=== PATIENT | male | born 1955 | race Caucasian/White ===

== ENCOUNTER 2016-12-13 18:30 | Inpatient (IN) | payer OTHER ==
[~2016-12-13] VITALS: Ht 177.8 cm; Wt 117.3 kg
--- NOTE | ~2016-12-13 | PROC NOTE ---
[place], [place] PROCEDURE NOTE NAME: HIMA PARNELL UNIT #: [id number] ROOM: [place] [address] DOCTOR: LINDSEY AGARWAL DO BIRTHDATE: [birth year] DOS: 12/14/2016 PROCEDURE: Central venous catheter placement. TIME: 1800 hours. INDICATIONS: Hemodynamic monitoring, intravenous access. RESIDENT: Dr. Rex Siddiqi. ATTENDING: Lindsey Agarwal DO PROCEDURE IN DETAIL: Timeout was completed, verifying correct patient, procedure, site, and positioning. The patient was placed in dependent position appropriate for central line placement, based on initially it was the left femoral vein, the left groin was prepped and draped in a sterile fashion. 1% lidocaine was used to anesthetize the skin. This attempt was unsuccessful and so the sterile scrub was broken and bleeding was controlled. The patient was reprepped and draped in a sterile fashion of the left neck. 1% lidocaine was used to anesthetize the surrounding skin. Triple-lumen catheter was introduced into the left internal jugular vein using Seldinger technique under ultrasound guidance, the catheter was threaded smoothly over the guidewire and appropriate blood return was obtained. Each lumen of the catheter was evacuated of air and flushed with sterile saline. Catheter was then sutured in place to the skin and a sterile dressing was applied. The patient tolerated the procedure well. I performed the procedure. Estimated blood loss was minimal. There were no complications. Chest x-ray is pending. LINDSEY AGARWAL DO CM:PROCNOTE:PROCEDURE NOTE 13 [id number] LINDSEY AGARWAL DO
[~2016-12-13 18:30] MED LIST: ACCUPRIL5 M1 PO; AMITRIPTYLINE H10 M1 PO; AMITRIPTYLINE10 MG PO; ATIVAN1 MG PO; ATORVASTATIN CA40 M1 PO; AUGMENTIN 875875 MG PO; BACTRIM DS 8001 TA1 PO; BUTORPHANOL10 MG/M1 NAS; CEFTRIAXONE1 GM IJ; CELEXA40 MG PO; CEPHALEXIN500 M1 PO; CLOPIDOGREL75 MG PO; Clopidogrel75 MG PO; DILTIAZEM 24HR120 MG PO; FIORICET 325 MG1 TAB PO; FLEXERIL10 MG PO; FLONASE ALLERG9.9 ML NS; FLUTICASON0.05 MG/AC NAS; HYDROCODONE BIT1 T11 PO; IMDUR60 MG PO; KEPPRA1000 MG PO; LEVOTHYROXIN0.075 MG PO; Lopressor25 MG PO; METOPROLOL50 MG PO; MIRTAZAPINE15 M2 PO; MOTRIN800 MG PO; NEURONTIN400 MG PO; NITROSTAT0.4 MG SL; OXCARBAZEPINE300 M1 PO; PLAVIX75 MG PO; PREDNICOT20 MG PO; PREDNISONE20 M1 PO; PRILOSEC20 MG PO; QUINAPRIL HYDRO1 TA3 PO; Quinapril HCl10 MG PO; ROBAXIN500 M1 PO; SIMVASTATIN20 MG PO; STADOL NS10 MG/ML NAS; SYNTHROID0.05 MG PO; TESSALON PERLE200 MG PO; TOPAMAX200 MG PO; TRAZODONE150 MG PO; VALIUM5 MG PO; ZITHROMAX Z PA250 MG PO; ZITHROMAX500 MG PO; Zofran4 MG PO
[2016-12-13 19:00] LABS: BASO # 0.1 10*3/uL (0.0-0.1); BASO % 0.7 % (0.0-1.0); EOS # 0.2 10*3/uL (0.0-0.4); EOS % 2.1 % (1.0-4.0); HEMATOCRIT 47.4 % (42.0-52.0); HEMOGLOBIN 15.9 g/dl (14.0-18.0); LYMPH % 36.3 % (27.0-41.0); MEAN CELL VOLUME 94.4 fl (80.0-94.0); MEAN CORPUSCULAR HGB 31.7 pg (27.0-31.0); MEAN CORPUSCULAR HGB CONC 33.5 g/dl (33.0-37.0); MEAN PLATELET VOLUME 10.2 fl (9.6-12.3); MONO # 0.5 10*3/uL (0.1-1.0); MONO % 4.4 % (3.0-9.0); NEUT # 6.2 10*3/uL (2.3-7.9); NEUT % 56.2 % (47.0-73.0); PLATELET COUNT AUTOMATED 238 10*3/uL (130-400); RED BLOOD COUNT 5.02 10*6/uL (4.50-5.90); RED CELL DISTRI WIDTH 14.2 % (0-14.5)
[2016-12-13 19:17] LABS: ALBUMIN 3.6 gm/dl (3.1-4.5); ALKALINE PHOSPHATASE 74 U/L (45-117); BILIRUBIN, TOTAL 0.5 mg/dl (0.2-1.0); BUN 12 mg/dl (7-24); CARBON DIOXIDE 26 mmol/L (21-32); CHLORIDE 101 mmol/L (98-107); EST GLOM FILT AFRICAN AMERICAN > 60 ml/min; GLUCOSE 170 mg/dL (65-99); MAGNESIUM 2.2 mg/dL (1.5-2.1); SGOT/AST 27 IU/L (3-35); SGPT/ALT 18 U/L (12-78); SODIUM 136 mmol/L (136-145); TOTAL PROTEIN 8.1 gm/dL (6.4-8.2)
[2016-12-13 19:18] LABS: TROPONIN I < 0.015 ng/ml (<0.045)
[2016-12-13 19:25] LABS: PROTHROMBIN TIME 10.8 SECONDS (9.0-12.4)
[2016-12-13 20:00] VITALS: BP 161/105
[2016-12-13 21:05] VITALS: BP 141/97
[2016-12-13 21:45] VITALS: BP 138/95
[2016-12-13 22:00] VITALS: BP 138/95
[2016-12-13] MEDS ORDERED: LEVEMIR10 ML SC (22:02)
[2016-12-14] VITALS: BP 124/76
[2016-12-14 07:02] LABS: BASO % 0.3 % (0.0-1.0); EOS % 0.1 % (1.0-4.0); HEMOGLOBIN 15.1 g/dl (14.0-18.0); LYMPH # 1.4 10*3/uL (1.3-4.4); MEAN CELL VOLUME 95.9 fl (80.0-94.0); MEAN CORPUSCULAR HGB 32.2 pg (27.0-31.0); MEAN CORPUSCULAR HGB CONC 33.6 g/dl (33.0-37.0); MONO # 0.1 10*3/uL (0.1-1.0); MONO % 1.1 % (3.0-9.0); PLATELET COUNT AUTOMATED 210 10*3/uL (130-400); RED BLOOD COUNT 4.69 10*6/uL (4.50-5.90); RED CELL DISTRI WIDTH 14.4 % (0-14.5); WHITE BLOOD COUNT 7.6 10*3/uL (4.8-10.8)
[2016-12-14 07:18] LABS: BUN 16 mg/dl (7-24); CARBON DIOXIDE 24 mmol/L (21-32); CHLORIDE 104 mmol/L (98-107); CHOLESTEROL 122 mg/dL (<200); EST GLOM FILT AFRICAN AMERICAN > 60 ml/min; GLUCOSE 147 mg/dL (65-99); HDL CHOLESTEROL 37 mg/dl (40-60); LDL CHOLESTEROL 67 mg/dL (9-159); MAGNESIUM 2.4 mg/dL (1.5-2.1); PHOSPHOROUS 2.7 mg/dL (2.5-4.9); POTASSIUM 4.7 mmol/L (3.5-5.1); SODIUM 136 mmol/L (136-145); TRIGLYCERIDES 90 mg/dl (<150); VLDL CHOLESTEROL 18 mg/dL (6-40)
[2016-12-14 07:24] LABS: THYROID STIM HORMONE (HS) 0.303 uIU/ml (0.358-4.75)
[2016-12-14 08:00] VITALS: BP 140/110
[2016-12-14 12:00] VITALS: BP 132/70
[2016-12-14 19:00] VITALS: BP 148/82
[2016-12-14 19:15] LABS: CKMB 1.3 ng/ml (0.5-3.6); CPK 106 U/L (39-308)
[2016-12-14 19:16] LABS: TROPONIN I < 0.015 ng/ml (<0.045)
[2016-12-14 19:22] VITALS: BP 157/73
[2016-12-14] MEDS ORDERED: ATORVASTATIN CA40 M1 PO (20:05)
[2016-12-14] MEDS ORDERED: CLOPIDOGREL75 MG PO (20:05)
[2016-12-14] MEDS ORDERED: TOPROL XL50 M1 PO (20:05)
[2016-12-14 20:33] VITALS: BP 167/77
[2016-12-14 20:48] LABS: PROTHROMBIN TIME 10.8 SECONDS (9.0-12.4)
[2016-12-16 11:37] LABS: VITAMIN D, 25-HYDROXY 30.9 ng/mL (30-100)
[2016-12-16 11:38] LABS: FOLIC ACID 3.65 ng/mL (>5.38)
== END 2016-12-14 21:45 | disposition short-term general hospital (02) | DRG 291 ==
LOC: ED 18:30 → 4E 20:06 → ICCU 20:06 → EDHOLD 20:06 → 4E 20:20 → ICCU 12-14 18:36
PROVIDERS: Internal Medicine; Internal Medicine Hospice and Palliative Medicine
PROC: 02HV33Z Insertion of Infusion Device into Superior Vena Cava, Percutaneous Approach (ICD-10-PCS; principal; 2016-12-14)
DX: I11.0 Hypertensive heart disease with heart failure (principal); I63.9 Cerebral infarction, unspecified; E11.65 Type 2 diabetes mellitus with hyperglycemia; R07.89 Other chest pain; I25.2 Old myocardial infarction; I50.31 Acute diastolic (congestive) heart failure; E83.41 Hypermagnesemia; I25.10 Atherosclerotic heart disease of native coronary artery without angina pectoris; E78.5 Hyperlipidemia, unspecified; E03.9 Hypothyroidism, unspecified; G40.909 Epilepsy, unspecified, not intractable, without status epilepticus; D75.89 Other specified diseases of blood and blood-forming organs; E66.9 Obesity, unspecified; Z91.013 Allergy to seafood; Z86.73 Personal history of transient ischemic attack (TIA), and cerebral infarction without residual deficits; Z86.718 Personal history of other venous thrombosis and embolism; Z86.711 Personal history of pulmonary embolism; Z87.01 Personal history of pneumonia (recurrent); Z68.37 Body mass index [BMI] 37.0-37.9, adult; Z90.49 Acquired absence of other specified parts of digestive tract; Z80.9 Family history of malignant neoplasm, unspecified; Z87.81 Personal history of (healed) traumatic fracture; Z88.6 Allergy status to analgesic agent; Z79.4 Long term (current) use of insulin; Z79.899 Other long term (current) drug therapy; Z72.0 Tobacco use

== ENCOUNTER 2017-02-04 10:23 | Emergency (ER) | payer OTHER ==
[~2017-02-04] VITALS: Ht 177.8 cm; Wt 104.3 kg
[~2017-02-04 10:23] MED LIST changes: +LEVEMIR10 ML SC; +TOPROL XL50 M1 PO
[2017-02-04 11:14] LABS: BASO # 0.1 10*3/uL (0.0-0.1); BASO % 0.7 % (0.0-1.0); EOS # 0.3 10*3/uL (0.0-0.4); HEMATOCRIT 45.5 % (42.0-52.0); HEMOGLOBIN 14.8 g/dl (14.0-18.0); IG # 0.1 10*3/uL (0.0-0.1); LYMPH # 3.4 10*3/uL (1.3-4.4); LYMPH % 32.5 % (27.0-41.0); MEAN CELL VOLUME 96.4 fl (80.0-94.0); MEAN CORPUSCULAR HGB 31.4 pg (27.0-31.0); MEAN CORPUSCULAR HGB CONC 32.5 g/dl (33.0-37.0); MEAN PLATELET VOLUME 10.3 fl (9.6-12.3); MONO # 0.8 10*3/uL (0.1-1.0); MONO % 7.4 % (3.0-9.0); NEUT # 5.9 10*3/uL (2.3-7.9); NEUT % 55.9 % (47.0-73.0); PLATELET COUNT AUTOMATED 219 10*3/uL (130-400); RED BLOOD COUNT 4.72 10*6/uL (4.50-5.90); RED CELL DISTRI WIDTH 14.1 % (0-14.5); WHITE BLOOD COUNT 10.6 10*3/uL (4.8-10.8)
[2017-02-04 11:22] LABS: PROTHROMBIN TIME 10.7 SECONDS (9.0-12.4)
[2017-02-04 11:32] LABS: ALBUMIN 3.3 gm/dl (3.1-4.5); BUN 12 mg/dl (7-24); CARBON DIOXIDE 26 mmol/L (21-32); CHLORIDE 103 mmol/L (98-107); EST GLOM FILT AFRICAN AMERICAN > 60 ml/min; GLUCOSE 110 mg/dL (65-99); SGOT/AST 16 IU/L (3-35); SGPT/ALT 17 U/L (12-78); SODIUM 139 mmol/L (136-145)
[2017-02-04 11:34] LABS: ALKALINE PHOSPHATASE 76 U/L (45-117); BILIRUBIN, TOTAL 0.4 mg/dl (0.2-1.0); TOTAL PROTEIN 7.6 gm/dL (6.4-8.2)
== END 2017-02-04 12:34 | disposition home or self-care (01) ==
LOC: ED 10:23
PROVIDERS: Nurse Practitioner Family
DX: M79.671 Pain in right foot (principal); E11.9 Type 2 diabetes mellitus without complications; I25.10 Atherosclerotic heart disease of native coronary artery without angina pectoris; Z86.718 Personal history of other venous thrombosis and embolism; Z87.891 Personal history of nicotine dependence; Z88.0 Allergy status to penicillin; Z91.013 Allergy to seafood; Z79.4 Long term (current) use of insulin

== ENCOUNTER 2017-02-17 11:52 | Inpatient (IN) | payer OTHER ==
[~2017-02-17] VITALS: Ht 177.8 cm; Wt 120.3 kg
[2017-02-17 11:52] VITALS: BP 138/83
[2017-02-17 12:24] LABS: BASO # 0.1 10*3/uL (0.0-0.1); BASO % 0.5 % (0.0-1.0); EOS # 0.3 10*3/uL (0.0-0.4); EOS % 1.6 % (1.0-4.0); HEMATOCRIT 43.1 % (42.0-52.0); HEMOGLOBIN 14.5 g/dl (14.0-18.0); IG # 0.1 10*3/uL (0.0-0.1); LYMPH # 3.1 10*3/uL (1.3-4.4); LYMPH % 20.2 % (27.0-41.0); MEAN CELL VOLUME 95.8 fl (80.0-94.0); MEAN CORPUSCULAR HGB 32.2 pg (27.0-31.0); MEAN CORPUSCULAR HGB CONC 33.6 g/dl (33.0-37.0); MEAN PLATELET VOLUME 10.6 fl (9.6-12.3); MONO % 6.4 % (3.0-9.0); NEUT # 10.9 10*3/uL (2.3-7.9); NEUT % 70.7 % (47.0-73.0); PLATELET COUNT AUTOMATED 230 10*3/uL (130-400); RED CELL DISTRI WIDTH 13.9 % (0-14.5); WHITE BLOOD COUNT 15.4 10*3/uL (4.8-10.8)
[2017-02-17 12:29] LABS: PROTHROMBIN TIME 10.3 SECONDS (9.0-12.4)
[2017-02-17 12:38] LABS: ALKALINE PHOSPHATASE 79 U/L (45-117); BILIRUBIN, TOTAL 0.4 mg/dl (0.2-1.0); BUN 15 mg/dl (7-24); CARBON DIOXIDE 24 mmol/L (21-32); CHLORIDE 102 mmol/L (98-107); EST GLOM FILT AFRICAN AMERICAN > 60 ml/min; GLUCOSE 172 mg/dL (65-99); SGOT/AST 19 IU/L (3-35); SGPT/ALT 14 U/L (12-78); SODIUM 135 mmol/L (136-145); TOTAL PROTEIN 7.6 gm/dL (6.4-8.2)
[2017-02-17 12:39] LABS: TROPONIN I < 0.015 ng/ml (<0.045)
[2017-02-17 12:42] VITALS: BP 108/66
[2017-02-17 13:02] VITALS: BP 100/72
[2017-02-17] MEDS ORDERED: ANTIBIOTIC (13:48)
[2017-02-17] MEDS ORDERED: LOPRESSOR50 M1 PO (15:43)
[2017-02-17] MEDS ORDERED: VENTOLIN H0.09 MG/AC INH (15:44)
[2017-02-17] MEDS ORDERED: LISINOPRIL-HYDR1 TA1 PO (15:45)
[2017-02-17] MEDS ORDERED: PROZAC40 M1 PO (15:46)
[2017-02-17] MEDS ORDERED: DOXYCYCLINE100 MG PO (15:48)
[2017-02-17] MEDS ORDERED: BUTORPHANOL10 MG/M1 NAS (15:48)
[2017-02-17] MEDS ORDERED: CYCLOBENZAPRINE10 MG PO (15:51)
[2017-02-17] MEDS ORDERED: LASIX40 MG PO (15:51)
[2017-02-17] MEDS ORDERED: NEURONTIN300 MG PO (15:52)
[2017-02-17] MEDS ORDERED: METFORMIN1000 MG PO (15:53)
[2017-02-17] MEDS ORDERED: FLONASE ALLERG9.9 ML NAS (15:53)
[2017-02-17 16:00] VITALS: BP 115/40
[2017-02-17 20:00] VITALS: BP 146/66
[2017-02-18] VITALS: BP 114/61
[2017-02-18 06:10] LABS: BASO % 0.2 % (0.0-1.0); HEMATOCRIT 40.3 % (42.0-52.0); HEMOGLOBIN 13.2 g/dl (14.0-18.0); IG # 0.2 10*3/uL (0.0-0.1); LYMPH % 11.5 % (27.0-41.0); MEAN CELL VOLUME 96.2 fl (80.0-94.0); MEAN CORPUSCULAR HGB 31.5 pg (27.0-31.0); MEAN CORPUSCULAR HGB CONC 32.8 g/dl (33.0-37.0); MEAN PLATELET VOLUME 10.7 fl (9.6-12.3); MONO # 0.5 10*3/uL (0.1-1.0); NEUT # 14.3 10*3/uL (2.3-7.9); NEUT % 84.1 % (47.0-73.0); PLATELET COUNT AUTOMATED 206 10*3/uL (130-400); RED BLOOD COUNT 4.19 10*6/uL (4.50-5.90); RED CELL DISTRI WIDTH 13.9 % (0-14.5)
[2017-02-18 06:45] LABS: ALBUMIN 2.7 gm/dl (3.1-4.5); ALKALINE PHOSPHATASE 73 U/L (45-117); BILIRUBIN, TOTAL 0.3 mg/dl (0.2-1.0); BUN 17 mg/dl (7-24); CARBON DIOXIDE 20 mmol/L (21-32); CHLORIDE 103 mmol/L (98-107); CHOLESTEROL 114 mg/dL (<200); EST GLOM FILT AFRICAN AMERICAN > 60 ml/min; GLUCOSE 200 mg/dL (65-99); HDL CHOLESTEROL 35 mg/dl (40-60); LDL CHOLESTEROL 62 mg/dL (9-159); MAGNESIUM 1.9 mg/dL (1.5-2.1); PHOSPHOROUS 2.1 mg/dL (2.5-4.9); POTASSIUM 4.5 mmol/L (3.5-5.1); PROTHROMBIN TIME 10.6 SECONDS (9.0-12.4); SGOT/AST 16 IU/L (3-35); SGPT/ALT 15 U/L (12-78); SODIUM 133 mmol/L (136-145); TOTAL PROTEIN 7.4 gm/dL (6.4-8.2); TRIGLYCERIDES 83 mg/dl (<150); VLDL CHOLESTEROL 17 mg/dL (6-40)
[2017-02-18 06:51] LABS: THYROID STIM HORMONE (HS) 0.232 uIU/ml (0.358-4.75)
[2017-02-18 06:53] LABS: HEMOGLOBIN A1c 6.3 % (4.8-5.6)
[2017-02-18 07:22] LABS: VITAMIN D, 25-HYDROXY 32.1 ng/mL (30-100)
[2017-02-18 07:23] LABS: FOLIC ACID 3.08 ng/mL (>5.38)
[2017-02-18 08:00] VITALS: BP 118/43
[2017-02-18 12:00] VITALS: BP 106/68
[2017-02-18 16:00] VITALS: BP 111/74
[2017-02-18 20:00] VITALS: BP 117/86
[2017-02-19] VITALS: BP 98/84
[2017-02-19 08:00] VITALS: BP 134/88
[2017-02-19 12:00] VITALS: BP 134/88
[2017-02-19] MEDS ORDERED: NATURE'S BLEND F1 MG PO (15:57)
[2017-02-19] MEDS ORDERED: IMDUR SA60 M1 PO (15:57)
[2017-02-19] MEDS ORDERED: PANTOPRAZOLE SO40 MG PO (15:57)
[2017-02-19] MEDS ORDERED: PREDNISONE10 MG PO (15:57)
[2017-02-19] MEDS ORDERED: K-PHOS500 MG PO (15:57)
[2017-02-19] MEDS ORDERED: RANEXA500 M1 PO (15:57)
[2017-02-19] MEDS ORDERED: CLOPIDOGREL75 MG PO (15:57)
[2017-02-19] MEDS ORDERED: ATORVASTATIN CA20 M1 PO (15:57)
[2017-02-19] MEDS ORDERED: TOPROL XL50 M1 PO (15:57)
[2017-02-19 16:00] VITALS: BP 145/83
[2017-02-19] MEDS ORDERED: DOXYCYCLINE100 MG PO (16:26)
== END 2017-02-19 16:59 | disposition home or self-care (01) | DRG 871 ==
LOC: ED 11:52 → 5E 14:20 → EDHOLD 14:20 → 5E 14:25
PROVIDERS: Emergency Medicine; Internal Medicine
DX: A41.9 Sepsis, unspecified organism (principal); J18.9 Pneumonia, unspecified organism; E43 Unspecified severe protein-calorie malnutrition; J44.1 Chronic obstructive pulmonary disease with (acute) exacerbation; J44.0 Chronic obstructive pulmonary disease with (acute) lower respiratory infection; G00-G99 Diseases of the nervous system; E87.1 Hypo-osmolality and hyponatremia; E03.9 Hypothyroidism, unspecified; I25.10 Atherosclerotic heart disease of native coronary artery without angina pectoris; G40.909 Epilepsy, unspecified, not intractable, without status epilepticus; E78.5 Hyperlipidemia, unspecified; I10 Essential (primary) hypertension; E66.9 Obesity, unspecified; F44.4 Conversion disorder with motor symptom or deficit; F17.200 Nicotine dependence, unspecified, uncomplicated; E53.8 Deficiency of other specified B group vitamins; E83.39 Other disorders of phosphorus metabolism; E11.9 Type 2 diabetes mellitus without complications; Z79.4 Long term (current) use of insulin; Q85.00 Neurofibromatosis, unspecified; Z79.899 Other long term (current) drug therapy; Z79.84 Long term (current) use of oral hypoglycemic drugs; Z86.711 Personal history of pulmonary embolism; Z79.01 Long term (current) use of anticoagulants; Z88.6 Allergy status to analgesic agent; Z91.013 Allergy to seafood; Z90.49 Acquired absence of other specified parts of digestive tract; Z80.1 Family history of malignant neoplasm of trachea, bronchus and lung; Z80.3 Family history of malignant neoplasm of breast; I25.2 Old myocardial infarction; Z68.38 Body mass index [BMI] 38.0-38.9, adult

== ENCOUNTER 2017-03-04 15:39 | Inpatient (IN) | payer OTHER ==
[~2017-03-04] VITALS: Ht 177.8 cm; Wt 119.9 kg
[~2017-03-04 15:39] MED LIST changes: +ANTIBIOTIC; +ATORVASTATIN CA20 M1 PO; +CYCLOBENZAPRINE10 MG PO; +DOXYCYCLINE100 MG PO; +FLONASE ALLERG9.9 ML NAS; +IMDUR SA60 M1 PO; +K-PHOS500 MG PO; +LASIX40 MG PO; +LISINOPRIL-HYDR1 TA1 PO; +LOPRESSOR50 M1 PO; +METFORMIN1000 MG PO; +NATURE'S BLEND F1 MG PO; +NEURONTIN300 MG PO; +PANTOPRAZOLE SO40 MG PO; +PREDNISONE10 MG PO; +PROZAC40 M1 PO; +RANEXA500 M1 PO; +VENTOLIN H0.09 MG/AC INH
[2017-03-04 15:41] VITALS: BP 134/98
[2017-03-04] MEDS ORDERED: Flovent 220 M220 MCG INH (15:46)
[2017-03-04] MEDS ORDERED: NEURONTIN100 MG PO (15:48)
[2017-03-04] MEDS ORDERED: NEURONTIN300 MG PO (15:48)
[2017-03-04] MEDS ORDERED: LANTUS100 U/ML SC (15:49)
[2017-03-04] MEDS ORDERED: NITROGLYCERIN0.4 MG PO (15:50)
[2017-03-04 15:56] LABS: BASO # 0.1 10*3/uL (0.0-0.1); BASO % 0.5 % (0.0-1.0); EOS # 0.3 10*3/uL (0.0-0.4); EOS % 1.7 % (1.0-4.0); HEMATOCRIT 49.7 % (42.0-52.0); HEMOGLOBIN 16.6 g/dl (14.0-18.0); IG # 0.2 10*3/uL (0.0-0.1); LYMPH # 4.2 10*3/uL (1.3-4.4); LYMPH % 22.3 % (27.0-41.0); MEAN CELL VOLUME 95.4 fl (80.0-94.0); MEAN CORPUSCULAR HGB 31.9 pg (27.0-31.0); MEAN CORPUSCULAR HGB CONC 33.4 g/dl (33.0-37.0); MEAN PLATELET VOLUME 10.1 fl (9.6-12.3); MONO % 5.1 % (3.0-9.0); NEUT # 13.1 10*3/uL (2.3-7.9); NEUT % 69.3 % (47.0-73.0); PLATELET COUNT AUTOMATED 279 10*3/uL (130-400); RED BLOOD COUNT 5.21 10*6/uL (4.50-5.90); RED CELL DISTRI WIDTH 14.1 % (0-14.5); WHITE BLOOD COUNT 18.9 10*3/uL (4.8-10.8)
[2017-03-04 16:17] LABS: BUN 13 mg/dl (7-24); CARBON DIOXIDE 22 mmol/L (21-32); CHLORIDE 103 mmol/L (98-107); EST GLOM FILT AFRICAN AMERICAN 59 ml/min; GLUCOSE 139 mg/dL (65-99); POTASSIUM 3.9 mmol/L (3.5-5.1); SODIUM 136 mmol/L (136-145); TROPONIN I < 0.015 ng/ml (<0.045)
[2017-03-04 17:53] VITALS: BP 136/94
[2017-03-04 18:00] VITALS: BP 130/72
[2017-03-04 18:20] VITALS: BP 130/72
[2017-03-04 20:21] LABS: LA>2 REFLEX 2 HR DRAW NOW
[2017-03-04 21:15] LABS: BILIRUBIN NEGATIVE (NEGATIVE); BLOOD 2+ (NEGATIVE); CLARITY CLEAR (CLEAR); COLOR YELLOW (YELLOW); GLUCOSE NEGATIVE (NEGATIVE); KETONE NEGATIVE (NEGATIVE); LEUKO ESTERASE NEGATIVE (NEGATIVE); NITRITE NEGATIVE (NEGATIVE); PROTEIN 1+ (NEGATIVE); SPECIFIC GRAVITY <= 1.005 (1.005-1.030); UROBILINOGEN 0.2 E.U./dl (0.2-1.0)
[2017-03-04 21:20] LABS: BACTERIA 4+; URINE REFLEX COMMENT YES (NO); WBC 21-30 wbc/hpf (0-5)
[2017-03-05 04:16] LABS: BASO # 0.1 10*3/uL (0.0-0.1); BASO % 0.5 % (0.0-1.0); EOS # 0.3 10*3/uL (0.0-0.4); EOS % 2.6 % (1.0-4.0); IG # 0.1 10*3/uL (0.0-0.1); LYMPH % 30.8 % (27.0-41.0); MEAN CELL VOLUME 95.5 fl (80.0-94.0); MEAN CORPUSCULAR HGB 31.1 pg (27.0-31.0); MEAN CORPUSCULAR HGB CONC 32.6 g/dl (33.0-37.0); MEAN PLATELET VOLUME 10.2 fl (9.6-12.3); MONO # 0.9 10*3/uL (0.1-1.0); MONO % 6.6 % (3.0-9.0); NEUT # 7.7 10*3/uL (2.3-7.9); NEUT % 58.6 % (47.0-73.0); PLATELET COUNT AUTOMATED 216 10*3/uL (130-400); RED BLOOD COUNT 4.47 10*6/uL (4.50-5.90); RED CELL DISTRI WIDTH 14.5 % (0-14.5); WHITE BLOOD COUNT 13.1 10*3/uL (4.8-10.8)
[2017-03-05 04:20] LABS: HEMATOCRIT 42.7 % (42.0-52.0); HEMOGLOBIN 13.9 g/dl (14.0-18.0)
[2017-03-05 04:25] LABS: PROTHROMBIN TIME 10.4 SECONDS (9.0-12.4)
[2017-03-05 04:35] LABS: HEMOGLOBIN A1c 6.7 % (4.8-5.6)
[2017-03-05 04:36] LABS: ALBUMIN 2.8 gm/dl (3.1-4.5); BUN 15 mg/dl (7-24); CARBON DIOXIDE 28 mmol/L (21-32); CHLORIDE 103 mmol/L (98-107); CHOLESTEROL 136 mg/dL (<200); EST GLOM FILT AFRICAN AMERICAN > 60 ml/min; GLUCOSE 102 mg/dL (65-99); MAGNESIUM 2.1 mg/dL (1.5-2.1); PHOSPHOROUS 3.8 mg/dL (2.5-4.9); POTASSIUM 3.9 mmol/L (3.5-5.1); SGOT/AST 14 IU/L (3-35); SGPT/ALT 20 U/L (12-78); SODIUM 140 mmol/L (136-145); TRIGLYCERIDES 176 mg/dl (<150); VLDL CHOLESTEROL 35 mg/dL (6-40)
[2017-03-05 04:38] LABS: ALKALINE PHOSPHATASE 68 U/L (45-117); BILIRUBIN, TOTAL 0.4 mg/dl (0.2-1.0); HDL CHOLESTEROL 33 mg/dl (40-60); LDL CHOLESTEROL 68 mg/dL (9-159); TOTAL PROTEIN 6.6 gm/dL (6.4-8.2)
[2017-03-05 06:34] LABS: FOLIC ACID 3.96 ng/mL (>5.38); VITAMIN D, 25-HYDROXY 31.3 ng/mL (30-100)
[2017-03-05 08:00] VITALS: BP 128/50
[2017-03-05 12:00] VITALS: BP 157/59
[2017-03-05 16:00] VITALS: BP 160/42
[2017-03-05 20:00] VITALS: BP 134/98
[2017-03-05 23:46] VITALS: BP 130/80
[2017-03-06] MEDS ORDERED: PANTOPRAZOLE SO40 MG PO (00:29)
[2017-03-06] MEDS ORDERED: NATURE'S BLEND F1 MG PO (00:29)
== END 2017-03-06 01:00 | disposition short-term general hospital (02) | DRG 871 ==
LOC: ED 15:39 → 5E 17:27 → EDHOLD 17:27 → 5E 17:32
PROVIDERS: Emergency Medicine; Internal Medicine
DX: A41.9 Sepsis, unspecified organism (principal); N17.0 Acute kidney failure with tubular necrosis; J18.9 Pneumonia, unspecified organism; J44.1 Chronic obstructive pulmonary disease with (acute) exacerbation; G40.909 Epilepsy, unspecified, not intractable, without status epilepticus; I25.10 Atherosclerotic heart disease of native coronary artery without angina pectoris; I10 Essential (primary) hypertension; E03.9 Hypothyroidism, unspecified; R65.20 Severe sepsis without septic shock; Z79.4 Long term (current) use of insulin; Z86.73 Personal history of transient ischemic attack (TIA), and cerebral infarction without residual deficits; Z86.718 Personal history of other venous thrombosis and embolism; Z79.01 Long term (current) use of anticoagulants; I25.2 Old myocardial infarction; Z86.711 Personal history of pulmonary embolism; Q85.00 Neurofibromatosis, unspecified; Z90.49 Acquired absence of other specified parts of digestive tract; Z90.3 Acquired absence of stomach [part of]; Z95.5 Presence of coronary angioplasty implant and graft; Z80.3 Family history of malignant neoplasm of breast; Z80.1 Family history of malignant neoplasm of trachea, bronchus and lung; Z87.891 Personal history of nicotine dependence; Z88.6 Allergy status to analgesic agent; Z91.013 Allergy to seafood; Z98.1 Arthrodesis status; R07.9 Chest pain, unspecified; E78.2 Mixed hyperlipidemia; E11.65 Type 2 diabetes mellitus with hyperglycemia; G47.33 Obstructive sleep apnea (adult) (pediatric); E66.01 Morbid (severe) obesity due to excess calories; E53.8 Deficiency of other specified B group vitamins; Z68.37 Body mass index [BMI] 37.0-37.9, adult

== ENCOUNTER 2017-03-11 16:59 | Inpatient (IN) | payer OTHER ==
[~2017-03-11] VITALS: Ht 180.3 cm; Wt 120.9 kg
[~2017-03-11 16:59] MED LIST changes: +Flovent 220 M220 MCG INH; +LANTUS100 U/ML SC; +NEURONTIN100 MG PO; +NITROGLYCERIN0.4 MG PO
[2017-03-11 17:05] VITALS: BP 151/66
[2017-03-11 17:15] VITALS: BP 158/106
[2017-03-11 17:51] LABS: BASO # 0.1 10*3/uL (0.0-0.1); BASO % 0.5 % (0.0-1.0); EOS # 0.4 10*3/uL (0.0-0.4); HEMATOCRIT 47.1 % (42.0-52.0); HEMOGLOBIN 15.3 g/dl (14.0-18.0); IG # 0.1 10*3/uL (0.0-0.1); LYMPH # 4.4 10*3/uL (1.3-4.4); LYMPH % 31.2 % (27.0-41.0); MEAN CELL VOLUME 95.7 fl (80.0-94.0); MEAN CORPUSCULAR HGB 31.1 pg (27.0-31.0); MEAN CORPUSCULAR HGB CONC 32.5 g/dl (33.0-37.0); MONO # 0.9 10*3/uL (0.1-1.0); MONO % 6.1 % (3.0-9.0); NEUT # 8.3 10*3/uL (2.3-7.9); NEUT % 58.5 % (47.0-73.0); PLATELET COUNT AUTOMATED 194 10*3/uL (130-400); RED BLOOD COUNT 4.92 10*6/uL (4.50-5.90); WHITE BLOOD COUNT 14.2 10*3/uL (4.8-10.8)
[2017-03-11 17:55] LABS: PROTHROMBIN TIME 10.1 SECONDS (9.0-12.4)
[2017-03-11 18:04] LABS: ALBUMIN 3.1 gm/dl (3.1-4.5); ALKALINE PHOSPHATASE 73 U/L (45-117); BILIRUBIN, TOTAL 0.3 mg/dl (0.2-1.0); BUN 8 mg/dl (7-24); CARBON DIOXIDE 25 mmol/L (21-32); CHLORIDE 103 mmol/L (98-107); EST GLOM FILT AFRICAN AMERICAN > 60 ml/min; GLUCOSE 130 mg/dL (65-99); POTASSIUM 4.1 mmol/L (3.5-5.1); SGOT/AST 19 IU/L (3-35); SGPT/ALT 21 U/L (12-78); SODIUM 136 mmol/L (136-145); TOTAL PROTEIN 7.4 gm/dL (6.4-8.2)
[2017-03-11 18:05] LABS: TROPONIN I 0.015 ng/ml (<0.045)
[2017-03-11 18:35] VITALS: BP 152/103
[2017-03-11 20:00] VITALS: BP 132/106
[2017-03-11 21:23] VITALS: BP 134/69
[2017-03-12] VITALS: BP 147/104
[2017-03-12 04:00] VITALS: BP 140/82
[2017-03-12 06:42] LABS: BASO % 0.5 % (0.0-1.0); EOS # 0.4 10*3/uL (0.0-0.4); EOS % 5.1 % (1.0-4.0); HEMOGLOBIN 13.4 g/dl (14.0-18.0); IG # 0.1 10*3/uL (0.0-0.1); LYMPH # 3.6 10*3/uL (1.3-4.4); LYMPH % 40.9 % (27.0-41.0); MEAN CELL VOLUME 96.4 fl (80.0-94.0); MEAN CORPUSCULAR HGB 31.8 pg (27.0-31.0); MEAN PLATELET VOLUME 10.9 fl (9.6-12.3); MONO # 0.7 10*3/uL (0.1-1.0); MONO % 7.8 % (3.0-9.0); NEUT # 3.9 10*3/uL (2.3-7.9); NEUT % 45.1 % (47.0-73.0); PLATELET COUNT AUTOMATED 170 10*3/uL (130-400); RED BLOOD COUNT 4.21 10*6/uL (4.50-5.90); RED CELL DISTRI WIDTH 14.3 % (0-14.5); WHITE BLOOD COUNT 8.7 10*3/uL (4.8-10.8)
[2017-03-12 06:44] LABS: HEMATOCRIT 40.6 % (42.0-52.0)
[2017-03-12 07:15] LABS: BUN 7 mg/dl (7-24); CARBON DIOXIDE 25 mmol/L (21-32); CHLORIDE 105 mmol/L (98-107); GLUCOSE 98 mg/dL (65-99); POTASSIUM 3.7 mmol/L (3.5-5.1); SODIUM 138 mmol/L (136-145)
[2017-03-12 07:26] LABS: EST GLOM FILT AFRICAN AMERICAN > 60 ml/min; PHOSPHOROUS 3.1 mg/dL (2.5-4.9)
[2017-03-12 08:00] VITALS: BP 120/90
[2017-03-12 11:40] VITALS: BP 130/72
[2017-03-12 16:00] VITALS: BP 140/90
[2017-03-12 20:00] VITALS: BP 121/78
[2017-03-13] VITALS: BP 126/82
[2017-03-13 07:13] LABS: BASO % 0.5 % (0.0-1.0); EOS # 0.4 10*3/uL (0.0-0.4); EOS % 4.7 % (1.0-4.0); HEMATOCRIT 40.4 % (42.0-52.0); HEMOGLOBIN 13.6 g/dl (14.0-18.0); IG # 0.1 10*3/uL (0.0-0.1); LYMPH # 3.6 10*3/uL (1.3-4.4); LYMPH % 41.8 % (27.0-41.0); MEAN CELL VOLUME 94.6 fl (80.0-94.0); MEAN CORPUSCULAR HGB 31.9 pg (27.0-31.0); MEAN CORPUSCULAR HGB CONC 33.7 g/dl (33.0-37.0); MEAN PLATELET VOLUME 11.6 fl (9.6-12.3); MONO # 0.7 10*3/uL (0.1-1.0); NEUT # 3.8 10*3/uL (2.3-7.9); NEUT % 43.7 % (47.0-73.0); NUCLEATED RED BLOOD CELL 0.2 % (0.0-0.0); PLATELET COUNT AUTOMATED 171 10*3/uL (130-400); RED BLOOD COUNT 4.27 10*6/uL (4.50-5.90); RED CELL DISTRI WIDTH 14.1 % (0-14.5); WHITE BLOOD COUNT 8.6 10*3/uL (4.8-10.8)
[2017-03-13 12:00] VITALS: BP 127/89
[2017-03-13 16:00] VITALS: BP 120/74
[2017-03-13 18:15] VITALS: BP 140/80
[2017-03-14] VITALS: BP 148/92
[2017-03-14 04:00] VITALS: BP 138/84
[2017-03-14 06:23] LABS: BASO # 0.1 10*3/uL (0.0-0.1); BASO % 0.7 % (0.0-1.0); EOS # 0.4 10*3/uL (0.0-0.4); EOS % 5.3 % (1.0-4.0); HEMATOCRIT 41.2 % (42.0-52.0); HEMOGLOBIN 13.1 g/dl (14.0-18.0); IG # 0.1 10*3/uL (0.0-0.1); LYMPH # 2.8 10*3/uL (1.3-4.4); LYMPH % 40.1 % (27.0-41.0); MEAN CORPUSCULAR HGB 31.1 pg (27.0-31.0); MEAN CORPUSCULAR HGB CONC 31.8 g/dl (33.0-37.0); MEAN PLATELET VOLUME 11.2 fl (9.6-12.3); MONO # 0.7 10*3/uL (0.1-1.0); MONO % 9.7 % (3.0-9.0); NEUT % 43.5 % (47.0-73.0); PLATELET COUNT AUTOMATED 156 10*3/uL (130-400); RED BLOOD COUNT 4.21 10*6/uL (4.50-5.90); RED CELL DISTRI WIDTH 14.1 % (0-14.5)
[2017-03-14 06:27] LABS: MEAN CELL VOLUME 97.9 fl (80.0-94.0)
[2017-03-14 06:50] LABS: BUN 11 mg/dl (7-24); CARBON DIOXIDE 29 mmol/L (21-32); CHLORIDE 103 mmol/L (98-107); EST GLOM FILT AFRICAN AMERICAN > 60 ml/min; GLUCOSE 110 mg/dL (65-99); SODIUM 139 mmol/L (136-145)
[2017-03-14 08:00] VITALS: BP 141/102
[2017-03-14] MEDS ORDERED: DOXYCYCLINE100 M3 PO (11:01)
[2017-03-14] MEDS ORDERED: TOPROL XL50 M1 PO (11:01)
[2017-03-14] MEDS ORDERED: ATORVASTATIN CA20 M1 PO (11:01)
[2017-03-14] MEDS ORDERED: IMDUR SA30 MG PO (11:01)
[2017-03-14 11:09] VITALS: BP 142/96
[2017-03-14 12:07] LABS: ORGANISM ID Not indicated. (.); SPECIMEN SOURCE Urine (.); STREPTOCOCCUS PNEUMONIAE AG Negative (Negative)
[2017-03-14 15:07] LABS: LEGIONELLA URINARY ANTIGEN Negative (Negative)
== END 2017-03-14 12:19 | disposition home health service (06) | DRG 871 ==
LOC: ED 16:59 → EDHOLD 18:44 → 5E 18:44
PROVIDERS: Family Medicine; Hospitalist; Internal Medicine; Internal Medicine Hospice and Palliative Medicine; Student in an Organized Health Care Education/Training Program
PROC: 02HV33Z Insertion of Infusion Device into Superior Vena Cava, Percutaneous Approach (ICD-10-PCS; principal; 2017-03-13)
DX: A41.9 Sepsis, unspecified organism (principal); J15.6 Pneumonia due to other Gram-negative bacteria; I11.0 Hypertensive heart disease with heart failure; E44.0 Moderate protein-calorie malnutrition; I50.32 Chronic diastolic (congestive) heart failure; T38.0X5A Adverse effect of glucocorticoids and synthetic analogues, initial encounter; J44.9 Chronic obstructive pulmonary disease, unspecified; G40.909 Epilepsy, unspecified, not intractable, without status epilepticus; G43.909 Migraine, unspecified, not intractable, without status migrainosus; I25.10 Atherosclerotic heart disease of native coronary artery without angina pectoris; E03.9 Hypothyroidism, unspecified; E78.5 Hyperlipidemia, unspecified; G47.33 Obstructive sleep apnea (adult) (pediatric); F17.210 Nicotine dependence, cigarettes, uncomplicated; E11.65 Type 2 diabetes mellitus with hyperglycemia; E66.01 Morbid (severe) obesity due to excess calories; E53.8 Deficiency of other specified B group vitamins; Y92.89 Other specified places as the place of occurrence of the external cause; Z86.73 Personal history of transient ischemic attack (TIA), and cerebral infarction without residual deficits; Z86.718 Personal history of other venous thrombosis and embolism; I25.2 Old myocardial infarction; Z90.49 Acquired absence of other specified parts of digestive tract; Z90.3 Acquired absence of stomach [part of]; Z80.3 Family history of malignant neoplasm of breast; Z80.1 Family history of malignant neoplasm of trachea, bronchus and lung; Z88.6 Allergy status to analgesic agent; Z91.013 Allergy to seafood; Z79.899 Other long term (current) drug therapy; Z79.84 Long term (current) use of oral hypoglycemic drugs; Z79.4 Long term (current) use of insulin; Z68.36 Body mass index [BMI] 36.0-36.9, adult

== ENCOUNTER 2017-03-21 10:20 | Inpatient (IN) | payer OTHER ==
[~2017-03-21] VITALS: Ht 177.8 cm; Wt 119.3 kg
--- NOTE | ~2017-03-21 | EKG ---
[place], [place] ELECTROCARDIOGRAM REPORT NAME: HIMA PARNELL UNIT #: [id number] ROOM: 412 DOCTOR: LISA VICTOR MD BIRTHDATE: [birth year] DOS: 03/21/2017 TIME: 1027 hours. Normal sinus rhythm at 77 beats per minute. The tracing is normal. No previous tracing is available for comparison. LISA VICTOR MD CM:EKGRPT:ELECTROCARDIOGRAM REPORT 1731 LISA VICTOR MD
[~2017-03-21 10:20] MED LIST changes: +DOXYCYCLINE100 M3 PO; +IMDUR SA30 MG PO
[2017-03-21 10:26] VITALS: BP 140/94
[2017-03-21 10:39] LABS: BASO # 0.1 10*3/uL (0.0-0.1); BASO % 1.2 % (0.0-1.0); EOS # 0.3 10*3/uL (0.0-0.4); EOS % 3.7 % (1.0-4.0); HEMATOCRIT 42.6 % (42.0-52.0); HEMOGLOBIN 14.2 g/dl (14.0-18.0); LYMPH # 2.5 10*3/uL (1.3-4.4); LYMPH % 29.3 % (27.0-41.0); MEAN CELL VOLUME 96.6 fl (80.0-94.0); MEAN CORPUSCULAR HGB 32.2 pg (27.0-31.0); MEAN CORPUSCULAR HGB CONC 33.3 g/dl (33.0-37.0); MEAN PLATELET VOLUME 10.8 fl (9.6-12.3); MONO # 0.6 10*3/uL (0.1-1.0); MONO % 7.4 % (3.0-9.0); NEUT % 57.9 % (47.0-73.0); PLATELET COUNT AUTOMATED 167 10*3/uL (130-400); RED BLOOD COUNT 4.41 10*6/uL (4.50-5.90); RED CELL DISTRI WIDTH 13.9 % (0-14.5); WHITE BLOOD COUNT 8.6 10*3/uL (4.8-10.8)
[2017-03-21 10:53] LABS: ALKALINE PHOSPHATASE 70 U/L (45-117); BILIRUBIN, TOTAL 0.3 mg/dl (0.2-1.0); BUN 9 mg/dl (7-24); C-REACTIVE PROTEIN 1.12 MG/DL (0-0.3); CARBON DIOXIDE 27 mmol/L (21-32); CHLORIDE 106 mmol/L (98-107); EST GLOM FILT AFRICAN AMERICAN > 60 ml/min; GLUCOSE 122 mg/dL (65-99); MAGNESIUM 2.3 mg/dL (1.5-2.1); POTASSIUM 4.1 mmol/L (3.5-5.1); SGOT/AST 23 IU/L (3-35); SGPT/ALT 20 U/L (12-78); SODIUM 137 mmol/L (136-145)
[2017-03-21 10:56] LABS: TROPONIN I < 0.015 ng/ml (<0.045)
[2017-03-21 11:00] VITALS: BP 144/100
[2017-03-21 12:47] VITALS: BP 150/85
[2017-03-21 13:00] VITALS: BP 160/98
[2017-03-21 13:06] LABS: PROTHROMBIN TIME 10.7 SECONDS (9.0-12.4)
[2017-03-21 16:00] VITALS: BP 160/90
[2017-03-21 20:00] VITALS: BP 157/83
[2017-03-22] VITALS: BP 146/57
[2017-03-22 06:32] LABS: BASO # 0.1 10*3/uL (0.0-0.1); BASO % 0.7 % (0.0-1.0); EOS # 0.4 10*3/uL (0.0-0.4); EOS % 4.2 % (1.0-4.0); HEMATOCRIT 41.4 % (42.0-52.0); HEMOGLOBIN 13.3 g/dl (14.0-18.0); IG # 0.1 10*3/uL (0.0-0.1); LYMPH # 3.6 10*3/uL (1.3-4.4); LYMPH % 38.4 % (27.0-41.0); MEAN CELL VOLUME 96.7 fl (80.0-94.0); MEAN CORPUSCULAR HGB 31.1 pg (27.0-31.0); MEAN CORPUSCULAR HGB CONC 32.1 g/dl (33.0-37.0); MEAN PLATELET VOLUME 11.1 fl (9.6-12.3); MONO # 0.7 10*3/uL (0.1-1.0); MONO % 7.6 % (3.0-9.0); NEUT # 4.5 10*3/uL (2.3-7.9); NEUT % 48.6 % (47.0-73.0); PLATELET COUNT AUTOMATED 147 10*3/uL (130-400); RED BLOOD COUNT 4.28 10*6/uL (4.50-5.90); WHITE BLOOD COUNT 9.4 10*3/uL (4.8-10.8)
[2017-03-22 06:47] LABS: ALBUMIN 2.9 gm/dl (3.1-4.5); ALKALINE PHOSPHATASE 72 U/L (45-117); BILIRUBIN, TOTAL 0.2 mg/dl (0.2-1.0); BUN 9 mg/dl (7-24); CARBON DIOXIDE 27 mmol/L (21-32); CHLORIDE 103 mmol/L (98-107); CHOLESTEROL 132 mg/dL (<200); EST GLOM FILT AFRICAN AMERICAN > 60 ml/min; GLUCOSE 114 mg/dL (65-99); HDL CHOLESTEROL 32 mg/dl (40-60); LDL CHOLESTEROL 53 mg/dL (9-159); MAGNESIUM 2.2 mg/dL (1.5-2.1); PHOSPHOROUS 2.9 mg/dL (2.5-4.9); POTASSIUM 3.8 mmol/L (3.5-5.1); SGOT/AST 21 IU/L (3-35); SGPT/ALT 20 U/L (12-78); SODIUM 137 mmol/L (136-145); TOTAL PROTEIN 6.5 gm/dL (6.4-8.2); TRIGLYCERIDES 233 mg/dl (<150); VLDL CHOLESTEROL 47 mg/dL (6-40)
[2017-03-22 07:01] LABS: PROTHROMBIN TIME 10.5 SECONDS (9.0-12.4)
[2017-03-22 08:00] VITALS: BP 148/98
== END 2017-03-22 11:58 | disposition home or self-care (01) | DRG 391 ==
LOC: ED 10:20 → EDHOLD 12:22 → 4E 12:36
PROVIDERS: Family Medicine; Student in an Organized Health Care Education/Training Program
DX: K21.9 Gastro-esophageal reflux disease without esophagitis (principal); J18.9 Pneumonia, unspecified organism; I11.0 Hypertensive heart disease with heart failure; I50.32 Chronic diastolic (congestive) heart failure; I71.2 Thoracic aortic aneurysm, without rupture; E11.65 Type 2 diabetes mellitus with hyperglycemia; R07.89 Other chest pain; E83.41 Hypermagnesemia; E78.5 Hyperlipidemia, unspecified; J44.9 Chronic obstructive pulmonary disease, unspecified; I25.10 Atherosclerotic heart disease of native coronary artery without angina pectoris; F17.210 Nicotine dependence, cigarettes, uncomplicated; G40.909 Epilepsy, unspecified, not intractable, without status epilepticus; Z86.73 Personal history of transient ischemic attack (TIA), and cerebral infarction without residual deficits; Z86.718 Personal history of other venous thrombosis and embolism; I25.2 Old myocardial infarction; Z86.711 Personal history of pulmonary embolism; Z79.4 Long term (current) use of insulin; Z95.5 Presence of coronary angioplasty implant and graft; Z90.49 Acquired absence of other specified parts of digestive tract; Z90.3 Acquired absence of stomach [part of]; Z80.1 Family history of malignant neoplasm of trachea, bronchus and lung; Z80.3 Family history of malignant neoplasm of breast; Z88.6 Allergy status to analgesic agent; Z91.013 Allergy to seafood; Z91.041 Radiographic dye allergy status; Z79.899 Other long term (current) drug therapy

== ENCOUNTER 2017-05-04 11:41 | Inpatient (IN) | payer OTHER ==
[~2017-05-04] VITALS: Ht 177.8 cm; Wt 117.3 kg
--- NOTE | 2017-05-04 12:01 | NUR ---
EKG AT 1143 BY DEJON.
[2017-05-04 12:08] VITALS: BP 124/93
[2017-05-04 12:11] LABS: BASO # 0.1 10*3/uL (0.0-0.1); BASO % 0.6 % (0.0-1.0); EOS # 0.6 10*3/uL (0.0-0.4); EOS % 3.9 % (1.0-4.0); HEMOGLOBIN 13.4 g/dl (14.0-18.0); LYMPH # 3.3 10*3/uL (1.3-4.4); LYMPH % 22.2 % (27.0-41.0); MEAN CELL VOLUME 96.7 fl (80.0-94.0); MEAN CORPUSCULAR HGB 31.6 pg (27.0-31.0); MEAN CORPUSCULAR HGB CONC 32.7 g/dl (33.0-37.0); MEAN PLATELET VOLUME 11.4 fl (9.6-12.3); MONO # 1.1 10*3/uL (0.1-1.0); MONO % 7.2 % (3.0-9.0); NEUT # 9.8 10*3/uL (2.3-7.9); NEUT % 65.2 % (47.0-73.0); NUCLEATED RED BLOOD CELL 0.3 % (0.0-0.0); PLATELET COUNT AUTOMATED 178 10*3/uL (130-400); RED BLOOD COUNT 4.24 10*6/uL (4.50-5.90); RED CELL DISTRI WIDTH 14.3 % (0-14.5)
[2017-05-04 12:23] LABS: ALBUMIN 3.3 gm/dl (3.1-4.5); ALKALINE PHOSPHATASE 78 U/L (45-117); BUN 21 mg/dl (7-24); CHLORIDE 101 mmol/L (98-107); MAGNESIUM 2.1 mg/dL (1.5-2.1); POTASSIUM 3.8 mmol/L (3.5-5.1); SGOT/AST 21 IU/L (3-35); SGPT/ALT 18 U/L (12-78); SODIUM 136 mmol/L (136-145); TOTAL PROTEIN 7.4 gm/dL (6.4-8.2)
[2017-05-04 12:24] LABS: TROPONIN I < 0.015 ng/ml (<0.045)
[2017-05-04 13:41] VITALS: BP 129/81
[2017-05-04 15:45] VITALS: BP 120/83
--- NOTE | 2017-05-04 15:45 | NUR ---
A 62, admitted to 5E, under the services of ROCHELLE Correia DO with a diagnosis of CHEST PAIN. Chief complaint is CHEST PAIN. Patient arrived via CART FROM ER. Monitor applied. Initial assessment completed. Vital signs taken and recorded. ROCHELLE CORREIA DO notified of admission to the unit. Orders received. See assessment for past medical history, medications and allergies. Patient and/or family oriented to unit. [facility] 5TH FLOOR visitation policy reviewed. Clothing/patient valuable form completed. JAZZY MCCULLOUGH
[2017-05-04 15:48] VITALS: BP 120/83
--- NOTE | 2017-05-04 17:14 | NUR ---
UNABLE TO RECONCILE HOME MEDS D/T TO PHARMACY CLOSED AND PT UNABLE TO VERIFY MEDS THAT HE TAKES AT HOME. WILL PASS ON TO NEXT SHIFT OR WAIT UNTIL SON BRINGS A MED LIST.
--- NOTE | 2017-05-04 18:14 | NUR ---
MORPHINE 2MG GIVEN FOR C/O BACK PAIN,03/27.
--- NOTE | 2017-05-04 19:30 | NUR ---
MORPHINE EFFECTIVE FOR BACK PAIN PER PT. RATED "3".
[2017-05-04 20:16] VITALS: BP 147/92
--- NOTE | 2017-05-04 21:37 | NUR ---
PT.C/O BACK PAIN RATED 8/10 NORCO GIVEN SEE MAR. RESTORIL GIVEN PER ORDER FOR INSOMNIA PER PT REQUEST. SEE MAR.
--- NOTE | 2017-05-04 22:30 | NUR ---
SUKUMAR HELPING SLIGHTLY FOR PAIN PER PT.
--- NOTE | 2017-05-04 23:52 | NUR ---
MORPHINE GIVEN PER ORDER FOR BACK AND CHEST PAIN, RATED "7" SEE MAR.
[2017-05-05] VITALS: BP 132/70
--- NOTE | 2017-05-05 00:15 | NUR ---
PER PT. MORPHINE EFFECTIVE FOR PAIN.
--- NOTE | 2017-05-05 04:25 | NUR ---
MORPHINE GIVEN PER ORDER FOR BACK AND CHEST PAIN RATED "7". SEE MAR.
--- NOTE | 2017-05-05 05:25 | NUR ---
PER PT. MORPHINE EFFECTIVE FOR PAIN IN BACK AND CHEST AREA.
[2017-05-05 06:53] LABS: BASO % 0.3 % (0.0-1.0); EOS # 0.2 10*3/uL (0.0-0.4); EOS % 1.5 % (1.0-4.0); HEMATOCRIT 37.8 % (42.0-52.0); HEMOGLOBIN 12.2 g/dl (14.0-18.0); LYMPH # 3.5 10*3/uL (1.3-4.4); LYMPH % 35.2 % (27.0-41.0); MEAN CORPUSCULAR HGB 30.7 pg (27.0-31.0); MEAN CORPUSCULAR HGB CONC 32.3 g/dl (33.0-37.0); MEAN PLATELET VOLUME 11.3 fl (9.6-12.3); MONO # 0.9 10*3/uL (0.1-1.0); MONO % 8.8 % (3.0-9.0); NEUT # 5.3 10*3/uL (2.3-7.9); NEUT % 53.8 % (47.0-73.0); PLATELET COUNT AUTOMATED 169 10*3/uL (130-400); RED BLOOD COUNT 3.98 10*6/uL (4.50-5.90); RED CELL DISTRI WIDTH 13.9 % (0-14.5); WHITE BLOOD COUNT 9.9 10*3/uL (4.8-10.8)
[2017-05-05 07:22] LABS: BUN 20 mg/dl (7-24); CHLORIDE 104 mmol/L (98-107); CREATININE 0.84 mg/dL (0.70-1.30); MAGNESIUM 2.2 mg/dL (1.5-2.1); PHOSPHOROUS 2.3 mg/dL (2.5-4.9); POTASSIUM 3.3 mmol/L (3.5-5.1); SODIUM 138 mmol/L (136-145)
[2017-05-05 07:26] LABS: ACT PARTIAL THROMBO TIME 22.4 SECONDS (20.8-31.5)
[2017-05-05 08:00] VITALS: BP 126/78
[2017-05-05] MEDS ORDERED: LOPRESSOR25 MG PO (08:55)
[2017-05-05] MEDS ORDERED: NEURONTIN600 MG PO (08:57)
[2017-05-05] MEDS ORDERED: PROTONIX40 MG PO (08:58)
--- NOTE | 2017-05-05 09:00 | NUR ---
Public Health Physician in to talk to patient. Patient states lives at home with son . There are few steps in the home. Physician: joseph mcmanus Pharmacy: [facility] Home health services: [facility] Patient's level of ADLs: MINIMAL ASSIST Patient has working utilities: all working DME: cane, home oxygen from [facility], [place], uses a night Follow-up physician's appointment after d/c: will be made by hospitalist nurse director upon discharge Does patient want to access PORTAL?: no Discharge plan discussed with patient, patient lives at home with disabled son, he states he has a daughter in law that moved in to help them he uses a cane for ambulation, has [facility], patient states he will be going back home and wants VNA to continue, conservation planner will contact VNA and inform them when patient is medically stable for discharge. RHONDA MOYA
--- NOTE | 2017-05-05 09:07 | NUR ---
I SPOKE WITH PT AND ALSO CALLED AND SPOKE WITH PHARMACIST AT [facility] AND MED REC IS UP TO DATE.
--- NOTE | 2017-05-05 09:18 | NUR ---
PT MEDICATED WITH MORPHINE 2MG FOR C/O HEADACHE AND CHEST PAIN.
[2017-05-05] MEDS ORDERED: TEMAZEPAM30 MG PO (09:50)
[2017-05-05] MEDS ORDERED: LASIX40 MG PO (09:51)
[2017-05-05] MEDS ORDERED: NORVASC5 MG PO (09:51)
[2017-05-05] MEDS ORDERED: LEXAPRO10 MG PO (09:51)
--- NOTE | 2017-05-05 11:40 | NUR ---
pt stated morphine was effective in easing his pain.
[2017-05-05 12:00] VITALS: BP 110/75
--- NOTE | 2017-05-05 12:25 | NUR ---
PT REQUESTED AND GIVEN NORCO FOR C/O CHEST AND ABD PAIN. PT RATES PAIN 6/10. WILL MONITOR. CALL LIGHT WITHIN REACH
--- NOTE | 2017-05-05 13:49 | NUR ---
PT MEDICATED WITH MORPHINE AND ZOFRAN FOR C/O HEADACHE AND NAUSEA.
[2017-05-05 16:00] VITALS: BP 142/94
--- NOTE | 2017-05-05 16:20 | NUR ---
PT INSISTING ON GOING HOME BY AMBULANCE STATING THAT "I ALWAYS GO HOME BY AMBULANCE" WHEN I STATED THAT THE AMBULANCE ARE STATING HIS INSURANCE MAY NOT PAY FOR IT AND HE WILL BE BILLED HE STATED " THAT IS OK I WILL JUST SENT THE BILL TO MY INSURANCE COMPANY MYSELF".
--- NOTE | 2017-05-05 16:50 | NUR ---
Discharge instructions reviewed with patient/family. Patient receptive and verbalizes understanding. Follow-up care arranged. Written instructions given to patient/family. SOHAIL CHIN
--- NOTE | 2017-05-05 18:27 | NUR ---
[facility] TO TRANSPORT PT TO HOME AT HIS REQUEST.
--- NOTE | 2017-05-06 07:25 | NUR ---
Patient discharged to home to [facility] visiting nurses. Received [facility] order, faxed clinicals.
--- NOTE | 2017-05-06 14:18 | NUR ---
[facility] visiting nurses called back to say they will no longer accept this patient for their services, did not give reason. Received new order for home health, contacted [facility] who does not accept patients insurance. Contacted [facility] who does accept [employer] insurance and faxed referral for review.
--- NOTE | 2017-05-06 14:51 | NUR ---
[facility] health called back and stated they will not accept this patient, they just discharged him a short time ago due to non compliance.
--- NOTE | 2017-05-06 14:59 | NUR ---
Contacted [facility] for referral, they accept patients insurance and will review referral.
== END 2017-05-05 18:27 | disposition home health service (06) | DRG 313 ==
LOC: ED 11:41 → 5E 15:04
PROVIDERS: Family Medicine Adult Medicine; Internal Medicine Nephrology; ADMIT Internal Medicine
DX: R07.89 Other chest pain (principal); I25.2 Old myocardial infarction; I50.32 Chronic diastolic (congestive) heart failure; I11.0 Hypertensive heart disease with heart failure; Z99.81 Dependence on supplemental oxygen; E11.65 Type 2 diabetes mellitus with hyperglycemia; R00.1 Bradycardia, unspecified; D72.829 Elevated white blood cell count, unspecified; D72.810 Lymphocytopenia; D72.821 Monocytosis (symptomatic); D53.9 Nutritional anemia, unspecified; E66.01 Morbid (severe) obesity due to excess calories; E03.9 Hypothyroidism, unspecified; I25.119 Atherosclerotic heart disease of native coronary artery with unspecified angina pectoris; G40.909 Epilepsy, unspecified, not intractable, without status epilepticus; E78.5 Hyperlipidemia, unspecified; J44.9 Chronic obstructive pulmonary disease, unspecified; F17.210 Nicotine dependence, cigarettes, uncomplicated; G43.909 Migraine, unspecified, not intractable, without status migrainosus; E87.6 Hypokalemia; E83.39 Other disorders of phosphorus metabolism; E83.41 Hypermagnesemia; I65.23 Occlusion and stenosis of bilateral carotid arteries; Z88.6 Allergy status to analgesic agent; I34.0 Nonrheumatic mitral (valve) insufficiency; Z91.013 Allergy to seafood; Z91.041 Radiographic dye allergy status; Z79.84 Long term (current) use of oral hypoglycemic drugs; Z79.899 Other long term (current) drug therapy; Z79.4 Long term (current) use of insulin; Z86.73 Personal history of transient ischemic attack (TIA), and cerebral infarction without residual deficits; Z86.718 Personal history of other venous thrombosis and embolism; Z86.711 Personal history of pulmonary embolism; Z90.49 Acquired absence of other specified parts of digestive tract; Z95.5 Presence of coronary angioplasty implant and graft; Z80.1 Family history of malignant neoplasm of trachea, bronchus and lung; Z80.3 Family history of malignant neoplasm of breast

== ENCOUNTER 2017-05-09 19:32 | Emergency (ER) | payer OTHER ==
[~2017-05-09] VITALS: Ht 175.2 cm; Wt 95.3 kg
--- NOTE | ~2017-05-09 | EKG ---
[place], [place] ELECTROCARDIOGRAM REPORT NAME: HIMA PARNELL UNIT #: [id number] ROOM: DOCTOR: TATIANA GAMBINO,ROXANNE BIRTHDATE: [birth year] DOS: 05/09/2017 TIME: 1940 hours. IMPRESSION: 1. Sinus rhythm, sinus tachycardia. 2. Nonspecific ST-T changes. 3. Baseline artifacts. ROXANNE SIMPSON MD CM:EKGRPT:ELECTROCARDIOGRAM REPORT [id number] ROXANNE SIMPSON MD
[~2017-05-09 19:32] MED LIST changes: +LEXAPRO10 MG PO; +LOPRESSOR25 MG PO; +NEURONTIN600 MG PO; +NORVASC5 MG PO; +PROTONIX40 MG PO; +TEMAZEPAM30 MG PO
[2017-05-09 20:18] LABS: BASO # 0.1 10*3/uL (0.0-0.1); BASO % 0.5 % (0.0-1.0); EOS # 0.3 10*3/uL (0.0-0.4); EOS % 2.6 % (1.0-4.0); HEMATOCRIT 44.5 % (42.0-52.0); HEMOGLOBIN 14.4 g/dl (14.0-18.0); LYMPH # 3.4 10*3/uL (1.3-4.4); LYMPH % 29.4 % (27.0-41.0); MEAN CELL VOLUME 95.3 fl (80.0-94.0); MEAN CORPUSCULAR HGB 30.8 pg (27.0-31.0); MEAN CORPUSCULAR HGB CONC 32.4 g/dl (33.0-37.0); MEAN PLATELET VOLUME 10.8 fl (9.6-12.3); MONO # 0.9 10*3/uL (0.1-1.0); MONO % 8.1 % (3.0-9.0); NEUT # 6.9 10*3/uL (2.3-7.9); PLATELET COUNT AUTOMATED 211 10*3/uL (130-400); RED BLOOD COUNT 4.67 10*6/uL (4.50-5.90); RED CELL DISTRI WIDTH 14.4 % (0-14.5); WHITE BLOOD COUNT 11.6 10*3/uL (4.8-10.8)
[2017-05-09 20:27] LABS: ACT PARTIAL THROMBO TIME 22.9 SECONDS (20.8-31.5)
[2017-05-09 20:36] LABS: ALBUMIN 3.5 gm/dl (3.1-4.5); ALKALINE PHOSPHATASE 80 U/L (45-117); BUN 18 mg/dl (7-24); CHLORIDE 105 mmol/L (98-107); MAGNESIUM 2.2 mg/dL (1.5-2.1); POTASSIUM 3.6 mmol/L (3.5-5.1); SGOT/AST 17 IU/L (3-35); SGPT/ALT 18 U/L (12-78); SODIUM 136 mmol/L (136-145)
[2017-05-09 20:41] LABS: TROPONIN I < 0.015 ng/ml (<0.045)
[2017-05-09 23:00] LABS: CKMB 1.1 ng/ml (0.5-3.6); CPK 91 U/L (39-308)
[2017-05-09 23:02] LABS: TROPONIN I < 0.015 ng/ml (<0.045)
== END 2017-05-10 00:55 | disposition home or self-care (01) ==
LOC: ED 19:32
PROVIDERS: Nurse Practitioner Family; Student in an Organized Health Care Education/Training Program
DX: R07.89 Other chest pain (principal); R11.10 Vomiting, unspecified; K21.9 Gastro-esophageal reflux disease without esophagitis; I25.10 Atherosclerotic heart disease of native coronary artery without angina pectoris; E78.5 Hyperlipidemia, unspecified; E03.9 Hypothyroidism, unspecified; E11.65 Type 2 diabetes mellitus with hyperglycemia; I11.0 Hypertensive heart disease with heart failure; I50.32 Chronic diastolic (congestive) heart failure; G40.909 Epilepsy, unspecified, not intractable, without status epilepticus; F17.200 Nicotine dependence, unspecified, uncomplicated; Z91.041 Radiographic dye allergy status; Z79.4 Long term (current) use of insulin; Z86.718 Personal history of other venous thrombosis and embolism; Z86.73 Personal history of transient ischemic attack (TIA), and cerebral infarction without residual deficits; Z88.6 Allergy status to analgesic agent; Z91.013 Allergy to seafood; Z79.899 Other long term (current) drug therapy

== ENCOUNTER 2017-05-16 20:31 | Emergency (ER) | payer OTHER ==
[~2017-05-16] VITALS: Ht 185.4 cm; Wt 113.4 kg
[2017-05-16 20:53] LABS: BASO # 0.1 10*3/uL (0.0-0.1); BASO % 0.4 % (0.0-1.0); EOS # 0.6 10*3/uL (0.0-0.4); EOS % 5.7 % (1.0-4.0); HEMATOCRIT 43.3 % (42.0-52.0); HEMOGLOBIN 14.1 g/dl (14.0-18.0); LYMPH % 36.1 % (27.0-41.0); MEAN CELL VOLUME 93.9 fl (80.0-94.0); MEAN CORPUSCULAR HGB 30.6 pg (27.0-31.0); MEAN CORPUSCULAR HGB CONC 32.6 g/dl (33.0-37.0); MEAN PLATELET VOLUME 11.4 fl (9.6-12.3); MONO % 8.9 % (3.0-9.0); NEUT # 5.4 10*3/uL (2.3-7.9); NEUT % 48.4 % (47.0-73.0); PLATELET COUNT AUTOMATED 221 10*3/uL (130-400); RED BLOOD COUNT 4.61 10*6/uL (4.50-5.90); RED CELL DISTRI WIDTH 14.2 % (0-14.5); WHITE BLOOD COUNT 11.2 10*3/uL (4.8-10.8)
[2017-05-16 21:10] LABS: ALBUMIN 3.3 gm/dl (3.1-4.5); ALKALINE PHOSPHATASE 71 U/L (45-117); BUN 14 mg/dl (7-24); CHLORIDE 100 mmol/L (98-107); CREATININE 1.07 mg/dL (0.70-1.30); MAGNESIUM 2.2 mg/dL (1.5-2.1); POTASSIUM 3.5 mmol/L (3.5-5.1); SGOT/AST 16 IU/L (3-35); SGPT/ALT 22 U/L (12-78); SODIUM 137 mmol/L (136-145); TOTAL PROTEIN 7.3 gm/dL (6.4-8.2)
== END 2017-05-16 22:04 | disposition home or self-care (01) ==
LOC: ED 20:31
PROVIDERS: Emergency Medicine
DX: S09.90XA Unspecified injury of head, initial encounter (principal); G43.909 Migraine, unspecified, not intractable, without status migrainosus; R56.9 Unspecified convulsions; I25.10 Atherosclerotic heart disease of native coronary artery without angina pectoris; I11.0 Hypertensive heart disease with heart failure; I50.32 Chronic diastolic (congestive) heart failure; J44.9 Chronic obstructive pulmonary disease, unspecified; K21.9 Gastro-esophageal reflux disease without esophagitis; I25.2 Old myocardial infarction; E78.5 Hyperlipidemia, unspecified; E03.9 Hypothyroidism, unspecified; E11.9 Type 2 diabetes mellitus without complications; G40.909 Epilepsy, unspecified, not intractable, without status epilepticus; F17.210 Nicotine dependence, cigarettes, uncomplicated; Z86.73 Personal history of transient ischemic attack (TIA), and cerebral infarction without residual deficits; Z86.718 Personal history of other venous thrombosis and embolism; Z91.041 Radiographic dye allergy status; Z88.6 Allergy status to analgesic agent; Z79.4 Long term (current) use of insulin; Z91.030 Bee allergy status; Z79.899 Other long term (current) drug therapy; W07.XXXA Fall from chair, initial encounter; Y93.89 Activity, other specified; Y92.10 Unspecified residential institution as the place of occurrence of the external cause; Y99.8 Other external cause status

== ENCOUNTER 2017-05-21 17:29 | Emergency (ER) | payer OTHER ==
[~2017-05-21] VITALS: Ht 177.8 cm; Wt 104.3 kg
[2017-05-21 18:13] LABS: BASO # 0.1 10*3/uL (0.0-0.1); BASO % 0.8 % (0.0-1.0); EOS # 0.4 10*3/uL (0.0-0.4); EOS % 4.3 % (1.0-4.0); LYMPH # 3.8 10*3/uL (1.3-4.4); LYMPH % 38.6 % (27.0-41.0); MEAN CORPUSCULAR HGB 31.3 pg (27.0-31.0); MEAN CORPUSCULAR HGB CONC 32.6 g/dl (33.0-37.0); MEAN PLATELET VOLUME 11.4 fl (9.6-12.3); MONO # 1.1 10*3/uL (0.1-1.0); MONO % 10.9 % (3.0-9.0); NEUT # 4.5 10*3/uL (2.3-7.9); NEUT % 45.1 % (47.0-73.0); PLATELET COUNT AUTOMATED 183 10*3/uL (130-400); RED BLOOD COUNT 4.48 10*6/uL (4.50-5.90); WHITE BLOOD COUNT 9.9 10*3/uL (4.8-10.8)
[2017-05-21 18:23] LABS: ACT PARTIAL THROMBO TIME 22.4 SECONDS (20.8-31.5)
[2017-05-21 18:30] LABS: ALBUMIN 3.5 gm/dl (3.1-4.5); ALKALINE PHOSPHATASE 73 U/L (45-117); BUN 14 mg/dl (7-24); CHLORIDE 101 mmol/L (98-107); CPK 77 U/L (39-308); CREATININE 1.08 mg/dL (0.70-1.30); POTASSIUM 3.9 mmol/L (3.5-5.1); SGOT/AST 21 IU/L (3-35); SGPT/ALT 22 U/L (12-78); SODIUM 135 mmol/L (136-145); TOTAL PROTEIN 7.3 gm/dL (6.4-8.2)
[2017-05-21 18:31] LABS: CKMB 1.1 ng/ml (0.5-3.6)
[2017-05-21 18:36] LABS: TROPONIN I < 0.015 ng/ml (<0.045)
[2017-05-21] MEDS ORDERED: Fioricet 325 MG1 TAB PO (23:22)
== END 2017-05-22 00:05 | disposition other institution (70) ==
LOC: ED 17:29
PROVIDERS: Physician Assistant
DX: G43.909 Migraine, unspecified, not intractable, without status migrainosus (principal); F17.200 Nicotine dependence, unspecified, uncomplicated; Z98.890 Other specified postprocedural states; Z90.89 Acquired absence of other organs; Z79.899 Other long term (current) drug therapy; Z91.041 Radiographic dye allergy status; Z88.6 Allergy status to analgesic agent; Z91.013 Allergy to seafood; Z86.73 Personal history of transient ischemic attack (TIA), and cerebral infarction without residual deficits

== ENCOUNTER 2017-06-11 18:36 | Emergency (ER) | payer OTHER ==
[~2017-06-11] VITALS: Ht 177.8 cm; Wt 108.4 kg
[~2017-06-11 18:36] MED LIST changes: +Fioricet 325 MG1 TAB PO
[2017-06-11 19:19] LABS: BASO # 0.1 10*3/uL (0.0-0.1); BASO % 0.7 % (0.0-1.0); EOS # 0.4 10*3/uL (0.0-0.4); EOS % 3.9 % (1.0-4.0); HEMATOCRIT 39.9 % (42.0-52.0); HEMOGLOBIN 13.2 g/dl (14.0-18.0); LYMPH # 3.8 10*3/uL (1.3-4.4); LYMPH % 36.5 % (27.0-41.0); MEAN CELL VOLUME 94.3 fl (80.0-94.0); MEAN CORPUSCULAR HGB 31.2 pg (27.0-31.0); MEAN CORPUSCULAR HGB CONC 33.1 g/dl (33.0-37.0); MEAN PLATELET VOLUME 10.9 fl (9.6-12.3); MONO # 0.9 10*3/uL (0.1-1.0); MONO % 8.3 % (3.0-9.0); NEUT # 5.2 10*3/uL (2.3-7.9); NEUT % 50.3 % (47.0-73.0); PLATELET COUNT AUTOMATED 199 10*3/uL (130-400); RED BLOOD COUNT 4.23 10*6/uL (4.50-5.90); RED CELL DISTRI WIDTH 13.5 % (0-14.5); WHITE BLOOD COUNT 10.4 10*3/uL (4.8-10.8)
[2017-06-11 19:29] LABS: ACT PARTIAL THROMBO TIME 23.4 SECONDS (20.8-31.5)
[2017-06-11 19:40] LABS: ALBUMIN 3.3 gm/dl (3.1-4.5); ALKALINE PHOSPHATASE 80 U/L (45-117); BUN 10 mg/dl (7-24); CHLORIDE 104 mmol/L (98-107); CREATININE 1.05 mg/dL (0.70-1.30); MAGNESIUM 2.1 mg/dL (1.5-2.1); POTASSIUM 3.5 mmol/L (3.5-5.1); SGOT/AST 15 IU/L (3-35); SGPT/ALT 17 U/L (12-78); SODIUM 139 mmol/L (136-145); TOTAL PROTEIN 7.3 gm/dL (6.4-8.2)
[2017-06-11 19:51] LABS: TROPONIN I < 0.015 ng/ml (<0.045)
== END 2017-06-11 20:44 | disposition home or self-care (01) ==
LOC: ED 18:36
PROVIDERS: Emergency Medicine
DX: R07.89 Other chest pain (principal); I25.10 Atherosclerotic heart disease of native coronary artery without angina pectoris; I50.32 Chronic diastolic (congestive) heart failure; G43.909 Migraine, unspecified, not intractable, without status migrainosus; G40.909 Epilepsy, unspecified, not intractable, without status epilepticus; E11.9 Type 2 diabetes mellitus without complications; F17.200 Nicotine dependence, unspecified, uncomplicated; Z88.6 Allergy status to analgesic agent; Z90.49 Acquired absence of other specified parts of digestive tract; Z91.041 Radiographic dye allergy status; Z91.013 Allergy to seafood; Z79.899 Other long term (current) drug therapy; Z79.4 Long term (current) use of insulin

== ENCOUNTER 2017-06-23 13:03 | Inpatient (IN) | payer OTHER ==
[~2017-06-23] VITALS: Ht 177.8 cm; Wt 115.9 kg
[2017-06-23 13:15] VITALS: BP 150/77
--- NOTE | 2017-06-23 14:39 | NUR ---
PT MEDICATED WITH DILAUDID 0.5 MG PER MD ORDER FOR C/O RT HIP PAIN.PULSE OX 97-98% PRIOR TO DILAUDID. PT'S PANTS REMOVED FOR XRAY AND HE WILL BE TAKEN TO XRAY IN A FEW MINUTES---ESVIN PAZ RN
[2017-06-23 14:40] LABS: BASO # 0.1 10*3/uL (0.0-0.1); BASO % 0.8 % (0.0-1.0); EOS # 0.2 10*3/uL (0.0-0.4); EOS % 2.4 % (1.0-4.0); HEMATOCRIT 39.9 % (42.0-52.0); HEMOGLOBIN 13.3 g/dl (14.0-18.0); LYMPH % 30.7 % (27.0-41.0); MEAN CELL VOLUME 93.9 fl (80.0-94.0); MEAN CORPUSCULAR HGB 31.3 pg (27.0-31.0); MEAN CORPUSCULAR HGB CONC 33.3 g/dl (33.0-37.0); MEAN PLATELET VOLUME 10.9 fl (9.6-12.3); MONO # 0.8 10*3/uL (0.1-1.0); MONO % 8.3 % (3.0-9.0); NEUT # 5.5 10*3/uL (2.3-7.9); NEUT % 57.4 % (47.0-73.0); PLATELET COUNT AUTOMATED 222 10*3/uL (130-400); RED BLOOD COUNT 4.25 10*6/uL (4.50-5.90); RED CELL DISTRI WIDTH 13.5 % (0-14.5); WHITE BLOOD COUNT 9.7 10*3/uL (4.8-10.8)
[2017-06-23 14:49] LABS: ACT PARTIAL THROMBO TIME 24.7 SECONDS (20.8-31.5); INTERNATIONAL NORM RATIO 1.1 (2.0-3.5)
[2017-06-23 15:03] LABS: ALBUMIN 3.3 gm/dl (3.1-4.5); ALKALINE PHOSPHATASE 61 U/L (45-117); BUN 12 mg/dl (7-24); CHLORIDE 103 mmol/L (98-107); CREATININE 0.78 mg/dL (0.70-1.30); POTASSIUM 3.7 mmol/L (3.5-5.1); SGOT/AST 135 IU/L (3-35); SGPT/ALT 74 U/L (12-78); SODIUM 136 mmol/L (136-145); TOTAL PROTEIN 6.9 gm/dL (6.4-8.2)
[2017-06-23 15:06] LABS: TROPONIN I < 0.015 ng/ml (<0.045)
[2017-06-23 15:51] VITALS: BP 160/90
--- NOTE | 2017-06-23 15:52 | NUR ---
PT HAS A SMALL AMOUNT OF RELIEF IN RIGHT HIP PAIN AFTER DILAUDID. REMAINS ALERT. SARA ASHFORD
[2017-06-23 16:45] VITALS: BP 160/88
--- NOTE | 2017-06-23 17:13 | NUR ---
SPOKE TO PHARMACIST STAR AT [facility]. WAITING ON LIST OF HOME MEDS TO BE FAXED.
--- NOTE | 2017-06-23 17:15 | NUR ---
A 62, admitted to 5E, under the services of LINDSEY Mccurdy DO with a diagnosis of CHEST PAIN, RIGHT HIP PAIN. Chief complaint is PAIN. Patient arrived via bed from ER. Monitor applied. Initial assessment completed. Vital signs taken and recorded. LINDSEY MCCURDY DO notified of admission to the unit. Orders received. See assessment for past medical history, medications and allergies. Patient and/or family oriented to unit. [facility] visitation policy reviewed. Clothing/patient valuable form completed. ASSESSMENT COMPLETE. SKIN INTACT. FLU AND PNEUMONIA VACCINATIONS CURRENT. WILL UPDATE HOME MED LIST. FREDY JOSEPH
[2017-06-23 17:19] VITALS: BP 121/73
--- NOTE | 2017-06-23 18:28 | NUR ---
CALLED DR JENKINS [facility] SERVICE REGARDING NEW PT CONSULT. WAITING CARD HANGER BACK.
--- NOTE | 2017-06-23 18:35 | NUR ---
DR PARNELL CALLED REGARDING PT CONSULT. HE WILL SEE PT TOMORROW MORNING. NO NEW ORDERS
[2017-06-23] MEDS ORDERED: METOPROLOL SUCC50 M1 PO (19:38)
--- NOTE | 2017-06-23 19:41 | NUR ---
24 HR chart check completed.
[2017-06-23] MEDS ORDERED: NORCO 5-325 TA1 EACH PO (19:45)
--- NOTE | 2017-06-23 19:54 | NUR ---
PTS HOME MEDICATIONS VERIFIED VIA LIST SENT FROM [facility]. DR KAUR NOTIFIED
[2017-06-23 20:00] VITALS: BP 140/100
--- NOTE | 2017-06-23 21:26 | NUR ---
SCHEDULED RESTORIL GIVEN.
--- NOTE | 2017-06-23 22:20 | NUR ---
PATIENT ASLEEP. RESTORIL EFFECTIVE.
[2017-06-24] VITALS: BP 135/81
--- NOTE | 2017-06-24 00:57 | NUR ---
C/O 01/25 RT HIP PAIN. MEDICATED WITH PRN NORCO ORDERED AND PER PATIENT REQUEST.
--- NOTE | 2017-06-24 01:57 | NUR ---
PATIENT ASLEEP. NO SIGNS OF PAIN. NORCO EFFECTIVE.
[2017-06-24 06:41] LABS: BASO # 0.1 10*3/uL (0.0-0.1); BASO % 0.8 % (0.0-1.0); EOS # 0.6 10*3/uL (0.0-0.4); EOS % 6.1 % (1.0-4.0); HEMATOCRIT 40.9 % (42.0-52.0); HEMOGLOBIN 13.6 g/dl (14.0-18.0); LYMPH # 2.8 10*3/uL (1.3-4.4); LYMPH % 28.3 % (27.0-41.0); MEAN CORPUSCULAR HGB 31.3 pg (27.0-31.0); MEAN CORPUSCULAR HGB CONC 33.3 g/dl (33.0-37.0); MEAN PLATELET VOLUME 11.3 fl (9.6-12.3); MONO # 0.7 10*3/uL (0.1-1.0); MONO % 7.2 % (3.0-9.0); NEUT # 5.7 10*3/uL (2.3-7.9); NEUT % 57.2 % (47.0-73.0); PLATELET COUNT AUTOMATED 232 10*3/uL (130-400); RED BLOOD COUNT 4.35 10*6/uL (4.50-5.90); RED CELL DISTRI WIDTH 13.7 % (0-14.5)
[2017-06-24 07:05] LABS: ALBUMIN 3.4 gm/dl (3.1-4.5); ALKALINE PHOSPHATASE 60 U/L (45-117); BUN 11 mg/dl (7-24); CHLORIDE 102 mmol/L (98-107); CREATININE 0.81 mg/dL (0.70-1.30); PHOSPHOROUS 3.6 mg/dL (2.5-4.9); POTASSIUM 3.9 mmol/L (3.5-5.1); SGOT/AST 74 IU/L (3-35); SGPT/ALT 76 U/L (12-78); SODIUM 136 mmol/L (136-145); TOTAL PROTEIN 6.9 gm/dL (6.4-8.2)
[2017-06-24 07:28] LABS: VITAMIN D, 25-HYDROXY 27.9 ng/mL (30-100)
--- NOTE | 2017-06-24 07:37 | NUR ---
C/O 10/10 PAIN TO RIGHT HIP. MEDICATED WITH PRN NORCO ORDERED AND PER PATIENT REQUEST. WILL MONITOR FOR EFFECTIVESS.
[2017-06-24 08:00] VITALS: BP 152/90
--- NOTE | 2017-06-24 08:00 | NUR ---
PT AWAKE. ASSESSMENT COMPLETE. PT STATES PRIOR MEDICATION EFFECTIVE IN RELIEVING RIGHT HIP PAIN. BED LOW. CALL RIVERA IN REACH.
--- NOTE | 2017-06-24 09:00 | NUR ---
Carpet Layer in to talk to patient. Patient states lives at home with disabled son. There are few steps in the home. Physician: heri Pharmacy: [facility] Home health services: [facility] Patient's level of ADLs: MINIMAL ASSIST Patient has working utilities: all working DME: home oxygen, from [employer], cane Follow-up physician's appointment after d/c: will be made by hospitalist nurse director upon discharge Does patient want to access PORTAL?: no Discharge plan discussed with patient, patient lives at home with a disabled son, he stated he uses a cane for ambulation, has home oxygen he uses a night, discussed with patient a discharge plan including a short term jail for rehab and patient was undecided at this time. stated wanted to wait and see what the doctors report was, case management will talk with patient again in am. RHONDA MOYA
--- NOTE | 2017-06-24 09:50 | NUR ---
ASSISTING PT TO BATHROOM AND HE BEGAN TO CRY IN PAIN IN HIS RIGHT HIP. ADMINISTERED IV DILAUDID PER PT REQUEST FOR RIGHT HIP PAIN RATED 9/10. WILL MONITOR FOR EFFECTIVENESS. BED LOW. CALL RIVERA IN REACH
--- NOTE | 2017-06-24 10:40 | NUR ---
MEDICATION EFFECTIVE. PT SLEEPING. RESPS REG EASY WITH NO DISTRESS NOTED.
[2017-06-24 12:00] VITALS: BP 123/85
--- NOTE | 2017-06-24 12:50 | NUR ---
PT UP WITH PT. COULD NOT TOLERATE AMBULATION. ADMINISTERED PO NORCO PER REQUEST FOR RIGHT HIP PAIN RATED 9/10. BED LOW. CALL RIVERA IN REACH
--- NOTE | 2017-06-24 13:19 | NUR ---
SPOKE TO DR MACK OFFICE AND LEFT CONSULT INFORMATION. WAITING [employer] OPERATOR BACK
--- NOTE | 2017-06-24 13:30 | NUR ---
PHYSICAL THERAPY PAtient evaluated on 5, full evaluation to follow. Continue with PT as per plan of care with fall, left newer hemiparesis, recent fall at home with significant right hip pain and acute debility precautions. Will require SNF for impaired mobility. PAtient with episode with PT with severe pain after ambulationg 8 feet with walke/ min (A): patient with need for immediate sit, patient kept attempting to sit on floor: PT asked nursing staff for help- max (A) x 2 for patient into wheelchair and returned to bed, patient upright the entire episode. Nurse aware and present. Dr Browning educated and possible consult for Dr. Lester due to severe pian complaints and episode noted above. Thank you for this referral. Michelle Mariano,PT PAtient high complexity via chart review, tests and evalatuion: 43774. Will require SNF for impaired mobility as paotient is home alone and cares for handicapped son. Thank you for this referral. Michelle Mckeon,PT
[2017-06-24 16:00] VITALS: BP 161/80
[2017-06-24 17:39] VITALS: BP 134/80
[2017-06-24 20:00] VITALS: BP 96/66
--- NOTE | 2017-06-24 20:43 | NUR ---
PATIENT MEDICATED WITH NORCO FOR COMPLAINTS OF RIGHT HIP PAIN. PATIENT STATES PAIN IS A 7/10. WILL MONITOR FOR EFFECTIVENESS. CALL LIGHT IN REACH.
--- NOTE | 2017-06-24 22:00 | NUR ---
NORCO EFFECTIVE AT THIS TIME. PATIENT STATES HIP FEELS BETTER THAN IT DID. WILL CONTINUE TO MONITOR. CALL LIGHT IN REACH.
[2017-06-25] VITALS: BP 142/82
--- NOTE | 2017-06-25 00:19 | NUR ---
PATIENT MEDICATED WITH NORCO FOR COMPLAINTS OF RIGHT HIP PAIN. WILL MONITOR FOR EFFECTIVENESS OF MEDICATION. CALL LIGHT IN REACH.
--- NOTE | 2017-06-25 00:54 | NUR ---
NORCO EFFECTIVE AT THIS TIME. PATIENT RESTING IN BED WITH EYES CLOSED. NO SIGNS OR SYMPTOMS OF DISTRESS NOTED. AROUSES TO VERBAL STIMULI. WILL CONTINUE TO MONITOR. CALL LIGHT IN REACH.
--- NOTE | 2017-06-25 02:15 | NUR ---
MEDICATED WITH DILAUDID FOR RIGHT HIP PAIN. WILL MONITOR FOR EFFECTIVENESS. CALL LIGHT IN REACH.
--- NOTE | 2017-06-25 02:58 | NUR ---
PRN DILAUDID EFFECTIVE AT THIS TIME. NO SIGNS OR SYMPTOMS OF DISTRESS NOTED. PATIENT RESTING IN BED WITH EYES CLOSED. WILL CONTINUE TO MONITOR. CALL LIGHT IN REACH.
[2017-06-25 07:21] LABS: BASO # 0.1 10*3/uL (0.0-0.1); BASO % 0.7 % (0.0-1.0); EOS # 0.7 10*3/uL (0.0-0.4); EOS % 5.5 % (1.0-4.0); HEMATOCRIT 41.1 % (42.0-52.0); HEMOGLOBIN 13.4 g/dl (14.0-18.0); LYMPH # 4.1 10*3/uL (1.3-4.4); LYMPH % 34.4 % (27.0-41.0); MEAN CELL VOLUME 94.5 fl (80.0-94.0); MEAN CORPUSCULAR HGB 30.8 pg (27.0-31.0); MEAN CORPUSCULAR HGB CONC 32.6 g/dl (33.0-37.0); MEAN PLATELET VOLUME 11.1 fl (9.6-12.3); MONO # 1.2 10*3/uL (0.1-1.0); MONO % 9.8 % (3.0-9.0); NEUT # 5.8 10*3/uL (2.3-7.9); NEUT % 48.9 % (47.0-73.0); PLATELET COUNT AUTOMATED 228 10*3/uL (130-400); RED BLOOD COUNT 4.35 10*6/uL (4.50-5.90); RED CELL DISTRI WIDTH 13.9 % (0-14.5); WHITE BLOOD COUNT 11.9 10*3/uL (4.8-10.8)
[2017-06-25 07:51] LABS: ALBUMIN 3.1 gm/dl (3.1-4.5); BUN 18 mg/dl (7-24); CHLORIDE 99 mmol/L (98-107); CREATININE 0.97 mg/dL (0.70-1.30); POTASSIUM 3.9 mmol/L (3.5-5.1); SGOT/AST 45 IU/L (3-35); SGPT/ALT 69 U/L (12-78); SODIUM 134 mmol/L (136-145); TOTAL PROTEIN 6.8 gm/dL (6.4-8.2)
[2017-06-25 07:52] LABS: ALKALINE PHOSPHATASE 58 U/L (45-117)
[2017-06-25 08:00] VITALS: BP 108/57
--- NOTE | 2017-06-25 09:00 | NUR ---
case management visits with patient, discussed with patient a short term alf, he was agreeable to this, [facility] he [facility] be in rooms 1-8 on the ortho wing, if not he wanted to go to any place in [place], workforce planner will make referral, case management will follow
--- NOTE | 2017-06-25 09:34 | NUR ---
Occupational Therapy evaluation completed this date on 5 with full eval to follow. Precautions include fall risk, bed alarm, seizure precautions, right hip pain, left hemiparesis, moderate complexity level 28905. Recommend OT per POC and SNF upon d/c to enable safe return home at [facility]. Thank you for this referral. Kellie Vogel OTR/l
--- NOTE | 2017-06-25 10:22 | NUR ---
DILAUDID 0.5MG GIVEN FOR C/O GENERALIZED HIP PAIN, 05/27.
--- NOTE | 2017-06-25 10:45 | NUR ---
Patient stated he would like to go to snf, he wants to go to [facility] only if he can have a room on the ortho bo in rooms 1 through 8, otherwise he will go to [facility] in [place]. Contacted Elsie at [facility], she doesn't have any available beds in the ortho wing at this time. Will contact Leticia and fax referral to [facility].
--- NOTE | 2017-06-25 10:51 | NUR ---
Referral faxed to [place], waiting on acceptance, will require precert.
--- NOTE | 2017-06-25 11:25 | NUR ---
PHYSICAL THERAPY Darryn supine in bed before his therapy session. Checked for Pt having any fracture and no fractuer reported. Transfer supine/sit MIN A X 1, sitting balance CGA X 1, X 6 min sitting. Sit/stand and standing balance with standard walker MOD A X 1. Then gait 16', X 1, MOD IN FLIGHT REFUELING MANAGER X 1, verbal cueing for gait, walker, balance safety to Pt's bedside chair and sit. Pt with call light and phone. Report no displaced fracture. MANJULA PEACOCK SLIME PLANT OPERATOR HELPER.
[2017-06-25 12:00] VITALS: BP 105/63
--- NOTE | 2017-06-25 13:57 | NUR ---
NORCO 5/325 MG GIVEN FOR C/O HIP PAIN,04/27.
--- NOTE | 2017-06-25 15:08 | NUR ---
Patient has been accepted to [facility] building 3. Nurse to Nurse call [phone]. Precert will be started today, waiting on auth.
[2017-06-25 16:00] VITALS: BP 120/74
[2017-06-25 20:00] VITALS: BP 100/57
--- NOTE | 2017-06-25 20:25 | NUR ---
PATIENT MEDICATED WITH NORCO FOR COMPLAINTS OF RIGHT HIP PAIN. WILL MONITOR FOR EFFECTIVENESS. CALL LIGHT IN REACH.
--- NOTE | 2017-06-25 22:18 | NUR ---
PATIENT STATED NORCO WAS BARELY EFFECTIVE.
--- NOTE | 2017-06-25 22:40 | NUR ---
PATIENT MEDICATED WITH DILAUDID 0.5MG FOR COMPLAINTS OF RIGHT HIP PAIN. WILL MONITOR FOR EFFECTIVENESS.
--- NOTE | 2017-06-25 23:30 | NUR ---
DILAUDID EFFECTIVE AT THIS TIME. RESTING IN BED WITH EYES CLOSED. AROUSES TO VERBAL STIMULI. NO SIGNS OR SYMPTOMS OF DISTRESS NOTED. CALL LIGHT IN REACH.
[2017-06-26] VITALS: BP 100/61
--- NOTE | 2017-06-26 03:06 | NUR ---
PATIENT MEDICATED WITH NORCO FOR COMPLAINTS OF RIGHT HIP PAIN. WILL CONTINUE TO MONITOR. CALL LIGHT IN REACH.
--- NOTE | 2017-06-26 04:41 | NUR ---
OMARCO EFFECTIVE. PATIENT RESTING IN BED WITH EYES CLOSED. NO SIGNS OR SYMPTOMS OF DISTRESS NOTED. AROUSES TO VERBAL STIMULI. WILL CONTINUE TO MONITOR. CALL LIGHT IN REACH.
--- NOTE | 2017-06-26 06:42 | NUR ---
PATIENT MEDICATED WITH DILAUDID 0.5MG FOR COMPLAINTS OF RIGHT HIP PAIN. CALL LIGHT IN REACH.
[2017-06-26 07:00] LABS: ALBUMIN 3.2 gm/dl (3.1-4.5); BUN 16 mg/dl (7-24); CHLORIDE 99 mmol/L (98-107); CREATININE 0.95 mg/dL (0.70-1.30); POTASSIUM 3.9 mmol/L (3.5-5.1); SGOT/AST 25 IU/L (3-35); SGPT/ALT 49 U/L (12-78); SODIUM 136 mmol/L (136-145)
[2017-06-26 07:01] LABS: ALKALINE PHOSPHATASE 62 U/L (45-117)
[2017-06-26 08:00] VITALS: BP 136/86
--- NOTE | 2017-06-26 08:06 | NUR ---
PT STATES DILAUDID HELPED WITH PAIN. RATES PAIN AT 7 OUT OF 10 AND STILL LOCATED IN THE RIGHT HIP AREA.
--- NOTE | 2017-06-26 08:12 | NUR ---
PT SITTING UP IN BED, EATING BREAKFAST. JOKING, TALKING ON PHONE. LUNGS DIMINISHED. PER PT, NO PROBLEMS WITH MEDIPORT. ASYMPTOMATIC. NO EDEMA NOTED. PT REPORTS PAIN ON RIGHT SIDE HIP AREA WHERE HE FELL AT HOME. SEE MAR.
--- NOTE | 2017-06-26 08:27 | NUR ---
PT REQUESTED MEDICATION FOR PAIN. PAIN LOCATED IN RIGHT HIP AREA AND DESCRIBED SHARP AND INTERMITTENT. PT REPORTS ONSET OF PAIN WHEN MOVING HIS LEG. PAIN IN THE HIP IS RATED AT 7 OUT OF 10. PT ALSO REPORTS PAIN IN THE CHEST AND DESCRIBES IT INTERMITTENT PRESSURE. AND RATES IT 5 OUT OF 10. NORCO GIVEN.
--- NOTE | 2017-06-26 08:33 | NUR ---
PT UP TO RESTROOM WITH SIDE ASSIST. PT USED WALKER. PT MOVED SLOWLY AND HAD MUCH PAIN IN THE RIGHT HIP AREA. OVERALL, PT TOLERATED WELL ASIDE FROM PAIN.
--- NOTE | 2017-06-26 10:23 | NUR ---
PT SITTING UP IN BED, WITH VISITORS IN ROOM. TOLERATED TAKING MEDICATIONS WELL.
--- NOTE | 2017-06-26 11:31 | NUR ---
PHYSICAL THERAPY Patient seen this am 1:1 for therapy sitting EOB with a family friend visiting and reports 8/10 R hip pain. Patient transfered sit to stand Min A with slow ascent and ambulated 10'x 1 to bathroom with use of std walker, Min A, demonstrating very slow, antalgic gait pattern with uneven step length. Patient completed safe toilet transfer with use of R side grab bar. Patient returned 10'x 1 to bedside chair and remained while transition assistant finished making his bed up. Patient also demonstrated Poor safety awareness during gait with walker navigation and especially decreased upright posture, as patient would bend forward without warning for pain relief. Will continue per POC as tolerated to improve functional transfers and mobility with decreased c/o pain. Dhruv Segovia, FIELD MAP TECHNICIAN
[2017-06-26 12:00] VITALS: BP 125/98
--- NOTE | 2017-06-26 12:35 | NUR ---
Pt had pulled emergency light in bathroom. Pt found sitting on floor turned away from sink and leaning on rt side. States that he was done showering and was getting dressed and his right leg gave out on him and he could not support himself with his left leg. Pt had walker off to left side of him. States he did not hit anything but held onto the sink and lowered himself to the floor. C/o right hip pain. Pt assisted up with help of 2 staff members and assisted to chair.
--- NOTE | 2017-06-26 12:42 | NUR ---
Dr. Saxena notified of pt being found sitting on floor in bathroom and pt statements.
--- NOTE | 2017-06-26 12:56 | NUR ---
Medicated with dilaudid per prn order for complaints of pain to rt hip.
--- NOTE | 2017-06-26 13:28 | NUR ---
Pt resting with eyes closed. Appears comfortable. Pain medication given earlier effective.
--- NOTE | 2017-06-26 13:39 | NUR ---
PT SITTING UP, LEGS HANGING OFF OF BED. BEDSIDE TABLE IN FRONT OF HER.
--- NOTE | 2017-06-26 14:34 | NUR ---
Received authorization for patient to go to [facility] [place]. Can go when ready for discharge.
--- NOTE | 2017-06-26 15:28 | NUR ---
Patient being discharged to [address] Transportation scheduled for 5PM with [facility]. NH and nursing notified.
[2017-06-26] MEDS ORDERED: ATORVASTATIN CA80 M1 PO (15:33)
[2017-06-26] MEDS ORDERED: Insulin Lispro, Reco SC (15:33)
[2017-06-26] MEDS ORDERED: GLUCOPHAGE500 M1 PO (15:33)
[2017-06-26] MEDS ORDERED: NORCO 5-325 TA1 EACH PO (15:33)
[2017-06-26] MEDS ORDERED: Vitamin D PO (15:33)
--- NOTE | 2017-06-26 15:36 | NUR ---
PT REQUESTED MEDICATION FOR PAIN OF THE RIGHT HIP AND CHEST. HIP PAIN IS DESCRIBED "STABBING" AND CONSTANT. PAIN RATED AT 10OUT OF 10. CHEST PAIN IS DESCRIBED INTERMITTENT PRESSURE. RATED AT 7 OUT OF 10. MEDICATION GIVEN. SEE MAR.
--- NOTE | 2017-06-26 16:45 | NUR ---
REMOVED MEDI-PORT IV ACCESS. PT TOLERATED WELL. SITE COLOR WNL. DRESSED WITH STERILE DRESSING.
--- NOTE | 2017-06-26 17:06 | NUR ---
TALKED TO SYDNI AT [facility] [place] AND GAVE REPORT REGARDING THIS PT. SHE WILL CALL BACK IF ANY FURTHER INFORMATION IS NEEDED.
--- NOTE | 2017-06-26 17:14 | NUR ---
PT PICKED UP BY [facility] FOR TRANSFER TO [facility] IN [place].
--- NOTE | 2017-06-26 17:15 | NUR ---
Discharge instructions reviewed with patient/family. Patient receptive and verbalizes understanding. Follow-up care arranged. Written instructions given to patient/family. MARCO MARQUEZ
--- NOTE | 2017-06-27 08:00 | NUR ---
PHYSICAL THERAPY CO-SIGN I approve of the Phyical Therapy notes written above. BETH BARBOSA PT
== END 2017-06-26 17:15 | disposition other institution (70) | DRG 391 ==
LOC: ED 13:03 → EDHOLD 16:06 → 5E 16:06
PROVIDERS: Emergency Medicine; Student in an Organized Health Care Education/Training Program; ADMIT Internal Medicine
DX: K21.9 Gastro-esophageal reflux disease without esophagitis (principal); J18.9 Pneumonia, unspecified organism; I11.0 Hypertensive heart disease with heart failure; E11.65 Type 2 diabetes mellitus with hyperglycemia; E66.01 Morbid (severe) obesity due to excess calories; I50.32 Chronic diastolic (congestive) heart failure; I71.2 Thoracic aortic aneurysm, without rupture; I69.354 Hemiplegia and hemiparesis following cerebral infarction affecting left non-dominant side; D64.9 Anemia, unspecified; Q85.00 Neurofibromatosis, unspecified; J44.0 Chronic obstructive pulmonary disease with (acute) lower respiratory infection; I25.10 Atherosclerotic heart disease of native coronary artery without angina pectoris; E03.9 Hypothyroidism, unspecified; E78.5 Hyperlipidemia, unspecified; G47.30 Sleep apnea, unspecified; R07.89 Other chest pain; G43.909 Migraine, unspecified, not intractable, without status migrainosus; F17.210 Nicotine dependence, cigarettes, uncomplicated; W19.XXXA Unspecified fall, initial encounter; R74.0 Nonspecific elevation of levels of transaminase and lactic acid dehydrogenase [LDH]; G40.909 Epilepsy, unspecified, not intractable, without status epilepticus; M25.551 Pain in right hip; Z71.6 Tobacco abuse counseling; Y92.10 Unspecified residential institution as the place of occurrence of the external cause; Z88.6 Allergy status to analgesic agent; Z91.041 Radiographic dye allergy status; Z91.013 Allergy to seafood; Z79.4 Long term (current) use of insulin; Z79.899 Other long term (current) drug therapy; Z86.718 Personal history of other venous thrombosis and embolism; Z86.711 Personal history of pulmonary embolism; Z90.49 Acquired absence of other specified parts of digestive tract; Z90.3 Acquired absence of stomach [part of]; Z98.61 Coronary angioplasty status; Z80.1 Family history of malignant neoplasm of trachea, bronchus and lung; Z80.3 Family history of malignant neoplasm of breast; Y93.89 Activity, other specified; Y99.8 Other external cause status; I25.2 Old myocardial infarction; Z68.34 Body mass index [BMI] 34.0-34.9, adult

== ENCOUNTER 2017-08-21 16:12 | Inpatient (IN) | payer MEDICARE, MEDICAID ==
[~2017-08-21] VITALS: Ht 177.8 cm; Wt 118.0 kg
[~2017-08-21 16:12] MED LIST changes: +ATORVASTATIN CA80 M1 PO; +GLUCOPHAGE500 M1 PO; +Insulin Lispro, Reco SC; +METOPROLOL SUCC50 M1 PO; +NORCO 5-325 TA1 EACH PO; +Vitamin D PO
[2017-08-21 16:25] VITALS: BP 131/92
[2017-08-21 16:56] LABS: BASO % 0.3 % (0.0-1.0); EOS # 0.3 10*3/uL (0.0-0.4); EOS % 2.3 % (1.0-4.0); HEMATOCRIT 38.1 % (42.0-52.0); HEMOGLOBIN 12.6 g/dl (14.0-18.0); LYMPH # 2.5 10*3/uL (1.3-4.4); MEAN CELL VOLUME 92.3 fl (80.0-94.0); MEAN CORPUSCULAR HGB 30.5 pg (27.0-31.0); MEAN CORPUSCULAR HGB CONC 33.1 g/dl (33.0-37.0); MONO % 6.5 % (3.0-9.0); NEUT # 10.5 10*3/uL (2.3-7.9); NEUT % 72.3 % (47.0-73.0); PLATELET COUNT AUTOMATED 216 10*3/uL (130-400); RED BLOOD COUNT 4.13 10*6/uL (4.50-5.90); RED CELL DISTRI WIDTH 14.6 % (0-14.5); WHITE BLOOD COUNT 14.6 10*3/uL (4.8-10.8)
[2017-08-21 17:00] VITALS: BP 156/100
[2017-08-21 17:06] LABS: ACT PARTIAL THROMBO TIME 27.1 SECONDS (20.8-31.5)
[2017-08-21 17:12] LABS: ALBUMIN 2.9 gm/dl (3.1-4.5); ALKALINE PHOSPHATASE 87 U/L (45-117); BUN 27 mg/dl (7-24); CHLORIDE 100 mmol/L (98-107); CREATININE 1.52 mg/dL (0.70-1.30); POTASSIUM 3.8 mmol/L (3.5-5.1); SGOT/AST 18 IU/L (3-35); SGPT/ALT 18 U/L (12-78); SODIUM 134 mmol/L (136-145)
[2017-08-21 17:16] LABS: TROPONIN I < 0.015 ng/ml (<0.045)
[2017-08-21] MEDS ORDERED: CYMBALTA60 MG PO (17:16)
[2017-08-21] MEDS ORDERED: XANAX XR0.5 MG PO (17:16)
[2017-08-21] MEDS ORDERED: REMERON15 M2 PO (17:17)
[2017-08-21 17:30] VITALS: BP 131/92
[2017-08-21 17:58] VITALS: BP 136/90
[2017-08-21 19:30] VITALS: BP 125/81
[2017-08-21] MEDS ORDERED: LEVEMIR100 UNIT/1 SC (21:22)
[2017-08-21] MEDS ORDERED: ACCUNEB 0.1.25 MG/1 INH (21:24)
[2017-08-21 23:35] LABS: BILIRUBIN NEGATIVE (NEGATIVE); BLOOD 1+ (NEGATIVE); CLARITY CLEAR (CLEAR); COLOR YELLOW (YELLOW); GLUCOSE 3+ (NEGATIVE); KETONE TRACE (NEGATIVE); LEUKO ESTERASE NEGATIVE (NEGATIVE); NITRITE NEGATIVE (NEGATIVE); SPECIFIC GRAVITY <= 1.005 (1.005-1.030); UROBILINOGEN 0.2 E.U./dl (0.2-1.0)
[2017-08-21 23:44] LABS: WBC 0-2 wbc/hpf (0-5)
[2017-08-22] VITALS: BP 125/82
[2017-08-22 00:10] VITALS: BP 142/82
[2017-08-22 06:27] LABS: BASO % 0.1 % (0.0-1.0); EOS % 0.1 % (1.0-4.0); HEMATOCRIT 37.1 % (42.0-52.0); HEMOGLOBIN 12.4 g/dl (14.0-18.0); LYMPH # 1.9 10*3/uL (1.3-4.4); LYMPH % 12.2 % (27.0-41.0); MEAN CELL VOLUME 91.6 fl (80.0-94.0); MEAN CORPUSCULAR HGB 30.6 pg (27.0-31.0); MEAN CORPUSCULAR HGB CONC 33.4 g/dl (33.0-37.0); MEAN PLATELET VOLUME 11.2 fl (9.6-12.3); MONO # 0.6 10*3/uL (0.1-1.0); NEUT % 82.5 % (47.0-73.0); PLATELET COUNT AUTOMATED 240 10*3/uL (130-400); RED BLOOD COUNT 4.05 10*6/uL (4.50-5.90); RED CELL DISTRI WIDTH 14.5 % (0-14.5); WHITE BLOOD COUNT 15.7 10*3/uL (4.8-10.8)
[2017-08-22 06:42] LABS: ALBUMIN 2.7 gm/dl (3.1-4.5); ALKALINE PHOSPHATASE 84 U/L (45-117); BUN 18 mg/dl (7-24); CHLORIDE 103 mmol/L (98-107); CREATININE 0.98 mg/dL (0.70-1.30); FREE T4 1.12 ng/dl (0.76-1.46); PHOSPHOROUS 2.7 mg/dL (2.5-4.9); POTASSIUM 4.4 mmol/L (3.5-5.1); SGOT/AST 17 IU/L (3-35); SGPT/ALT 17 U/L (12-78); SODIUM 136 mmol/L (136-145); TOTAL PROTEIN 7.2 gm/dL (6.4-8.2)
[2017-08-22 06:47] LABS: THYROID STIM HORMONE (HS) 0.197 uIU/ml (0.358-4.75)
[2017-08-22 07:40] LABS: VITAMIN D, 25-HYDROXY 16.6 ng/mL (30-100)
[2017-08-22 08:00] VITALS: BP 114/76
[2017-08-22 12:00] VITALS: BP 133/83
[2017-08-22 16:00] VITALS: BP 100/76
[2017-08-22 20:00] VITALS: BP 130/90
[2017-08-23] VITALS: BP 97/55
[2017-08-23 07:06] LABS: BASO % 0.1 % (0.0-1.0); HEMATOCRIT 33.9 % (42.0-52.0); HEMOGLOBIN 11.3 g/dl (14.0-18.0); LYMPH # 2.6 10*3/uL (1.3-4.4); LYMPH % 11.8 % (27.0-41.0); MEAN CELL VOLUME 93.1 fl (80.0-94.0); MEAN CORPUSCULAR HGB CONC 33.3 g/dl (33.0-37.0); MEAN PLATELET VOLUME 11.2 fl (9.6-12.3); MONO # 1.3 10*3/uL (0.1-1.0); MONO % 5.9 % (3.0-9.0); NEUT # 17.5 10*3/uL (2.3-7.9); NEUT % 80.9 % (47.0-73.0); PLATELET COUNT AUTOMATED 224 10*3/uL (130-400); RED BLOOD COUNT 3.64 10*6/uL (4.50-5.90); RED CELL DISTRI WIDTH 14.4 % (0-14.5); WHITE BLOOD COUNT 21.7 10*3/uL (4.8-10.8)
[2017-08-23 07:38] LABS: BUN 19 mg/dl (7-24); CHLORIDE 102 mmol/L (98-107); CREATININE 0.94 mg/dL (0.70-1.30); POTASSIUM 4.2 mmol/L (3.5-5.1); SODIUM 135 mmol/L (136-145)
[2017-08-23 08:00] VITALS: BP 120/96
[2017-08-23 12:00] VITALS: BP 148/82
[2017-08-23 16:00] VITALS: BP 126/56
[2017-08-23 20:00] VITALS: BP 116/82
[2017-08-24] VITALS: BP 115/91
[2017-08-24 07:23] LABS: HEMATOCRIT 34.9 % (42.0-52.0); HEMOGLOBIN 11.6 g/dl (14.0-18.0); MEAN CELL VOLUME 93.6 fl (80.0-94.0); MEAN CORPUSCULAR HGB 31.1 pg (27.0-31.0); MEAN CORPUSCULAR HGB CONC 33.2 g/dl (33.0-37.0); MEAN PLATELET VOLUME 11.4 fl (9.6-12.3); PLATELET COUNT AUTOMATED 215 10*3/uL (130-400); RED BLOOD COUNT 3.73 10*6/uL (4.50-5.90); RED CELL DISTRI WIDTH 14.7 % (0-14.5); WHITE BLOOD COUNT 18.1 10*3/uL (4.8-10.8)
[2017-08-24 07:56] LABS: BUN 20 mg/dl (7-24); CHLORIDE 101 mmol/L (98-107); POTASSIUM 4.3 mmol/L (3.5-5.1); SODIUM 135 mmol/L (136-145)
[2017-08-24 08:00] VITALS: BP 112/78
[2017-08-24 08:39] LABS: TOTAL CELLS COUNTED 100 #CELLS
[2017-08-24 08:40] LABS: PLATELET SUFFICIENCY NORMAL (NORMAL); POLYCHROMASIA SLIGHT
[2017-08-24] MEDS ORDERED: PREDNISONE10 MG PO (11:59)
[2017-08-24] MEDS ORDERED: LEVAQUIN750 M1 PO (11:59)
[2017-08-24 12:00] VITALS: BP 132/61
== END 2017-08-24 12:34 | disposition home or self-care (01) | DRG 871 ==
LOC: ED 16:12 → EDHOLD 18:02 → 5E 18:02
PROVIDERS: Family Medicine; Nurse Practitioner; Student in an Organized Health Care Education/Training Program
DX: A41.9 Sepsis, unspecified organism (principal); J18.9 Pneumonia, unspecified organism; N17.0 Acute kidney failure with tubular necrosis; I11.0 Hypertensive heart disease with heart failure; I50.32 Chronic diastolic (congestive) heart failure; E11.65 Type 2 diabetes mellitus with hyperglycemia; Z99.81 Dependence on supplemental oxygen; D64.9 Anemia, unspecified; Q85.00 Neurofibromatosis, unspecified; J44.0 Chronic obstructive pulmonary disease with (acute) lower respiratory infection; E87.1 Hypo-osmolality and hyponatremia; J44.1 Chronic obstructive pulmonary disease with (acute) exacerbation; G43.909 Migraine, unspecified, not intractable, without status migrainosus; E55.9 Vitamin D deficiency, unspecified; R65.20 Severe sepsis without septic shock; K21.9 Gastro-esophageal reflux disease without esophagitis; F44.4 Conversion disorder with motor symptom or deficit; E66.01 Morbid (severe) obesity due to excess calories; Z71.6 Tobacco abuse counseling; F41.9 Anxiety disorder, unspecified; I25.10 Atherosclerotic heart disease of native coronary artery without angina pectoris; G40.909 Epilepsy, unspecified, not intractable, without status epilepticus; E78.5 Hyperlipidemia, unspecified; E03.9 Hypothyroidism, unspecified; F17.210 Nicotine dependence, cigarettes, uncomplicated; G47.33 Obstructive sleep apnea (adult) (pediatric); Z79.4 Long term (current) use of insulin; Z68.37 Body mass index [BMI] 37.0-37.9, adult; Z88.6 Allergy status to analgesic agent; Z91.041 Radiographic dye allergy status; Z91.013 Allergy to seafood; Z98.1 Arthrodesis status; Z90.49 Acquired absence of other specified parts of digestive tract; Z95.5 Presence of coronary angioplasty implant and graft; Z80.1 Family history of malignant neoplasm of trachea, bronchus and lung; Z80.3 Family history of malignant neoplasm of breast; Z86.718 Personal history of other venous thrombosis and embolism; Z86.711 Personal history of pulmonary embolism; Z86.73 Personal history of transient ischemic attack (TIA), and cerebral infarction without residual deficits; I25.2 Old myocardial infarction; Z90.3 Acquired absence of stomach [part of]; Z79.899 Other long term (current) drug therapy; Z79.02 Long term (current) use of antithrombotics/antiplatelets

== ENCOUNTER 2017-09-11 16:45 | Emergency (ER) | payer MEDICARE, MEDICAID ==
[~2017-09-11] VITALS: Ht 177.8 cm; Wt 113.9 kg
[~2017-09-11 16:45] MED LIST changes: +ACCUNEB 0.1.25 MG/1 INH; +CYMBALTA60 MG PO; +LEVAQUIN750 M1 PO; +LEVEMIR100 UNIT/1 SC; +REMERON15 M2 PO; +XANAX XR0.5 MG PO
[2017-09-11] MEDS ORDERED: NORCO 5-325 TA1 EACH PO (19:28)
== END 2017-09-11 19:34 | disposition home or self-care (01) ==
LOC: ED 16:45
DX: M25.462 Effusion, left knee (principal); R60.0 Localized edema; M25.552 Pain in left hip; F17.200 Nicotine dependence, unspecified, uncomplicated; Z98.890 Other specified postprocedural states; Z90.89 Acquired absence of other organs; Z95.5 Presence of coronary angioplasty implant and graft; Z79.4 Long term (current) use of insulin; Z79.899 Other long term (current) drug therapy; Z91.041 Radiographic dye allergy status; Z88.6 Allergy status to analgesic agent; Z91.013 Allergy to seafood; W01.0XXA Fall on same level from slipping, tripping and stumbling without subsequent striking against object, initial encounter; Y93.89 Activity, other specified; Y92.89 Other specified places as the place of occurrence of the external cause; Y99.9 Unspecified external cause status

== ENCOUNTER 2020-01-21 20:57 | Inpatient (IN) | payer OTHER ==
[~2020-01-21] VITALS: Ht 177.8 cm; Wt 105.5 kg
[~2020-01-21 20:57] MED LIST changes: -METOPROLOL SUCC50 M1 PO; -NITROGLYCERIN0.4 MG PO; +NITROGLYCERIN0.4 MG SL; +TOPROL XL25 MG PO
[2020-01-21 21:00] VITALS: BP 140/79
--- NOTE | 2020-01-21 21:00 | NUR ---
QUALITY ASSURANCE ASSOCIATE JOSE LUIS ROMAN NOTIFIED OF PT FALL IN PARKING LOT UPON ARRIVAL TO ED.INCIDENT REPORT COMPLETED ([id number]).
[2020-01-21 21:16] LABS: BASO # 0.1 10*3/uL (0.0-0.1); BASO % 0.9 % (0.0-1.0); EOS # 0.5 10*3/uL (0.0-0.4); EOS % 3.4 % (1.0-4.0); HEMATOCRIT 38.7 % (42.0-52.0); LYMPH # 3.9 10*3/uL (1.3-4.4); LYMPH % 26.3 % (27.0-41.0); MEAN CELL VOLUME 92.8 fl (80.0-94.0); MEAN CORPUSCULAR HGB 30.5 pg (27.0-31.0); MEAN CORPUSCULAR HGB CONC 32.8 g/dl (33.0-37.0); MEAN PLATELET VOLUME 11.2 fl (9.6-12.3); MONO % 6.6 % (3.0-9.0); NEUT # 9.3 10*3/uL (2.3-7.9); NEUT % 62.4 % (47.0-73.0); PLATELET COUNT AUTOMATED 227 10*3/uL (130-400); RED BLOOD COUNT 4.17 10*6/uL (4.50-5.90); RED CELL DISTRI WIDTH 15.9 % (0-14.5); WHITE BLOOD COUNT 14.8 10*3/uL (4.8-10.8)
[2020-01-21 21:26] LABS: ACT PARTIAL THROMBO TIME 25.6 SECONDS (20.0-32.1)
[2020-01-21 21:31] LABS: ALBUMIN 3.3 gm/dl (3.1-4.5); ALKALINE PHOSPHATASE 90 U/L (45-117); BUN 22 mg/dl (7-24); CHLORIDE 110 mmol/L (98-107); CREATININE 1.54 mg/dL (0.70-1.30); POTASSIUM 3.7 mmol/L (3.5-5.1); SGOT/AST 22 IU/L (3-35); SGPT/ALT 19 U/L (12-78); SODIUM 139 mmol/L (136-145); TOTAL PROTEIN 7.7 gm/dL (6.4-8.2)
[2020-01-21 21:33] LABS: TROPONIN I < 0.015 ng/ml (<0.045)
[2020-01-21 22:14] VITALS: BP 112/78
--- NOTE | 2020-01-21 22:36 | NUR ---
PT REQUESTING PAIN MEDICATION, PROVIDER AWARE
[2020-01-21 23:45] VITALS: BP 105/58
[2020-01-22 00:22] VITALS: BP 125/64
--- NOTE | 2020-01-22 00:22 | NUR ---
A 64, admitted to 4E, under the services of PARAMJIT Banerjee DO with a diagnosis of CHEST PAIN, HEAD INJURY. Chief complaint is TINGLING IN BLE AND CHEST PAIN. Patient arrived via stretcher from ER. Monitor applied. Initial assessment completed. Vital signs taken and recorded. PARAMJIT BANERJEE DO notified of admission to the unit. Orders received. See assessment for past medical history, medications and allergies. Patient and/or family oriented to unit. Clothing/patient valuable form completed. GODFREY BERNARD
--- NOTE | 2020-01-22 00:37 | NUR ---
DR HAIDER IN TO SEE PT
[2020-01-22] MEDS ORDERED: FENOFIBRATE160 MG PO (02:06)
[2020-01-22] MEDS ORDERED: RANOLAZINE ER500 MG PO (02:08)
[2020-01-22] MEDS ORDERED: GLUCOTROL5 MG PO (02:09)
[2020-01-22] MEDS ORDERED: TOPAMAX50 MG PO (02:09)
[2020-01-22] MEDS ORDERED: CYCLOBENZAPRINE10 MG PO (02:15)
[2020-01-22] MEDS ORDERED: 8 HOUR650 MG PO (02:17)
[2020-01-22] MEDS ORDERED: TRAMADOL HCL50 MG PO (02:18)
[2020-01-22] MEDS ORDERED: NATURE'S BLEND F1 MG PO (02:18)
[2020-01-22] MEDS ORDERED: COLACE100 MG PO (02:20)
[2020-01-22] MEDS ORDERED: LIDOCAINE PAIN1 EACH T (02:21)
[2020-01-22] MEDS ORDERED: POTASSIUM CHLO10 ME4 PO (02:21)
[2020-01-22] MEDS ORDERED: SEROQUEL50 MG PO (02:22)
[2020-01-22] MEDS ORDERED: HYDROXYZINE HCL50 MG PO (02:23)
[2020-01-22] MEDS ORDERED: MAGOX 400400 MG PO (02:27)
--- NOTE | 2020-01-22 02:46 | NUR ---
MED REC UPDATED PER PT'S DISCHARGE PAPERS FROM [facility] DATED 01/12/20
--- NOTE | 2020-01-22 02:52 | NUR ---
TYLENOL GIVEN FOR C/O PAIN. WILL MONITOR
--- NOTE | 2020-01-22 03:52 | NUR ---
TYLENOL APPEARS EFFECTIVE; PT RESTING
--- NOTE | 2020-01-22 04:55 | NUR ---
ANSWERING SERVICE FOR DR BOND NOTIFIED OF NEW CONSULT
[2020-01-22 08:00] VITALS: BP 125/83
--- NOTE | 2020-01-22 09:11 | NUR ---
NORCO 5/325 MG GIVEN FOR C/O BACK PAIN,04/27.
[2020-01-22 10:15] VITALS: BP 137/55
--- NOTE | 2020-01-22 10:46 | NUR ---
Financial Services Professional in to talk to patient. Patient states lives at HOME with FAMILY. There are 12 steps in the home. Physician: CHITO MELÉNDEZ [facility] Home health services: UNABLE PROVIDE NAME Patient's level of ADLs: INDEPENDENT Patient has working utilities: YES DME: BACK AND LEG BRACES, WALKER, CANE, CPAP Follow-up physician's appointment after d/c: WILL BE MADE BY HOSPITALIST RN COORDINATOR UPON DISCHARGE. Does patient want to access PORTAL?: NO Discharge plan LIFT MANAGER SPOKE WITH THE PATIENT. PATIENT STATED HE LIVES IN THE BASEMENT OF HIS BROTHER IN [place] AND [place] HOME. PATIENT STATED HE IS WORKING WITH A TEAM MANAGER FROM [facility] TO FIND AN APARTMENT. HER NAME IS RIKY [phone] HER EMAIL IS [email or web address]. PATIENT STATED THAT HE HAS A RN FROM [employer] 2X WEEKLY. PATIENT STATED THAT HE WEARS BRACES FROM HIS SHOULDERS TO HIS LEG. PATIENT STATED THAT HE USES A WALKER, CAN, CPAP FROM [facility]. PATIENT DOES DRIVE. PATIENT STATED IF HE NEEDS TO GO TO SNF WOULD LIKE REFERRAL SENT TO [facility] IN [place]. PATIENT DENIES ANY OTHER NEEDS AT THIS TIME. LIFT MANAGER WILL FAX REFERAL TO [facility] FOR REVIEW. PATIENT WILL NEED A RAPID COVID TEST BEFORE ADMISSION. PATIENT INSURANCE DOES REQUIRE A PRECERT. LEONARDO HARRIS
[2020-01-22 12:00] VITALS: BP 127/71
[2020-01-22 16:00] VITALS: BP 114/60
[2020-01-22 20:00] VITALS: BP 107/47
--- NOTE | 2020-01-22 20:00 | NUR ---
RESTING IN BED; VOICES NO C/O AT THIS TIME. CALL LIGHT WITHIN REACH.
--- NOTE | 2020-01-22 22:00 | NUR ---
BLOOD SUGAR 100; NO COVERAGE REQUIRED.
--- NOTE | 2020-01-22 23:30 | NUR ---
REPORT RECIEVED FROM OUTGOING NURSE. RESUMED CARE OF THIS PATIENT.
[2020-01-23] VITALS (9 sets, daily range): BP systolic 91–146; BP diastolic 50–74
--- NOTE | 2020-01-23 02:32 | NUR ---
24 HR chart check completed.
[2020-01-23 06:35] LABS: BASO # 0.1 10*3/uL (0.0-0.1); BASO % 1.1 % (0.0-1.0); EOS # 0.4 10*3/uL (0.0-0.4); EOS % 4.8 % (1.0-4.0); HEMATOCRIT 38.2 % (42.0-52.0); LYMPH # 2.4 10*3/uL (1.3-4.4); LYMPH % 28.7 % (27.0-41.0); MEAN CELL VOLUME 92.3 fl (80.0-94.0); MEAN CORPUSCULAR HGB 29.7 pg (27.0-31.0); MEAN CORPUSCULAR HGB CONC 32.2 g/dl (33.0-37.0); MEAN PLATELET VOLUME 11.2 fl (9.6-12.3); MONO # 0.5 10*3/uL (0.1-1.0); MONO % 6.5 % (3.0-9.0); NEUT # 4.9 10*3/uL (2.3-7.9); NEUT % 58.5 % (47.0-73.0); PLATELET COUNT AUTOMATED 225 10*3/uL (130-400); RED BLOOD COUNT 4.14 10*6/uL (4.50-5.90); RED CELL DISTRI WIDTH 16.1 % (0-14.5); WHITE BLOOD COUNT 8.3 10*3/uL (4.8-10.8)
[2020-01-23 07:10] LABS: BUN 15 mg/dl (7-24); CHLORIDE 110 mmol/L (98-107); CHOLESTEROL 105 mg/dL (<200); CREATININE 1.27 mg/dL (0.70-1.30); HDL CHOLESTEROL 32 mg/dl (40-60); LDL CHOLESTEROL 37 mg/dL (9-159); POTASSIUM 4.3 mmol/L (3.5-5.1); SODIUM 138 mmol/L (136-145); TRIGLYCERIDES 182 mg/dl (<150); VLDL CHOLESTEROL 36 mg/dL (6-40)
[2020-01-23 07:16] LABS: THYROID STIM HORMONE (HS) 0.333 uIU/ml (0.358-4.75)
--- NOTE | 2020-01-23 07:56 | NUR ---
DR RODRIGUEZ IN TO SEE PATIENT
--- NOTE | 2020-01-23 09:50 | NUR ---
CALLED DR MONTE PER PT HAVING CHEST PAIN, STATES HE WILL COME TO SEE PATIENT NOW
--- NOTE | 2020-01-23 09:55 | NUR ---
PT COMPLAINS OF CHEST PAIN THAT IS MIDSTERNAL AND RADIATES TO LEFT ARM RATING A 9/10. PT STATES THAT THIS FEELS LIKE PAST [place] THAT HE HAS HAD BEFORE. STAT EKG ORDERED. WILL CONTINUE TO MONITOR
--- NOTE | 2020-01-23 09:57 | NUR ---
DR MONTE IN TO SEE PATIENT
--- NOTE | 2020-01-23 10:10 | NUR ---
CALLED PHARMACY TO HAVE THEM VERIFY
--- NOTE | 2020-01-23 10:16 | NUR ---
PT GIVEN NITRO SUB, WILL MONITOR FOR EFFECTIVENESS
--- NOTE | 2020-01-23 10:28 | NUR ---
IN TO SEE IF PATIENT IS FEELING ANY RELIEF FROM NITRO, PT STATES A LITTLE BUT THE CHEST PAIN IS THERE STILL. CALLED DR MONTE ON PHONE AND STATES HE WILL ADD ANOTHER DOSE FOR NITRO
--- NOTE | 2020-01-23 10:46 | NUR ---
NITRO SUBLINGUAL GIVEN, ILL MONITOR FOR EFFECTINVESS
--- NOTE | 2020-01-23 10:58 | NUR ---
PT STATES HE IS STILL HAVING CHEST PAIN THAT IS A SQUEEZING PRESSURE, RATING IT A 8/10. DR MONTE NOTED OF THIS AND STATES THE GIVE ONE MORE SUBLINGUAL AND AFTER THAT STILL HAVING CHEST PAIN TO CALL DR BOND
--- NOTE | 2020-01-23 11:02 | NUR ---
NITRO SUBLINGUAL GIVEN, WILL MONITOR FOR EFFECTIVNESS
--- NOTE | 2020-01-23 11:05 | NUR ---
PT STATES NO RELIEF FROM PAIN PRN TYLNEOL PO GIVEN FOR HEADACHE, WILL MONITOR FOR EFFECTIVENESS
--- NOTE | 2020-01-23 11:15 | NUR ---
CALLED DR BOND ANSWERING SERVICE, WILL WAIT FOR CALL BACK
--- NOTE | 2020-01-23 11:19 | NUR ---
DR BOND CALLED WILL ADD ORDER DESIRED, STATES HE WILL BE DOWN SOON TO ROUND
--- NOTE | 2020-01-23 11:29 | NUR ---
Shift chart check completed.
--- NOTE | 2020-01-23 12:00 | NUR ---
PT STATES THAT HE STILL HAS A HEADACHE BUT NOT BAD BEFORE. WILL CONTINUE TO MONITOR. PT MADE AWARE NITRO PASTE WILL NOT BE GIVEN DUE TO LOW BLOOD PRESSURE
--- NOTE | 2020-01-23 17:54 | NUR ---
PRN NITRO SUBLINGUAL GIVEN FOR CHEST PAIN RATING A 10/10. PT STATES THE PAIN IS MIDSTERNAL AND RADIATES TO HIS LEFT ARM. HE DESCRIBES IT A SHARP PAIN
--- NOTE | 2020-01-23 17:58 | NUR ---
DR MONTE INFORMED OF PT CHEST PAIN, HE STATES TO GIVE THE NITRO THAT IS SUBLINGUAL PRN, AND CONTINUE TO MONITOR
--- NOTE | 2020-01-23 18:12 | NUR ---
PT STATES HE IS STILL HAVING CHEST PAIN
--- NOTE | 2020-01-23 19:28 | NUR ---
PATIENT STATED HE WAS STILL HAVING CHEST PAIN AND THAT THE NITRO DIDN'T WORK. HE STATED IT WAS RADIATING TO HIS SHOULDERS AND DOWN HIS LEFT ARM. TROPONINS AND EKG WERE ORDERED DURING DAYSHIFT AND TROPONINS NEGATIVE, EKG NORMAL. PATIENT REQUESTING NORCO FOR PAIN. BP 116/60 AND HEART RATE IN THE 70'S. NOTIFIED DR MONTALVO AND SHE STATED TO GO AHEAD AND GIVE THE NORCO.
--- NOTE | 2020-01-23 19:32 | NUR ---
NORCO GIVEN PER PATIENT REQUEST FOR COMPLAINTS OF CHEST PAIN, SHOULDER PAIN, AND LEFT ARM PAIN RATED 9/10. WILL ASSESS EFFECTIVENESS.
--- NOTE | 2020-01-23 20:27 | NUR ---
PATIENT STATED NORCO WAS SLIGHTLY EFFECTIVE. PAIN NOW RATED 5/10. PATIENT RESTING QUIETLY IN BED. WATCHING TV WITH ARMS ABOVE HEAD. CALL LIGHT WITHIN REACH. WILL CONTINUE TO MONITOR.
[2020-01-24] VITALS: BP 118/77
[2020-01-24 05:52] VITALS: BP 118/78
[2020-01-24 06:31] LABS: BASO # 0.1 10*3/uL (0.0-0.1); EOS # 0.4 10*3/uL (0.0-0.4); EOS % 5.2 % (1.0-4.0); HEMATOCRIT 37.6 % (42.0-52.0); LYMPH # 2.8 10*3/uL (1.3-4.4); LYMPH % 35.5 % (27.0-41.0); MEAN CELL VOLUME 94.2 fl (80.0-94.0); MEAN CORPUSCULAR HGB 29.8 pg (27.0-31.0); MEAN CORPUSCULAR HGB CONC 31.6 g/dl (33.0-37.0); MEAN PLATELET VOLUME 11.4 fl (9.6-12.3); MONO # 0.7 10*3/uL (0.1-1.0); MONO % 9.4 % (3.0-9.0); NEUT # 3.8 10*3/uL (2.3-7.9); NEUT % 48.5 % (47.0-73.0); PLATELET COUNT AUTOMATED 216 10*3/uL (130-400); RED BLOOD COUNT 3.99 10*6/uL (4.50-5.90); WHITE BLOOD COUNT 7.8 10*3/uL (4.8-10.8)
[2020-01-24 06:56] LABS: BUN 23 mg/dl (7-24); CHLORIDE 110 mmol/L (98-107); CREATININE 1.39 mg/dL (0.70-1.30); POTASSIUM 4.1 mmol/L (3.5-5.1); SODIUM 138 mmol/L (136-145)
--- NOTE | 2020-01-24 07:40 | NUR ---
IN PT ROOM, HE IS ON HIS RIGHT SIDE AND SLEEPING. NO SIGNS OF DISTRESS NOTED. WILL CONTINUE TO MONITOR, CALL LIGHT WITHIN REACH.
--- NOTE | 2020-01-24 07:56 | NUR ---
Nursing screen and occupational therapy order received. Will follow up with a patient for completion of an OT eval. Thank you. Sarita Helms OTR/L
[2020-01-24 08:00] VITALS: BP 114/96
--- NOTE | 2020-01-24 08:18 | NUR ---
PHYSICAL THERAPY PT screen complete and chart reviewed. PT order received. Will follow. Thank you. Celina Patten,PT,DPT
--- NOTE | 2020-01-24 08:53 | NUR ---
ABALONE SHELLER RECEIVED CALL FROM [facility]. PER HER ADMIN THEY ARE UNABLE TO ACCEPT THE PATIENT AT THIS TIME.
--- NOTE | 2020-01-24 09:45 | NUR ---
PT LEAVING FLOOR FOR STRESS TEST
--- NOTE | 2020-01-24 10:06 | NUR ---
PHYSICAL THERAPY Physical therapy evaluation attempted. Patient out of room for stress test. Will return at a later time/date. Thank you. Celina Patten,PT,DPT
--- NOTE | 2020-01-24 10:27 | NUR ---
Occupational Therapy evlauation attempted. Pt out of room for stress test at this time. Will return at a later time/ date. Thank you. Argenis Everett OTR/L
--- NOTE | 2020-01-24 11:04 | NUR ---
INFORMED CONSENT SIGNED FOR LEXISCAN STRESS TEST WITH DR. SILVER. RESTING EKG NSR, HR 70, BP 114/80. PULSE OX 99% AND LUNG SOUNDS HARSH BILATERALLY. COMPLETED ONE MINUTE OF LEXISCAN PROTOCOL RECEIVING LEXISCAN 0.4MG OVER 10 SEC[address]DS[address] NO ARRHYTHMIAS OR ST CHANGES NOTED. PT C/O CHEST PAIN AND SOB. LAST RECOVERY HR 94, BP 106/78. WAITING NUCLEAR SCANNING IN STABLE CONDITION.
[2020-01-24 12:00] VITALS: BP 114/74
--- NOTE | 2020-01-24 12:45 | NUR ---
PT BACK ON THE FLOOR
--- NOTE | 2020-01-24 12:51 | NUR ---
Occupational therapy attempted evaluation. Pt with respitory therapist at this time. Will return at a later date/time. Thank you. Argenis Everett.
--- NOTE | 2020-01-24 15:01 | NUR ---
FUSELAGE FRAMER ATTEMPTED TO REACH OUT TO [facility], FUSELAGE FRAMER LEFT MESSAGE FOR A RETURN CALL.
--- NOTE | 2020-01-24 15:03 | NUR ---
EXPLOSIVES HANDLER IN TO TALK TO PT. INFORMED HIM THAT SKIP WAS UNABLE TO TAKE HIM AT THIS TIME. PT STATES DOCTOR TOLD HIM HE COULD GO HOME. STATES HE HAS A VISITING NURSE FROM [facility] AND ALSO HAS AN AID BUT HE IS UNSURE OF WHAT COMPANY SHE COMES FROM. MANAGER OF HOUSEKEEPING ATTEMPTED TO CALL PT [employer] SUPERVISOR TO FIND OUT NAME OF COMPANY. LEFT MESSAGE FOR THEM TO CALL BACK. PT STATES HE FEELS HE CAN GO HOME.
[2020-01-24 16:00] VITALS: BP 114/74
[2020-01-24] MEDS ORDERED: IMDUR SA30 MG PO (16:24)
[2020-01-24] MEDS ORDERED: DOXYCYCLINE MO100 M1 PO (16:24)
--- NOTE | 2020-01-24 16:24 | NUR ---
PT STATES HE IS HAVING BACK PAIN 9/10 PRN NORCO PO GIVEN. WILL MONITOREFFECTIVENESS
--- NOTE | 2020-01-24 16:49 | NUR ---
PT STATES NORCO EFFECTIVE
--- NOTE | 2020-01-24 16:56 | NUR ---
[employer] REMOVED, MASTER PLANNER TAKEN OFF. WENT OVER DISCHARGE PLANS.PT HAS NO QUESTIONS AT THIS TIME AND HAS ALL OF HIS BELONGINGS. PT LEAVING THE FLOOR AT THIS TIME
--- NOTE | 2020-01-25 10:33 | NUR ---
GRECIA RECEIVED RETURN CALL FROM [facility]. GRECIA INFORMED HER PATIEN WAS DISCHARGED HOME. SHE STATED SHE WOULD FOLLOW UP WITH THE PATIENT.
== END 2020-01-24 18:49 | disposition home or self-care (01) | DRG 871 ==
LOC: ED 20:57 → 4E 23:36 → EDHOLD 23:36 → 4E 01-22 00:03
PROVIDERS: Emergency Medicine; Internal Medicine; Student in an Organized Health Care Education/Training Program; ADMIT Internal Medicine
PROC: 3E073KZ Introduction of Other Diagnostic Substance into Coronary Artery, Percutaneous Approach (ICD-10-PCS; principal; 2020-01-24)
PROC: 4A02XM4 Measurement of Cardiac Total Activity, External Approach (ICD-10-PCS; principal; 2020-01-24)
DX: A41.9 Sepsis, unspecified organism (principal); N17.0 Acute kidney failure with tubular necrosis; J15.6 Pneumonia due to other Gram-negative bacteria; J44.0 Chronic obstructive pulmonary disease with (acute) lower respiratory infection; I50.32 Chronic diastolic (congestive) heart failure; I13.0 Hypertensive heart and chronic kidney disease with heart failure and stage 1 through stage 4 chronic kidney disease, or unspecified chronic kidney disease; M48.54XA Collapsed vertebra, not elsewhere classified, thoracic region, initial encounter for fracture; R07.89 Other chest pain; R65.20 Severe sepsis without septic shock; Z74.09 Other reduced mobility; E87.8 Other disorders of electrolyte and fluid balance, not elsewhere classified; F44.4 Conversion disorder with motor symptom or deficit; F17.210 Nicotine dependence, cigarettes, uncomplicated; E11.65 Type 2 diabetes mellitus with hyperglycemia; G47.30 Sleep apnea, unspecified; K21.9 Gastro-esophageal reflux disease without esophagitis; E66.01 Morbid (severe) obesity due to excess calories; N18.3 Chronic kidney disease, stage 3 (moderate); G40.909 Epilepsy, unspecified, not intractable, without status epilepticus; G43.909 Migraine, unspecified, not intractable, without status migrainosus; I25.119 Atherosclerotic heart disease of native coronary artery with unspecified angina pectoris; E11.22 Type 2 diabetes mellitus with diabetic chronic kidney disease; D64.9 Anemia, unspecified; E78.5 Hyperlipidemia, unspecified; R00.1 Bradycardia, unspecified; S09.90XA Unspecified injury of head, initial encounter; W18.30XA Fall on same level, unspecified, initial encounter; Y93.89 Activity, other specified; Y92.89 Other specified places as the place of occurrence of the external cause; Z79.4 Long term (current) use of insulin; I25.2 Old myocardial infarction; Y99.8 Other external cause status; Z91.041 Radiographic dye allergy status; Z91.013 Allergy to seafood; Z88.6 Allergy status to analgesic agent; Z86.73 Personal history of transient ischemic attack (TIA), and cerebral infarction without residual deficits; Z86.711 Personal history of pulmonary embolism; Z86.718 Personal history of other venous thrombosis and embolism; Z91.81 History of falling; Z90.49 Acquired absence of other specified parts of digestive tract; Z98.1 Arthrodesis status; Z95.5 Presence of coronary angioplasty implant and graft; Z80.3 Family history of malignant neoplasm of breast; Z80.1 Family history of malignant neoplasm of trachea, bronchus and lung; Z79.899 Other long term (current) drug therapy; Z79.02 Long term (current) use of antithrombotics/antiplatelets; Z71.6 Tobacco abuse counseling; Z68.34 Body mass index [BMI] 34.0-34.9, adult

== ENCOUNTER 2020-06-23 17:57 | Inpatient (IN) | payer OTHER ==
[~2020-06-23] VITALS: Ht 177.8 cm; Wt 109.1 kg
[~2020-06-23 17:57] MED LIST changes: +8 HOUR650 MG PO; +COLACE100 MG PO; +DOXYCYCLINE MO100 M1 PO; +FENOFIBRATE160 MG PO; +GLUCOTROL5 MG PO; +HYDROXYZINE HCL50 MG PO; +LIDOCAINE PAIN1 EACH T; +MAGOX 400400 MG PO; +POTASSIUM CHLO10 ME4 PO; +RANOLAZINE ER500 MG PO; +SEROQUEL50 MG PO; +TOPAMAX50 MG PO; +TRAMADOL HCL50 MG PO
[2020-06-23 18:11] VITALS: BP 100/77
[2020-06-23 18:56] LABS: BASO # 0.1 10*3/uL (0.0-0.1); BASO % 0.7 % (0.0-1.0); EOS # 0.3 10*3/uL (0.0-0.4); EOS % 2.6 % (1.0-4.0); HEMATOCRIT 43.3 % (42.0-52.0); LYMPH # 2.6 10*3/uL (1.3-4.4); LYMPH % 20.1 % (27.0-41.0); MEAN CELL VOLUME 90.8 fl (80.0-94.0); MEAN CORPUSCULAR HGB 28.5 pg (27.0-31.0); MEAN CORPUSCULAR HGB CONC 31.4 g/dl (33.0-37.0); MEAN PLATELET VOLUME 10.4 fl (9.6-12.3); MONO # 0.7 10*3/uL (0.1-1.0); MONO % 5.3 % (3.0-9.0); NEUT # 9.1 10*3/uL (2.3-7.9); NEUT % 70.8 % (47.0-73.0); PLATELET COUNT AUTOMATED 241 10*3/uL (130-400); RED BLOOD COUNT 4.77 10*6/uL (4.50-5.90); RED CELL DISTRI WIDTH 16.5 % (0-14.5); WHITE BLOOD COUNT 12.9 10*3/uL (4.8-10.8)
[2020-06-23 19:09] LABS: ACT PARTIAL THROMBO TIME 26.6 SECONDS (20.0-32.1)
[2020-06-23 19:28] LABS: ALBUMIN 3.2 gm/dl (3.1-4.5); ALKALINE PHOSPHATASE 95 U/L (45-117); BUN 19 mg/dl (7-24); CHLORIDE 108 mmol/L (98-107); CREATININE 1.32 mg/dL (0.70-1.30); LIPASE 90 U/L (73-393); POTASSIUM 3.6 mmol/L (3.5-5.1); SGOT/AST 23 IU/L (3-35); SGPT/ALT 17 U/L (12-78); SODIUM 139 mmol/L (136-145); TOTAL PROTEIN 7.5 gm/dL (6.4-8.2)
[2020-06-23 19:30] VITALS: BP 104/78
[2020-06-23 19:32] LABS: TROPONIN I < 0.015 ng/ml (<0.045)
[2020-06-23 19:51] LABS: BILIRUBIN Negative (Negative); BLOOD 1+ (Negative); CLARITY Clear (Clear); COLOR Yellow (Yellow); GLUCOSE Negative (Negative); KETONE Negative (Negative); LEUKO ESTERASE Negative (Negative); NITRITE Negative (Negative)
[2020-06-23 20:00] LABS: BACTERIA TRACE; HYALINE CAST 0-2; WBC 0-2 wbc/hpf (0-5)
[2020-06-23 20:30] VITALS: BP 101/72
[2020-06-23 20:56] VITALS: BP 111/75
[2020-06-23 23:30] VITALS: BP 124/78
[2020-06-24] VITALS (10 sets, daily range): BP systolic 112–148; BP diastolic 59–93
[2020-06-24 05:36] LABS: ALBUMIN 3.1 gm/dl (3.1-4.5); BUN 19 mg/dl (7-24); CHLORIDE 106 mmol/L (98-107); CREATININE 1.12 mg/dL (0.70-1.30); SGOT/AST 15 IU/L (3-35); SGPT/ALT 13 U/L (12-78); SODIUM 137 mmol/L (136-145); TOTAL PROTEIN 7.4 gm/dL (6.4-8.2)
[2020-06-24 05:37] LABS: ALKALINE PHOSPHATASE 95 U/L (45-117); CPK 130 U/L (39-308)
[2020-06-24 05:56] LABS: BASO % 0.4 % (0.0-1.0); LYMPH # 1.2 10*3/uL (1.3-4.4); LYMPH % 17.1 % (27.0-41.0); MEAN CELL VOLUME 90.3 fl (80.0-94.0); MEAN CORPUSCULAR HGB 28.6 pg (27.0-31.0); MEAN CORPUSCULAR HGB CONC 31.7 g/dl (33.0-37.0); MEAN PLATELET VOLUME 10.6 fl (9.6-12.3); MONO # 0.1 10*3/uL (0.1-1.0); MONO % 1.3 % (3.0-9.0); NEUT # 5.3 10*3/uL (2.3-7.9); NEUT % 79.1 % (47.0-73.0); PLATELET COUNT AUTOMATED 227 10*3/uL (130-400); RED BLOOD COUNT 4.54 10*6/uL (4.50-5.90); RED CELL DISTRI WIDTH 16.4 % (0-14.5); WHITE BLOOD COUNT 6.7 10*3/uL (4.8-10.8)
[2020-06-24] MEDS ORDERED: ELIQUIS5 M1 PO (17:40)
[2020-06-24] MEDS ORDERED: FLUTICASONE P15.8 ML NAS (17:42)
[2020-06-25] VITALS: BP 150/109
[2020-06-25 06:58] LABS: BASO % 0.2 % (0.0-1.0); HEMATOCRIT 40.5 % (42.0-52.0); LYMPH # 2.3 10*3/uL (1.3-4.4); LYMPH % 17.8 % (27.0-41.0); MEAN CELL VOLUME 91.4 fl (80.0-94.0); MEAN CORPUSCULAR HGB 28.7 pg (27.0-31.0); MEAN CORPUSCULAR HGB CONC 31.4 g/dl (33.0-37.0); MEAN PLATELET VOLUME 10.6 fl (9.6-12.3); MONO # 0.9 10*3/uL (0.1-1.0); MONO % 6.6 % (3.0-9.0); NEUT # 9.7 10*3/uL (2.3-7.9); PLATELET COUNT AUTOMATED 241 10*3/uL (130-400); RED BLOOD COUNT 4.43 10*6/uL (4.50-5.90); RED CELL DISTRI WIDTH 16.7 % (0-14.5)
[2020-06-25 07:12] LABS: BUN 20 mg/dl (7-24); CHLORIDE 106 mmol/L (98-107); SODIUM 139 mmol/L (136-145)
[2020-06-25 07:30] LABS: CPK 75 U/L (39-308)
[2020-06-25 08:00] VITALS: BP 136/88; BP 141/96
[2020-06-25 12:00] VITALS: BP 106/75
[2020-06-25 15:47] VITALS: BP 140/89
[2020-06-25 16:00] VITALS: BP 129/82
[2020-06-25 20:00] VITALS: BP 123/73
[2020-06-26] VITALS: BP 104/52
[2020-06-26 07:01] LABS: BASO % 0.1 % (0.0-1.0); EOS % 0.1 % (1.0-4.0); LYMPH # 2.6 10*3/uL (1.3-4.4); LYMPH % 22.3 % (27.0-41.0); MEAN CELL VOLUME 89.8 fl (80.0-94.0); MEAN CORPUSCULAR HGB 28.6 pg (27.0-31.0); MEAN CORPUSCULAR HGB CONC 31.9 g/dl (33.0-37.0); MEAN PLATELET VOLUME 10.5 fl (9.6-12.3); MONO # 0.9 10*3/uL (0.1-1.0); MONO % 7.7 % (3.0-9.0); NEUT # 8.2 10*3/uL (2.3-7.9); NEUT % 69.2 % (47.0-73.0); PLATELET COUNT AUTOMATED 270 10*3/uL (130-400); RED BLOOD COUNT 4.79 10*6/uL (4.50-5.90); RED CELL DISTRI WIDTH 16.6 % (0-14.5); WHITE BLOOD COUNT 11.8 10*3/uL (4.8-10.8)
[2020-06-26 07:33] LABS: BUN 23 mg/dl (7-24); CHLORIDE 107 mmol/L (98-107); CREATININE 1.05 mg/dL (0.70-1.30); POTASSIUM 4.2 mmol/L (3.5-5.1); SODIUM 138 mmol/L (136-145)
[2020-06-26 07:39] LABS: CPK 48 U/L (39-308)
[2020-06-26 08:00] VITALS: BP 126/82
[2020-06-26 12:00] VITALS: BP 121/67
[2020-06-26 16:00] VITALS: BP 117/73
== END 2020-06-26 20:10 | disposition home or self-care (01) | DRG 871 ==
LOC: ED 17:57 → 4E 21:07 → EDHOLD 21:07 → ED 21:08 → 4E 06-24 07:32 → EDHOLD 06-24 07:32 → ED 06-24 13:04 → 4E 06-24 17:55
PROVIDERS: Internal Medicine; Physician Assistant; ADMIT Internal Medicine; ATTEND Internal Medicine
DX: A41.9 Sepsis, unspecified organism (principal); J18.9 Pneumonia, unspecified organism; I50.33 Acute on chronic diastolic (congestive) heart failure; J96.01 Acute respiratory failure with hypoxia; J44.1 Chronic obstructive pulmonary disease with (acute) exacerbation; N17.9 Acute kidney failure, unspecified; I13.0 Hypertensive heart and chronic kidney disease with heart failure and stage 1 through stage 4 chronic kidney disease, or unspecified chronic kidney disease; J44.0 Chronic obstructive pulmonary disease with (acute) lower respiratory infection; Z86.718 Personal history of other venous thrombosis and embolism; R65.20 Severe sepsis without septic shock; G43.909 Migraine, unspecified, not intractable, without status migrainosus; N18.30 Chronic kidney disease, stage 3 unspecified; I71.2 Thoracic aortic aneurysm, without rupture; E55.9 Vitamin D deficiency, unspecified; F44.9 Dissociative and conversion disorder, unspecified; E11.65 Type 2 diabetes mellitus with hyperglycemia; G47.30 Sleep apnea, unspecified; I25.10 Atherosclerotic heart disease of native coronary artery without angina pectoris; E87.8 Other disorders of electrolyte and fluid balance, not elsewhere classified; G40.909 Epilepsy, unspecified, not intractable, without status epilepticus; Z20.828 Contact with and (suspected) exposure to other viral communicable diseases; F17.210 Nicotine dependence, cigarettes, uncomplicated; E78.5 Hyperlipidemia, unspecified; Q85.00 Neurofibromatosis, unspecified; Z79.4 Long term (current) use of insulin; Z86.73 Personal history of transient ischemic attack (TIA), and cerebral infarction without residual deficits; I25.2 Old myocardial infarction; Z95.5 Presence of coronary angioplasty implant and graft; Z80.1 Family history of malignant neoplasm of trachea, bronchus and lung; Z80.3 Family history of malignant neoplasm of breast; Z88.6 Allergy status to analgesic agent; Z91.041 Radiographic dye allergy status; Z91.013 Allergy to seafood; Z79.899 Other long term (current) drug therapy; Z86.711 Personal history of pulmonary embolism; Z90.49 Acquired absence of other specified parts of digestive tract; Z98.1 Arthrodesis status; Z79.1 Long term (current) use of non-steroidal anti-inflammatories (NSAID)

== ENCOUNTER 2020-09-22 17:51 | Emergency (ER) | payer OTHER ==
[~2020-09-22] VITALS: Ht 177.8 cm; Wt 104.3 kg
[~2020-09-22 17:51] MED LIST changes: +ELIQUIS5 M1 PO; +FLUTICASONE P15.8 ML NAS
== END 2020-09-22 22:47 | disposition left against medical advice (07) ==
LOC: ED 17:51
DX: S00.93XA Contusion of unspecified part of head, initial encounter (principal); R41.0 Disorientation, unspecified; H53.8 Other visual disturbances; I25.2 Old myocardial infarction; I10 Essential (primary) hypertension; E11.9 Type 2 diabetes mellitus without complications; G43.909 Migraine, unspecified, not intractable, without status migrainosus; F17.200 Nicotine dependence, unspecified, uncomplicated; Z86.73 Personal history of transient ischemic attack (TIA), and cerebral infarction without residual deficits; Z91.041 Radiographic dye allergy status; Z91.013 Allergy to seafood; Z88.6 Allergy status to analgesic agent; Z79.899 Other long term (current) drug therapy; Z79.2 Long term (current) use of antibiotics; Z79.4 Long term (current) use of insulin; Z98.890 Other specified postprocedural states; Z90.49 Acquired absence of other specified parts of digestive tract; Z95.5 Presence of coronary angioplasty implant and graft; W00.0XXA Fall on same level due to ice and snow, initial encounter; Y93.89 Activity, other specified; Y92.89 Other specified places as the place of occurrence of the external cause; Y99.8 Other external cause status

== ENCOUNTER → 2020-10-19 | Outpatient (CLI) | payer OTHER ==
[~2020-10-19] MED LIST changes: +PREDNISONE50 MG PO; +ZITHROMAX250 MG PO
== END | disposition home or self-care (01) ==
LOC: CT 08:00
PROVIDERS: ATTEND Otolaryngology
DX: R22.1 Localized swelling, mass and lump, neck (principal); M43.02 Spondylolysis, cervical region; M47.812 Spondylosis without myelopathy or radiculopathy, cervical region; J98.4 Other disorders of lung; Z98.890 Other specified postprocedural states

== ENCOUNTER 2020-11-07 11:48 | Emergency (ER) | payer OTHER ==
[~2020-11-07] VITALS: Wt 97.5 kg
[~2020-11-07 11:48] MED LIST changes: -PREDNISONE50 MG PO; -ZITHROMAX250 MG PO
[2020-11-07 13:00] LABS: BASO # 0.1 10*3/uL (0.0-0.1); BASO % 1.2 % (0.0-1.0); EOS # 0.5 10*3/uL (0.0-0.4); EOS % 5.9 % (1.0-4.0); LYMPH # 3.1 10*3/uL (1.3-4.4); MEAN CELL VOLUME 88.1 fl (80.0-94.0); MEAN CORPUSCULAR HGB 27.2 pg (27.0-31.0); MEAN CORPUSCULAR HGB CONC 30.8 g/dl (33.0-37.0); MEAN PLATELET VOLUME 10.5 fl (9.6-12.3); MONO # 0.7 10*3/uL (0.1-1.0); MONO % 8.1 % (3.0-9.0); NEUT # 3.9 10*3/uL (2.3-7.9); NEUT % 46.8 % (47.0-73.0); PLATELET COUNT AUTOMATED 261 10*3/uL (130-400); RED BLOOD COUNT 5.45 10*6/uL (4.50-5.90); RED CELL DISTRI WIDTH 16.8 % (0-14.5); WHITE BLOOD COUNT 8.3 10*3/uL (4.8-10.8)
[2020-11-07 13:17] LABS: ALBUMIN 3.1 gm/dl (3.1-4.5); ALKALINE PHOSPHATASE 99 U/L (45-117); BUN 18 mg/dl (7-24); CHLORIDE 104 mmol/L (98-107); CREATININE 1.01 mg/dL (0.70-1.30); LIPASE 64 U/L (73-393); POTASSIUM 4.1 mmol/L (3.5-5.1); SGOT/AST 17 IU/L (3-35); SGPT/ALT 23 U/L (12-78); SODIUM 134 mmol/L (136-145); TROPONIN I < 0.015 ng/ml (<0.045)
[2020-11-07 13:19] LABS: ACT PARTIAL THROMBO TIME 27.8 SECONDS (20.0-32.1)
[2020-11-07] MEDS ORDERED: ZITHROMAX250 MG PO (15:06)
[2020-11-07] MEDS ORDERED: PREDNISONE50 MG PO (15:06)
== END 2020-11-07 15:15 | disposition home or self-care (01) ==
LOC: ED 11:48
PROVIDERS: Emergency Medicine
DX: J44.1 Chronic obstructive pulmonary disease with (acute) exacerbation (principal); M54.6 Pain in thoracic spine; I10 Essential (primary) hypertension; E11.9 Type 2 diabetes mellitus without complications; G43.909 Migraine, unspecified, not intractable, without status migrainosus; I25.2 Old myocardial infarction; F17.200 Nicotine dependence, unspecified, uncomplicated; Z91.041 Radiographic dye allergy status; Z88.5 Allergy status to narcotic agent; Z91.013 Allergy to seafood; Z79.899 Other long term (current) drug therapy; Z98.890 Other specified postprocedural states; Z90.49 Acquired absence of other specified parts of digestive tract; W19.XXXA Unspecified fall, initial encounter; Y93.89 Activity, other specified; Y92.89 Other specified places as the place of occurrence of the external cause; Y99.8 Other external cause status

== ENCOUNTER 2020-11-27 15:47 | Emergency (ER) | payer OTHER ==
[~2020-11-27] VITALS: Ht 177 cm; Wt 104.3 kg
[~2020-11-27 15:47] MED LIST changes: +PREDNISONE50 MG PO; +ZITHROMAX250 MG PO
== END 2020-11-27 21:30 | disposition home or self-care (01) ==
LOC: ED 15:47
DX: S29.012A Strain of muscle and tendon of back wall of thorax, initial encounter (principal); S46.911A Strain of unspecified muscle, fascia and tendon at shoulder and upper arm level, right arm, initial encounter; S80.01XA Contusion of right knee, initial encounter; F17.210 Nicotine dependence, cigarettes, uncomplicated; Z91.041 Radiographic dye allergy status; Z88.6 Allergy status to analgesic agent; Z91.013 Allergy to seafood; Z79.899 Other long term (current) drug therapy; Z79.4 Long term (current) use of insulin; Z79.2 Long term (current) use of antibiotics; Z98.890 Other specified postprocedural states; Z90.49 Acquired absence of other specified parts of digestive tract; V43.52XA Car driver injured in collision with other type car in traffic accident, initial encounter; Y93.I9 Activity, other involving external motion; Y92.488 Other paved roadways as the place of occurrence of the external cause; Y99.8 Other external cause status

== ENCOUNTER 2020-12-21 13:56 | Emergency (ER) | payer OTHER ==
[~2020-12-21] VITALS: Wt 108.9 kg
[~2020-12-21 13:56] MED LIST changes: +BACLOFEN5 MG PO; +ZETIA10 MG PO
[2020-12-21 14:25] LABS: BASO # 0.1 10*3/uL (0.0-0.1); BASO % 0.5 % (0.0-1.0); EOS # 0.2 10*3/uL (0.0-0.4); EOS % 1.4 % (1.0-4.0); LYMPH # 3.2 10*3/uL (1.3-4.4); LYMPH % 27.4 % (27.0-41.0); MEAN CORPUSCULAR HGB 28.3 pg (27.0-31.0); MEAN CORPUSCULAR HGB CONC 31.7 g/dl (33.0-37.0); MEAN PLATELET VOLUME 10.5 fl (9.6-12.3); MONO # 0.9 10*3/uL (0.1-1.0); MONO % 7.8 % (3.0-9.0); NEUT # 7.3 10*3/uL (2.3-7.9); NEUT % 62.1 % (47.0-73.0); PLATELET COUNT AUTOMATED 204 10*3/uL (130-400); RED BLOOD COUNT 4.59 10*6/uL (4.50-5.90); RED CELL DISTRI WIDTH 16.7 % (0-14.5); WHITE BLOOD COUNT 11.8 10*3/uL (4.8-10.8)
[2020-12-21 14:35] LABS: MEAN CELL VOLUME 89.3 fl (80.0-94.0)
[2020-12-21 14:37] LABS: ACT PARTIAL THROMBO TIME 25.1 SECONDS (20.0-32.1)
[2020-12-21 14:45] LABS: ALBUMIN 2.8 gm/dl (3.1-4.5); BUN 21 mg/dl (7-24); CHLORIDE 110 mmol/L (98-107); CREATININE 0.98 mg/dL (0.70-1.30); POTASSIUM 3.9 mmol/L (3.5-5.1); SGOT/AST 19 IU/L (3-35); SGPT/ALT 20 U/L (12-78); SODIUM 139 mmol/L (136-145)
[2020-12-21 14:49] LABS: ALKALINE PHOSPHATASE 82 U/L (45-117); TOTAL PROTEIN 6.9 gm/dL (6.4-8.2)
[2020-12-21 14:50] LABS: TROPONIN I < 0.015 ng/ml (<0.045)
== END 2020-12-21 17:59 | disposition home or self-care (01) ==
LOC: ED 13:56
PROVIDERS: Emergency Medicine
DX: J44.9 Chronic obstructive pulmonary disease, unspecified (principal); R07.9 Chest pain, unspecified; I25.10 Atherosclerotic heart disease of native coronary artery without angina pectoris; I12.9 Hypertensive chronic kidney disease with stage 1 through stage 4 chronic kidney disease, or unspecified chronic kidney disease; E11.22 Type 2 diabetes mellitus with diabetic chronic kidney disease; N18.30 Chronic kidney disease, stage 3 unspecified; K21.9 Gastro-esophageal reflux disease without esophagitis; E78.5 Hyperlipidemia, unspecified; G43.909 Migraine, unspecified, not intractable, without status migrainosus; Z91.041 Radiographic dye allergy status; Z91.013 Allergy to seafood; Z88.5 Allergy status to narcotic agent; Z79.899 Other long term (current) drug therapy; Z98.890 Other specified postprocedural states; Z90.49 Acquired absence of other specified parts of digestive tract

== ENCOUNTER 2021-03-08 15:45 | Inpatient (IN) | payer OTHER ==
[~2021-03-08] VITALS: Ht 177.8 cm; Wt 109.3 kg
[~2021-03-08 15:45] MED LIST changes: +CYMBALTA30 MG PO; -CYMBALTA60 MG PO
[2021-03-08 15:49] VITALS: BP 110/88
[2021-03-08 16:15] LABS: BASO # 0.1 10*3/uL (0.0-0.1); BASO % 0.8 % (0.0-1.0); EOS # 0.3 10*3/uL (0.0-0.4); EOS % 2.4 % (1.0-4.0); HEMATOCRIT 47.8 % (42.0-52.0); LYMPH # 3.4 10*3/uL (1.3-4.4); LYMPH % 27.5 % (27.0-41.0); MEAN CELL VOLUME 90.2 fl (80.0-94.0); MEAN CORPUSCULAR HGB 28.9 pg (27.0-31.0); MEAN PLATELET VOLUME 9.7 fl (9.6-12.3); MONO # 1.1 10*3/uL (0.1-1.0); NEUT # 7.3 10*3/uL (2.3-7.9); NEUT % 59.9 % (47.0-73.0); PLATELET COUNT AUTOMATED 335 10*3/uL (130-400); RED CELL DISTRI WIDTH 15.6 % (0-14.5); WHITE BLOOD COUNT 12.2 10*3/uL (4.8-10.8)
[2021-03-08 16:31] LABS: ALBUMIN 3.3 gm/dl (3.1-4.5); ALKALINE PHOSPHATASE 92 U/L (45-117); BUN 10 mg/dl (7-24); CHLORIDE 104 mmol/L (98-107); CREATININE 1.06 mg/dL (0.70-1.30); POTASSIUM 4.1 mmol/L (3.5-5.1); SGOT/AST 16 IU/L (3-35); SGPT/ALT 15 U/L (12-78); SODIUM 132 mmol/L (136-145); TOTAL PROTEIN 8.2 gm/dL (6.4-8.2)
[2021-03-08 16:32] LABS: TROPONIN I < 0.015 ng/ml (<0.045)
[2021-03-08 17:38] VITALS: BP 142/98
[2021-03-08 19:00] VITALS: BP 138/82
[2021-03-08 21:00] VITALS: BP 121/69
[2021-03-08 22:35] VITALS: BP 134/77
[2021-03-09 06:52] LABS: BASO % 0.3 % (0.0-1.0); HEMATOCRIT 45.3 % (42.0-52.0); LYMPH # 1.2 10*3/uL (1.3-4.4); LYMPH % 17.6 % (27.0-41.0); MEAN CELL VOLUME 91.5 fl (80.0-94.0); MEAN CORPUSCULAR HGB 28.9 pg (27.0-31.0); MEAN CORPUSCULAR HGB CONC 31.6 g/dl (33.0-37.0); MEAN PLATELET VOLUME 9.9 fl (9.6-12.3); MONO # 0.1 10*3/uL (0.1-1.0); MONO % 1.4 % (3.0-9.0); NEUT # 5.6 10*3/uL (2.3-7.9); PLATELET COUNT AUTOMATED 303 10*3/uL (130-400); RED BLOOD COUNT 4.95 10*6/uL (4.50-5.90); RED CELL DISTRI WIDTH 15.6 % (0-14.5); WHITE BLOOD COUNT 6.9 10*3/uL (4.8-10.8)
[2021-03-09 07:09] LABS: CHLORIDE 104 mmol/L (98-107); POTASSIUM 4.1 mmol/L (3.5-5.1); SODIUM 132 mmol/L (136-145)
[2021-03-09 07:30] LABS: ALBUMIN 3.1 gm/dl (3.1-4.5); ALKALINE PHOSPHATASE 89 U/L (45-117); BUN 17 mg/dl (7-24); FREE T4 0.94 ng/dl (0.76-1.46); SGOT/AST 14 IU/L (3-35); SGPT/ALT 12 U/L (12-78); THYROID STIM HORMONE (HS) 0.293 uIU/ml (0.358-4.75); TOTAL PROTEIN 7.9 gm/dL (6.4-8.2)
[2021-03-09 07:59] VITALS: BP 136/75
[2021-03-09 11:06] VITALS: BP 123/82
[2021-03-09 16:54] VITALS: BP 103/84
[2021-03-09 17:42] LABS: ABG BASE EXCESS -5.2 mmol/L (-2.0-2.0); ARTERIAL BLOOD GAS PH 7.42 (7.35-7.45); ARTERIAL BLOOD GAS PO2 75.6 (80-90)
[2021-03-09 20:00] VITALS: BP 129/74
[2021-03-09 21:48] LABS: ALBUMIN 2.9 gm/dl (3.1-4.5); ALKALINE PHOSPHATASE 84 U/L (45-117); BUN 22 mg/dl (7-24); CHLORIDE 106 mmol/L (98-107); CREATININE 1.34 mg/dL (0.70-1.30); POTASSIUM 4.2 mmol/L (3.5-5.1); SGOT/AST 14 IU/L (3-35); SGPT/ALT 14 U/L (12-78); SODIUM 133 mmol/L (136-145); TOTAL PROTEIN 7.2 gm/dL (6.4-8.2)
[2021-03-10] VITALS (39 sets, daily range): BP systolic 92–146; BP diastolic 42–107
[2021-03-10] MEDS ORDERED: MORPHINE SULFAT15 M7 PO (09:53)
[2021-03-10 10:21] LABS: ALBUMIN 3.1 gm/dl (3.1-4.5); ALKALINE PHOSPHATASE 82 U/L (45-117); BUN 24 mg/dl (7-24); CHLORIDE 105 mmol/L (98-107); CREATININE 1.19 mg/dL (0.70-1.30); POTASSIUM 4.1 mmol/L (3.5-5.1); SGOT/AST 12 IU/L (3-35); SGPT/ALT 16 U/L (12-78); SODIUM 135 mmol/L (136-145); TOTAL PROTEIN 7.6 gm/dL (6.4-8.2)
[2021-03-10 13:15] LABS: BASO % 0.1 % (0.0-1.0); HEMATOCRIT 44.8 % (42.0-52.0); LYMPH # 1.6 10*3/uL (1.3-4.4); LYMPH % 8.5 % (27.0-41.0); MEAN CELL VOLUME 94.5 fl (80.0-94.0); MEAN CORPUSCULAR HGB 29.1 pg (27.0-31.0); MEAN CORPUSCULAR HGB CONC 30.8 g/dl (33.0-37.0); MEAN PLATELET VOLUME 10.2 fl (9.6-12.3); MONO # 0.9 10*3/uL (0.1-1.0); MONO % 4.7 % (3.0-9.0); NEUT % 85.9 % (47.0-73.0); PLATELET COUNT AUTOMATED 276 10*3/uL (130-400); RED BLOOD COUNT 4.74 10*6/uL (4.50-5.90); WHITE BLOOD COUNT 18.6 10*3/uL (4.8-10.8)
[2021-03-10 13:33] LABS: ALBUMIN 3.1 gm/dl (3.1-4.5); ALKALINE PHOSPHATASE 83 U/L (45-117); BUN 25 mg/dl (7-24); CHLORIDE 106 mmol/L (98-107); CREATININE 1.27 mg/dL (0.70-1.30); POTASSIUM 4.3 mmol/L (3.5-5.1); SGOT/AST 19 IU/L (3-35); SGPT/ALT 16 U/L (12-78); SODIUM 134 mmol/L (136-145); TOTAL PROTEIN 7.6 gm/dL (6.4-8.2)
[2021-03-10 13:38] LABS: TROPONIN I < 0.015 ng/ml (<0.045)
[2021-03-10 14:30] LABS: ARTERIAL BLOOD GAS PH 7.401 (7.35-7.45)
[2021-03-10 14:31] LABS: ABG BASE EXCESS -5.8 mmol/L (-2.0-2.0)
[2021-03-10 15:05] LABS: ACT PARTIAL THROMBO TIME 24.8 SECONDS (20.0-32.1)
[2021-03-11] VITALS (44 sets, daily range): BP systolic 94–153; BP diastolic 31–98
[2021-03-11 05:14] LABS: BUN 26 mg/dl (7-24); CHLORIDE 108 mmol/L (98-107); CREATININE 1.11 mg/dL (0.70-1.30); POTASSIUM 4.3 mmol/L (3.5-5.1); SODIUM 138 mmol/L (136-145)
[2021-03-11] MEDS ORDERED: PROVENTIL HFA6.7 GM INH (10:58)
[2021-03-11] MEDS ORDERED: HYDROCODONE-AC1 EAC1 PO (11:17)
[2021-03-11] MEDS ORDERED: 24 HOUR ALLER15.8 ML NAS (11:22)
[2021-03-11] MEDS ORDERED: METOPROLOL SUCC25 M2 PO (12:10)
[2021-03-12] VITALS: BP 119/73
[2021-03-12 04:02] VITALS: BP 128/84
[2021-03-12 06:34] LABS: ALBUMIN 2.9 gm/dl (3.1-4.5); ALKALINE PHOSPHATASE 71 U/L (45-117); BUN 31 mg/dl (7-24); CHLORIDE 107 mmol/L (98-107); CREATININE 1.15 mg/dL (0.70-1.30); POTASSIUM 4.4 mmol/L (3.5-5.1); SGOT/AST 15 IU/L (3-35); SGPT/ALT 17 U/L (12-78); SODIUM 135 mmol/L (136-145)
[2021-03-12 06:36] LABS: BASO % 0.1 % (0.0-1.0); HEMATOCRIT 38.7 % (42.0-52.0); LYMPH # 1.2 10*3/uL (1.3-4.4); LYMPH % 9.2 % (27.0-41.0); MEAN CORPUSCULAR HGB 29.3 pg (27.0-31.0); MEAN CORPUSCULAR HGB CONC 31.5 g/dl (33.0-37.0); MEAN PLATELET VOLUME 11.3 fl (9.6-12.3); MONO # 0.7 10*3/uL (0.1-1.0); MONO % 5.4 % (3.0-9.0); NEUT # 11.3 10*3/uL (2.3-7.9); NEUT % 84.3 % (47.0-73.0); PLATELET COUNT AUTOMATED 316 10*3/uL (130-400); RED BLOOD COUNT 4.16 10*6/uL (4.50-5.90); RED CELL DISTRI WIDTH 16.1 % (0-14.5); WHITE BLOOD COUNT 13.4 10*3/uL (4.8-10.8)
[2021-03-12 08:00] VITALS: BP 131/86
[2021-04-08] MEDS ORDERED: IMDUR SA30 MG PO (13:27)
== END 2021-03-12 11:14 | disposition short-term general hospital (02) | DRG 190 ==
LOC: ED 15:45 → EDHOLD 18:30 → 5E 18:30 → ICCU 03-10 14:10
PROVIDERS: Emergency Medicine; Family Medicine; Internal Medicine; Internal Medicine Cardiovascular Disease; Internal Medicine Critical Care Medicine; ADMIT Student in an Organized Health Care Education/Training Program; ATTEND Student in an Organized Health Care Education/Training Program
PROC: 5A09357 Assistance with Respiratory Ventilation, Less than 24 Consecutive Hours, Continuous Positive Airway Pressure (ICD-10-PCS; principal; 2021-03-10)
PROC: 5A09357 Assistance with Respiratory Ventilation, Less than 24 Consecutive Hours, Continuous Positive Airway Pressure (ICD-10-PCS; 2021-03-11)
PROC: 5A09357 Assistance with Respiratory Ventilation, Less than 24 Consecutive Hours, Continuous Positive Airway Pressure (ICD-10-PCS; 2021-03-12)
DX: J44.1 Chronic obstructive pulmonary disease with (acute) exacerbation (principal); J96.90 Respiratory failure, unspecified, unspecified whether with hypoxia or hypercapnia; E87.1 Hypo-osmolality and hyponatremia; I47.2 Ventricular tachycardia; I13.0 Hypertensive heart and chronic kidney disease with heart failure and stage 1 through stage 4 chronic kidney disease, or unspecified chronic kidney disease; M54.40 Lumbago with sciatica, unspecified side; E83.41 Hypermagnesemia; G40.909 Epilepsy, unspecified, not intractable, without status epilepticus; I25.10 Atherosclerotic heart disease of native coronary artery without angina pectoris; G47.30 Sleep apnea, unspecified; K21.9 Gastro-esophageal reflux disease without esophagitis; N18.30 Chronic kidney disease, stage 3 unspecified; F44.9 Dissociative and conversion disorder, unspecified; Q85.00 Neurofibromatosis, unspecified; G43.909 Migraine, unspecified, not intractable, without status migrainosus; E66.9 Obesity, unspecified; F17.200 Nicotine dependence, unspecified, uncomplicated; Z91.041 Radiographic dye allergy status; E11.22 Type 2 diabetes mellitus with diabetic chronic kidney disease; I50.9 Heart failure, unspecified; Z88.6 Allergy status to analgesic agent; Z90.49 Acquired absence of other specified parts of digestive tract; Z79.51 Long term (current) use of inhaled steroids; Z86.73 Personal history of transient ischemic attack (TIA), and cerebral infarction without residual deficits; Z79.899 Other long term (current) drug therapy; Z88.8 Allergy status to other drugs, medicaments and biological substances; Z68.37 Body mass index [BMI] 37.0-37.9, adult

== ENCOUNTER 2021-04-03 15:20 | Inpatient (IN) | payer OTHER ==
[~2021-04-03] VITALS: Ht 177.8 cm; Wt 114.0 kg
[~2021-04-03 15:20] MED LIST changes: +24 HOUR ALLER15.8 ML NAS; +HYDROCODONE-AC1 EAC1 PO; +METOPROLOL SUCC25 M2 PO; +MORPHINE SULFAT15 M7 PO; +PROVENTIL HFA6.7 GM INH
[2021-04-03 15:27] VITALS: BP 134/87
[2021-04-03 17:35] LABS: BASO # 0.1 10*3/uL (0.0-0.1); BASO % 0.7 % (0.0-1.0); EOS # 0.4 10*3/uL (0.0-0.4); EOS % 4.3 % (1.0-4.0); HEMATOCRIT 44.7 % (42.0-52.0); LYMPH # 1.9 10*3/uL (1.3-4.4); LYMPH % 19.9 % (27.0-41.0); MEAN CELL VOLUME 92.4 fl (80.0-94.0); MEAN CORPUSCULAR HGB 28.5 pg (27.0-31.0); MEAN CORPUSCULAR HGB CONC 30.9 g/dl (33.0-37.0); MEAN PLATELET VOLUME 10.2 fl (9.6-12.3); MONO # 0.8 10*3/uL (0.1-1.0); MONO % 8.4 % (3.0-9.0); NEUT # 6.2 10*3/uL (2.3-7.9); PLATELET COUNT AUTOMATED 325 10*3/uL (130-400); RED BLOOD COUNT 4.84 10*6/uL (4.50-5.90); RED CELL DISTRI WIDTH 15.4 % (0-14.5); WHITE BLOOD COUNT 9.5 10*3/uL (4.8-10.8)
[2021-04-03 17:49] VITALS: BP 129/78
[2021-04-03 17:55] LABS: ALBUMIN 2.7 gm/dl (3.1-4.5); ALKALINE PHOSPHATASE 116 U/L (45-117); BUN 5 mg/dl (7-24); CHLORIDE 105 mmol/L (98-107); CREATININE 0.84 mg/dL (0.70-1.30); POTASSIUM 3.9 mmol/L (3.5-5.1); SGOT/AST 21 IU/L (3-35); SGPT/ALT 20 U/L (12-78); SODIUM 136 mmol/L (136-145); TOTAL PROTEIN 7.1 gm/dL (6.4-8.2)
[2021-04-03 17:58] LABS: TROPONIN I < 0.015 ng/ml (<0.045)
[2021-04-03 18:32] VITALS: BP 115/80
[2021-04-03 20:35] VITALS: BP 125/68
[2021-04-03 21:55] VITALS: BP 120/76
[2021-04-03 23:55] VITALS: BP 118/72
[2021-04-04] VITALS (10 sets, daily range): BP systolic 110–150; BP diastolic 58–92
[2021-04-04] MEDS ORDERED: ZETIA10 MG PO (00:09)
[2021-04-04] MEDS ORDERED: ALLERGY RELIE15.8 ML INH (00:29)
[2021-04-04] MEDS ORDERED: HYDROCODONE-AC1 EACH PO (00:32)
[2021-04-04] MEDS ORDERED: METOPROLOL SUCC25 M2 PO (00:34)
[2021-04-04 08:57] LABS: BASO % 0.4 % (0.0-1.0); HEMATOCRIT 41.5 % (42.0-52.0); LYMPH # 1.3 10*3/uL (1.3-4.4); LYMPH % 22.6 % (27.0-41.0); MEAN CELL VOLUME 90.8 fl (80.0-94.0); MEAN CORPUSCULAR HGB 29.1 pg (27.0-31.0); MEAN PLATELET VOLUME 9.8 fl (9.6-12.3); MONO # 0.3 10*3/uL (0.1-1.0); MONO % 4.7 % (3.0-9.0); NEUT # 4.1 10*3/uL (2.3-7.9); NEUT % 71.4 % (47.0-73.0); PLATELET COUNT AUTOMATED 348 10*3/uL (130-400); RED BLOOD COUNT 4.57 10*6/uL (4.50-5.90); RED CELL DISTRI WIDTH 15.2 % (0-14.5); WHITE BLOOD COUNT 5.7 10*3/uL (4.8-10.8)
[2021-04-04 09:14] LABS: ALBUMIN 2.5 gm/dl (3.1-4.5); ALKALINE PHOSPHATASE 118 U/L (45-117); BUN 8 mg/dl (7-24); CHLORIDE 105 mmol/L (98-107); FREE T4 0.88 ng/dl (0.76-1.46); POTASSIUM 3.9 mmol/L (3.5-5.1); SGOT/AST 17 IU/L (3-35); SGPT/ALT 18 U/L (12-78); SODIUM 136 mmol/L (136-145); TOTAL PROTEIN 7.1 gm/dL (6.4-8.2)
[2021-04-04 09:19] LABS: THYROID STIM HORMONE (HS) 0.379 uIU/ml (0.358-4.75)
[2021-04-04 19:33] LABS: BUN 13 mg/dl (7-24); CHLORIDE 104 mmol/L (98-107); CREATININE 1.12 mg/dL (0.70-1.30); POTASSIUM 4.2 mmol/L (3.5-5.1); SODIUM 136 mmol/L (136-145)
[2021-04-05 08:00] VITALS: BP 124/80
[2021-04-05 09:17] LABS: BUN 15 mg/dl (7-24); CHLORIDE 106 mmol/L (98-107); CREATININE 0.98 mg/dL (0.70-1.30); POTASSIUM 4.3 mmol/L (3.5-5.1); SODIUM 138 mmol/L (136-145)
[2021-04-05 11:37] VITALS: BP 118/73
[2021-04-05 17:18] VITALS: BP 121/73
[2021-04-05 20:00] VITALS: BP 103/51
[2021-04-06] VITALS: BP 123/70
[2021-04-06 06:43] LABS: BASO % 0.2 % (0.0-1.0); EOS % 0.1 % (1.0-4.0); HEMATOCRIT 39.1 % (42.0-52.0); LYMPH # 2.9 10*3/uL (1.3-4.4); LYMPH % 22.5 % (27.0-41.0); MEAN CELL VOLUME 92.7 fl (80.0-94.0); MEAN CORPUSCULAR HGB 28.9 pg (27.0-31.0); MEAN CORPUSCULAR HGB CONC 31.2 g/dl (33.0-37.0); MEAN PLATELET VOLUME 10.1 fl (9.6-12.3); MONO # 1.1 10*3/uL (0.1-1.0); MONO % 8.2 % (3.0-9.0); NEUT # 8.9 10*3/uL (2.3-7.9); PLATELET COUNT AUTOMATED 321 10*3/uL (130-400); RED BLOOD COUNT 4.22 10*6/uL (4.50-5.90); RED CELL DISTRI WIDTH 15.6 % (0-14.5); WHITE BLOOD COUNT 13.1 10*3/uL (4.8-10.8)
[2021-04-06 06:58] LABS: BUN 22 mg/dl (7-24); CHLORIDE 104 mmol/L (98-107); POTASSIUM 4.3 mmol/L (3.5-5.1); SODIUM 137 mmol/L (136-145)
[2021-04-06 08:00] VITALS: BP 133/83
[2021-04-06 12:00] VITALS: BP 100/50
[2021-04-06 16:00] VITALS: BP 111/67
[2021-04-06 20:00] VITALS: BP 97/66
[2021-04-07] VITALS: BP 133/78
[2021-04-07 08:00] VITALS: BP 142/73
[2021-04-07] MEDS ORDERED: LEVOFLOXACIN750 M2 PO (11:17)
[2021-04-07] MEDS ORDERED: ANORO ELLIPTA1 EACH INH (11:17)
[2021-04-07] MEDS ORDERED: PREDNISONE10 MG PO (11:17)
[2021-04-08] MEDS ORDERED: IMDUR SA30 MG PO (13:27)
== END 2021-04-07 11:28 | disposition home health service (06) | DRG 871 ==
LOC: ED 15:20 → EDHOLD 19:43 → 4E 19:43 → 5E 19:43 → EDHOLD 20:26 → 5E 04-04 10:00 → 4E 04-04 23:02
PROVIDERS: Emergency Medicine; Internal Medicine; ADMIT Internal Medicine; ATTEND Internal Medicine
DX: A41.9 Sepsis, unspecified organism (principal); J15.6 Pneumonia due to other Gram-negative bacteria; J44.1 Chronic obstructive pulmonary disease with (acute) exacerbation; E87.2 Acidosis; E44.0 Moderate protein-calorie malnutrition; I50.32 Chronic diastolic (congestive) heart failure; I13.0 Hypertensive heart and chronic kidney disease with heart failure and stage 1 through stage 4 chronic kidney disease, or unspecified chronic kidney disease; J96.11 Chronic respiratory failure with hypoxia; F44.9 Dissociative and conversion disorder, unspecified; G47.30 Sleep apnea, unspecified; I71.2 Thoracic aortic aneurysm, without rupture; G40.909 Epilepsy, unspecified, not intractable, without status epilepticus; Z95.5 Presence of coronary angioplasty implant and graft; I48.91 Unspecified atrial fibrillation; N18.30 Chronic kidney disease, stage 3 unspecified; K21.9 Gastro-esophageal reflux disease without esophagitis; E78.5 Hyperlipidemia, unspecified; R65.20 Severe sepsis without septic shock; D64.9 Anemia, unspecified; E66.9 Obesity, unspecified; E11.65 Type 2 diabetes mellitus with hyperglycemia; E11.22 Type 2 diabetes mellitus with diabetic chronic kidney disease; E55.9 Vitamin D deficiency, unspecified; I25.119 Atherosclerotic heart disease of native coronary artery with unspecified angina pectoris; J20.9 Acute bronchitis, unspecified; Z20.822 Contact with and (suspected) exposure to COVID-19; Q85.00 Neurofibromatosis, unspecified; Z86.718 Personal history of other venous thrombosis and embolism; Z86.711 Personal history of pulmonary embolism; Z88.6 Allergy status to analgesic agent; Z88.3 Allergy status to other anti-infective agents; Z91.013 Allergy to seafood; Z86.73 Personal history of transient ischemic attack (TIA), and cerebral infarction without residual deficits; I25.2 Old myocardial infarction; Z90.3 Acquired absence of stomach [part of]; Z90.49 Acquired absence of other specified parts of digestive tract; Z80.1 Family history of malignant neoplasm of trachea, bronchus and lung; Z80.3 Family history of malignant neoplasm of breast; Z79.4 Long term (current) use of insulin; Z68.36 Body mass index [BMI] 36.0-36.9, adult

== ENCOUNTER 2021-06-20 10:55 | Emergency (ER) | payer OTHER ==
[~2021-06-20 10:55] MED LIST changes: +ALLERGY RELIE15.8 ML INH; +ANORO ELLIPTA1 EACH INH; +HYDROCODONE-AC1 EACH PO; +LEVOFLOXACIN750 M2 PO
[2021-06-20 12:53] LABS: BASO # 0.1 10*3/uL (0.0-0.1); EOS # 0.5 10*3/uL (0.0-0.4); EOS % 5.1 % (1.0-4.0); HEMATOCRIT 43.4 % (42.0-52.0); LYMPH # 2.5 10*3/uL (1.3-4.4); LYMPH % 25.6 % (27.0-41.0); MEAN CELL VOLUME 93.9 fl (80.0-94.0); MEAN CORPUSCULAR HGB 28.6 pg (27.0-31.0); MEAN CORPUSCULAR HGB CONC 30.4 g/dl (33.0-37.0); MEAN PLATELET VOLUME 10.3 fl (9.6-12.3); MONO # 0.9 10*3/uL (0.1-1.0); MONO % 9.7 % (3.0-9.0); NEUT # 5.6 10*3/uL (2.3-7.9); NEUT % 58.2 % (47.0-73.0); PLATELET COUNT AUTOMATED 280 10*3/uL (130-400); RED BLOOD COUNT 4.62 10*6/uL (4.50-5.90); RED CELL DISTRI WIDTH 15.8 % (0-14.5); WHITE BLOOD COUNT 9.6 10*3/uL (4.8-10.8)
[2021-06-20 13:08] LABS: ALBUMIN 2.6 gm/dl (3.1-4.5); ALKALINE PHOSPHATASE 91 U/L (45-117); BUN 11 mg/dl (7-24); CHLORIDE 108 mmol/L (98-107); CREATININE 0.86 mg/dL (0.70-1.30); POTASSIUM 4.3 mmol/L (3.5-5.1); SGOT/AST 18 IU/L (3-35); SGPT/ALT 13 U/L (12-78); SODIUM 137 mmol/L (136-145); TOTAL PROTEIN 7.3 gm/dL (6.4-8.2)
== END 2021-06-20 17:05 | disposition home or self-care (01) ==
LOC: ED 10:55
PROVIDERS: Emergency Medicine
DX: M48.061 Spinal stenosis, lumbar region without neurogenic claudication (principal); I25.10 Atherosclerotic heart disease of native coronary artery without angina pectoris; K21.9 Gastro-esophageal reflux disease without esophagitis; G43.909 Migraine, unspecified, not intractable, without status migrainosus; J44.9 Chronic obstructive pulmonary disease, unspecified; I25.2 Old myocardial infarction; I13.0 Hypertensive heart and chronic kidney disease with heart failure and stage 1 through stage 4 chronic kidney disease, or unspecified chronic kidney disease; E11.22 Type 2 diabetes mellitus with diabetic chronic kidney disease; N18.4 Chronic kidney disease, stage 4 (severe); E78.5 Hyperlipidemia, unspecified; F17.200 Nicotine dependence, unspecified, uncomplicated; Z91.041 Radiographic dye allergy status; Z88.6 Allergy status to analgesic agent; Z91.013 Allergy to seafood; Z79.899 Other long term (current) drug therapy

== ENCOUNTER 2021-07-13 16:50 | Emergency (ER) | payer OTHER | END 2021-07-13 20:10 | disposition home or self-care (01) | LOC: ED 16:50 | DX: G89.29 Other chronic pain (principal); M54.50 Low back pain, unspecified; Z91.041 Radiographic dye allergy status; Z88.6 Allergy status to analgesic agent; Z91.013 Allergy to seafood; Z79.899 Other long term (current) drug therapy ==

== ENCOUNTER 2021-08-20 09:37 | Inpatient (IN) | payer OTHER ==
[~2021-08-20] VITALS: Ht 177.8 cm; Wt 113.4 kg
[~2021-08-20 09:37] MED LIST changes: +AMOX-CLAV 500-1 EACH PO; +DEXAMETHASONE2 MG PO
[2021-08-20 09:50] VITALS: BP 87/63
[2021-08-20 10:08] LABS: BASO # 0.1 10*3/uL (0.0-0.1); BASO % 0.7 % (0.0-1.0); EOS # 0.4 10*3/uL (0.0-0.4); EOS % 3.2 % (1.0-4.0); HEMATOCRIT 42.6 % (42.0-52.0); LYMPH # 3.2 10*3/uL (1.3-4.4); LYMPH % 25.9 % (27.0-41.0); MEAN CELL VOLUME 89.1 fl (80.0-94.0); MEAN CORPUSCULAR HGB 27.6 pg (27.0-31.0); MEAN PLATELET VOLUME 9.9 fl (9.6-12.3); MONO # 0.9 10*3/uL (0.1-1.0); NEUT # 7.8 10*3/uL (2.3-7.9); NEUT % 62.7 % (47.0-73.0); PLATELET COUNT AUTOMATED 285 10*3/uL (130-400); RED BLOOD COUNT 4.78 10*6/uL (4.50-5.90); RED CELL DISTRI WIDTH 15.6 % (0-14.5); WHITE BLOOD COUNT 12.5 10*3/uL (4.8-10.8)
[2021-08-20 10:26] LABS: ALBUMIN 2.7 gm/dl (3.1-4.5); ALKALINE PHOSPHATASE 82 U/L (45-117); BUN 12 mg/dl (7-24); CHLORIDE 108 mmol/L (98-107); CREATININE 0.91 mg/dL (0.70-1.30); POTASSIUM 3.9 mmol/L (3.5-5.1); SGOT/AST 13 IU/L (3-35); SGPT/ALT 14 U/L (12-78); SODIUM 136 mmol/L (136-145); TOTAL PROTEIN 7.3 gm/dL (6.4-8.2)
[2021-08-20 13:48] VITALS: BP 148/84
[2021-08-20] MEDS ORDERED: GABAPENTIN400 MG PO (14:08)
[2021-08-20] MEDS ORDERED: PERCOCET 10-321 EACH PO (14:09)
[2021-08-20 19:24] VITALS: BP 117/71
[2021-08-21 00:45] VITALS: BP 130/88
[2021-08-21] MEDS ORDERED: FUROSEMIDE40 MG PO (01:07)
[2021-08-21] MEDS ORDERED: PROAIR HFA8.5 GM INH (01:08)
[2021-08-21] MEDS ORDERED: AMLODIPINE BESYL5 MG PO (01:10)
[2021-08-21] MEDS ORDERED: FENOFIBRATE54 MG PO (01:16)
[2021-08-21] MEDS ORDERED: BACLOFEN5 MG PO (01:16)
[2021-08-21] MEDS ORDERED: LATU40TA1 PO (01:17)
[2021-08-21] MEDS ORDERED: ATORVASTATIN CA80 M1 PO (01:20)
[2021-08-21 06:27] LABS: BASO % 0.1 % (0.0-1.0); HEMATOCRIT 42.6 % (42.0-52.0); LYMPH # 1.7 10*3/uL (1.3-4.4); LYMPH % 12.1 % (27.0-41.0); MEAN CELL VOLUME 87.1 fl (80.0-94.0); MEAN CORPUSCULAR HGB 27.8 pg (27.0-31.0); MEAN CORPUSCULAR HGB CONC 31.9 g/dl (33.0-37.0); MONO # 0.4 10*3/uL (0.1-1.0); MONO % 2.6 % (3.0-9.0); NEUT # 11.6 10*3/uL (2.3-7.9); NEUT % 84.6 % (47.0-73.0); PLATELET COUNT AUTOMATED 295 10*3/uL (130-400); RED BLOOD COUNT 4.89 10*6/uL (4.50-5.90); RED CELL DISTRI WIDTH 15.8 % (0-14.5); WHITE BLOOD COUNT 13.7 10*3/uL (4.8-10.8)
[2021-08-21 06:48] LABS: BUN 21 mg/dl (7-24); CHLORIDE 100 mmol/L (98-107); SODIUM 132 mmol/L (136-145)
[2021-08-21 06:56] LABS: ALKALINE PHOSPHATASE 84 U/L (45-117); CHOLESTEROL 172 mg/dL (<200); CREATININE 1.07 mg/dL (0.70-1.30); FREE T4 0.89 ng/dl (0.76-1.46); LDL CHOLESTEROL 92 mg/dL (9-159); SGOT/AST 10 IU/L (3-35); SGPT/ALT 14 U/L (12-78); THYROID STIM HORMONE (HS) 0.191 uIU/ml (0.358-4.75); TOTAL PROTEIN 7.8 gm/dL (6.4-8.2); TRIGLYCERIDES 147 mg/dl (<150)
[2021-08-21 07:49] LABS: VITAMIN D, 25-HYDROXY 19.3 ng/mL (30-100)
[2021-08-21 08:00] VITALS: BP 119/86
[2021-08-21 12:00] VITALS: BP 124/107
[2021-08-21 16:00] VITALS: BP 131/69
[2021-08-21 20:00] VITALS: BP 148/80; BP 172/108
[2021-08-22] VITALS: BP 102/47; BP 112/70
[2021-08-22 06:46] LABS: BASO % 0.1 % (0.0-1.0); HEMATOCRIT 42.8 % (42.0-52.0); LYMPH # 1.7 10*3/uL (1.3-4.4); LYMPH % 12.2 % (27.0-41.0); MEAN CELL VOLUME 87.9 fl (80.0-94.0); MEAN CORPUSCULAR HGB 27.9 pg (27.0-31.0); MEAN CORPUSCULAR HGB CONC 31.8 g/dl (33.0-37.0); MEAN PLATELET VOLUME 10.4 fl (9.6-12.3); MONO # 0.4 10*3/uL (0.1-1.0); MONO % 2.5 % (3.0-9.0); NEUT # 11.8 10*3/uL (2.3-7.9); NEUT % 84.3 % (47.0-73.0); PLATELET COUNT AUTOMATED 283 10*3/uL (130-400); RED BLOOD COUNT 4.87 10*6/uL (4.50-5.90); RED CELL DISTRI WIDTH 15.9 % (0-14.5)
[2021-08-22 06:53] LABS: CHLORIDE 104 mmol/L (98-107); CREATININE 1.04 mg/dL (0.70-1.30); POTASSIUM 4.7 mmol/L (3.5-5.1); SODIUM 134 mmol/L (136-145)
[2021-08-22 07:01] LABS: BUN 33 mg/dl (7-24)
[2021-08-22 08:00] VITALS: BP 135/94
[2021-08-22 12:00] VITALS: BP 98/74
[2021-08-22 16:00] VITALS: BP 135/71
[2021-08-22 20:00] VITALS: BP 124/98
[2021-08-23] VITALS: BP 137/86
[2021-08-23 07:05] LABS: BASO % 0.1 % (0.0-1.0); EOS % 0.1 % (1.0-4.0); HEMATOCRIT 44.3 % (42.0-52.0); LYMPH # 1.9 10*3/uL (1.3-4.4); LYMPH % 11.3 % (27.0-41.0); MEAN CORPUSCULAR HGB 27.4 pg (27.0-31.0); MEAN CORPUSCULAR HGB CONC 30.5 g/dl (33.0-37.0); MEAN PLATELET VOLUME 10.2 fl (9.6-12.3); MONO # 0.7 10*3/uL (0.1-1.0); MONO % 4.4 % (3.0-9.0); NEUT # 13.8 10*3/uL (2.3-7.9); NEUT % 82.8 % (47.0-73.0); PLATELET COUNT AUTOMATED 267 10*3/uL (130-400); RED BLOOD COUNT 4.92 10*6/uL (4.50-5.90); RED CELL DISTRI WIDTH 16.1 % (0-14.5); WHITE BLOOD COUNT 16.6 10*3/uL (4.8-10.8)
[2021-08-23 07:27] LABS: CHLORIDE 106 mmol/L (98-107); POTASSIUM 4.4 mmol/L (3.5-5.1); SODIUM 135 mmol/L (136-145)
[2021-08-23 07:46] LABS: BUN 40 mg/dl (7-24); CREATININE 1.14 mg/dL (0.70-1.30)
[2021-08-23 08:00] VITALS: BP 139/92
[2021-08-23] MEDS ORDERED: PREDNISONE10 MG PO (11:19)
[2021-08-23] MEDS ORDERED: LEVOFLOXACIN500 MG PO (11:19)
== END 2021-08-23 13:42 | disposition home health service (06) | DRG 871 ==
LOC: ED 09:37 → EDHOLD 13:52 → 5E 13:52
PROVIDERS: Emergency Medicine; Family Medicine; Internal Medicine; ADMIT Internal Medicine; ATTEND Internal Medicine
DX: A41.9 Sepsis, unspecified organism (principal); J18.9 Pneumonia, unspecified organism; E43 Unspecified severe protein-calorie malnutrition; I50.33 Acute on chronic diastolic (congestive) heart failure; J44.1 Chronic obstructive pulmonary disease with (acute) exacerbation; J44.0 Chronic obstructive pulmonary disease with (acute) lower respiratory infection; J96.11 Chronic respiratory failure with hypoxia; I13.0 Hypertensive heart and chronic kidney disease with heart failure and stage 1 through stage 4 chronic kidney disease, or unspecified chronic kidney disease; F44.9 Dissociative and conversion disorder, unspecified; R65.20 Severe sepsis without septic shock; I25.118 Atherosclerotic heart disease of native coronary artery with other forms of angina pectoris; K21.9 Gastro-esophageal reflux disease without esophagitis; D64.9 Anemia, unspecified; E87.8 Other disorders of electrolyte and fluid balance, not elsewhere classified; G47.30 Sleep apnea, unspecified; G40.909 Epilepsy, unspecified, not intractable, without status epilepticus; E66.9 Obesity, unspecified; N18.30 Chronic kidney disease, stage 3 unspecified; E55.9 Vitamin D deficiency, unspecified; E11.65 Type 2 diabetes mellitus with hyperglycemia; E11.22 Type 2 diabetes mellitus with diabetic chronic kidney disease; Z79.4 Long term (current) use of insulin; Z68.35 Body mass index [BMI] 35.0-35.9, adult; Q85.00 Neurofibromatosis, unspecified; Z88.6 Allergy status to analgesic agent; Z91.041 Radiographic dye allergy status; Z91.013 Allergy to seafood; Z90.49 Acquired absence of other specified parts of digestive tract

== ENCOUNTER 2021-11-14 15:07 | Emergency (ER) | payer OTHER ==
[~2021-11-14] VITALS: Ht 177.8 cm; Wt 112.5 kg
[~2021-11-14 15:07] MED LIST changes: +AMLODIPINE BESY10 MG PO; +AMLODIPINE BESYL5 MG PO; +AVPAK AZITHROM250 M1 PO; +FENOFIBRATE54 MG PO; +FUROSEMIDE40 MG PO; +GABAPENTIN400 MG PO; +GLUCOTROL XL10 MG PO; +INSULIN LI100 UNIT/1 SQ; +LASIX80 MG PO; +LATU40TA1 PO; +LEVOFLOXACIN500 MG PO; +OMNICEF300 MG PO; +PERCOCET 10-321 EACH PO; +PLAVIX75 M1 PO; +PROAIR HFA8.5 GM INH
[2021-11-14 16:01] LABS: BASO % 0.4 % (0.0-1.0); EOS # 0.1 10*3/uL (0.0-0.4); EOS % 1.5 % (1.0-4.0); LYMPH # 3.4 10*3/uL (1.3-4.4); LYMPH % 35.3 % (27.0-41.0); MEAN CELL VOLUME 91.9 fl (80.0-94.0); MEAN CORPUSCULAR HGB 29.1 pg (27.0-31.0); MEAN CORPUSCULAR HGB CONC 31.7 g/dl (33.0-37.0); MEAN PLATELET VOLUME 10.9 fl (9.6-12.3); MONO # 0.7 10*3/uL (0.1-1.0); MONO % 7.6 % (3.0-9.0); NEUT # 5.3 10*3/uL (2.3-7.9); NEUT % 54.8 % (47.0-73.0); PLATELET COUNT AUTOMATED 213 10*3/uL (130-400); RED BLOOD COUNT 4.57 10*6/uL (4.50-5.90); RED CELL DISTRI WIDTH 16.9 % (0-14.5); WHITE BLOOD COUNT 9.6 10*3/uL (4.8-10.8)
[2021-11-14 16:12] LABS: ACT PARTIAL THROMBO TIME 30.5 SECONDS (20.0-32.1); INTERNATIONAL NORM RATIO 1.1 (2.0-3.5)
[2021-11-14 16:19] LABS: ALKALINE PHOSPHATASE 51 U/L (45-117); BUN 15 mg/dl (7-24); CHLORIDE 110 mmol/L (98-107); CREATININE 1.01 mg/dL (0.70-1.30); POTASSIUM 4.5 mmol/L (3.5-5.1); SGOT/AST 22 IU/L (3-35); SGPT/ALT 19 U/L (12-78); SODIUM 141 mmol/L (136-145)
[2021-11-14] MEDS ORDERED: VIBRAMYCIN HYC100 MG PO (19:35)
== END 2021-11-14 19:37 | disposition home or self-care (01) ==
LOC: ED 15:07
PROVIDERS: Emergency Medicine
DX: S09.90XA Unspecified injury of head, initial encounter (principal); R07.81 Pleurodynia; R51.9 Headache, unspecified; M54.6 Pain in thoracic spine; M54.50 Low back pain, unspecified; J18.9 Pneumonia, unspecified organism; F17.200 Nicotine dependence, unspecified, uncomplicated; Z79.82 Long term (current) use of aspirin; Z91.041 Radiographic dye allergy status; Z88.6 Allergy status to analgesic agent; Z91.013 Allergy to seafood; Z79.899 Other long term (current) drug therapy; Z79.4 Long term (current) use of insulin; Z79.2 Long term (current) use of antibiotics; Z98.890 Other specified postprocedural states; Z90.49 Acquired absence of other specified parts of digestive tract; Z95.5 Presence of coronary angioplasty implant and graft; W18.01XA Striking against sports equipment with subsequent fall, initial encounter; Y93.89 Activity, other specified; Y92.098 Other place in other non-institutional residence as the place of occurrence of the external cause; Y99.8 Other external cause status

== ENCOUNTER 2022-07-07 16:37 | Inpatient (IN) | payer OTHER ==
[~2022-07-07] VITALS: Ht 180.3 cm; Wt 109.1 kg
[~2022-07-07 16:37] MED LIST changes: +VIBRAMYCIN HYC100 MG PO
[2022-07-07 16:47] VITALS: BP 83/65
[2022-07-07] MEDS ORDERED: Ipratropium Brom3 ML INH (16:58)
[2022-07-07 17:06] LABS: BASO # 0.1 10*3/uL (0.0-0.1); BASO % 0.8 % (0.0-1.0); EOS # 0.5 10*3/uL (0.0-0.4); EOS % 4.9 % (1.0-4.0); LYMPH # 2.3 10*3/uL (1.3-4.4); LYMPH % 23.8 % (27.0-41.0); MEAN CELL VOLUME 80.7 fl (80.0-94.0); MEAN CORPUSCULAR HGB CONC 30.9 g/dl (33.0-37.0); MEAN PLATELET VOLUME 10.7 fl (9.6-12.3); MONO # 1.1 10*3/uL (0.1-1.0); MONO % 11.7 % (3.0-9.0); NEUT # 5.6 10*3/uL (2.3-7.9); NEUT % 57.3 % (47.0-73.0); PLATELET COUNT AUTOMATED 319 10*3/uL (130-400); RED BLOOD COUNT 5.45 10*6/uL (4.50-5.90); RED CELL DISTRI WIDTH 19.3 % (0-14.5); WHITE BLOOD COUNT 9.8 10*3/uL (4.8-10.8)
[2022-07-07 17:17] VITALS: BP 112/68
[2022-07-07 17:18] LABS: ACT PARTIAL THROMBO TIME 25.1 SECONDS (20.0-32.1)
[2022-07-07 17:24] LABS: ALKALINE PHOSPHATASE 103 U/L (45-117); BUN 22 mg/dl (7-24); CHLORIDE 105 mmol/L (98-107); CREATININE 1.32 mg/dL (0.70-1.30); POTASSIUM 3.7 mmol/L (3.5-5.1); SGPT/ALT 27 U/L (12-78); SODIUM 135 mmol/L (136-145); TOTAL PROTEIN 7.4 gm/dL (6.4-8.2)
[2022-07-07 19:21] VITALS: BP 117/68
[2022-07-07 20:21] VITALS: BP 103/47
[2022-07-07 21:15] VITALS: BP 116/78
[2022-07-07 21:23] VITALS: BP 136/58
[2022-07-07 23:35] LABS: BILIRUBIN Negative (Negative); BLOOD Negative (Negative); CLARITY Clear (Clear); COLOR Yellow (Yellow); GLUCOSE 2+ (Negative); KETONE Negative (Negative); LEUKO ESTERASE Negative (Negative); NITRITE Negative (Negative); PH 5.5 (4.5-8.0); SPECIFIC GRAVITY >= 1.030 (1.001-1.030)
[2022-07-08] VITALS: BP 139/78
[2022-07-08 04:48] LABS: BASO % 0.4 % (0.0-1.0); EOS % 0.2 % (1.0-4.0); HEMATOCRIT 40.2 % (42.0-52.0); LYMPH # 1.4 10*3/uL (1.3-4.4); LYMPH % 27.5 % (27.0-41.0); MEAN CELL VOLUME 81.7 fl (80.0-94.0); MEAN CORPUSCULAR HGB 24.4 pg (27.0-31.0); MEAN CORPUSCULAR HGB CONC 29.9 g/dl (33.0-37.0); MEAN PLATELET VOLUME 9.9 fl (9.6-12.3); MONO # 0.3 10*3/uL (0.1-1.0); MONO % 5.9 % (3.0-9.0); NEUT # 3.3 10*3/uL (2.3-7.9); NEUT % 65.2 % (47.0-73.0); PLATELET COUNT AUTOMATED 288 10*3/uL (130-400); RED BLOOD COUNT 4.92 10*6/uL (4.50-5.90); WHITE BLOOD COUNT 5.1 10*3/uL (4.8-10.8)
[2022-07-08 04:55] LABS: POTASSIUM 4.5 mmol/L (3.5-5.1)
[2022-07-08 05:04] LABS: ALKALINE PHOSPHATASE 83 U/L (45-117); BUN 19 mg/dl (7-24); CHLORIDE 106 mmol/L (98-107); CHOLESTEROL 97 mg/dL (<200); CREATININE 1.04 mg/dL (0.70-1.30); LDL CHOLESTEROL 33 mg/dL (9-159); POTASSIUM 4.5 mmol/L (3.5-5.1); SGPT/ALT 23 U/L (12-78); SODIUM 136 mmol/L (136-145); TOTAL PROTEIN 6.7 gm/dL (6.4-8.2); TRIGLYCERIDES 106 mg/dl (<150)
[2022-07-08 06:14] LABS: THYROID STIM HORMONE (HS) 0.387 uIU/ml (0.358-4.75)
[2022-07-08 08:00] VITALS: BP 119/74
[2022-07-08 12:00] VITALS: BP 148/81
[2022-07-08 16:00] VITALS: BP 118/60; BP 130/86
[2022-07-08 20:00] VITALS: BP 110/68; BP 97/48
[2022-07-09] VITALS: BP 117/69
[2022-07-09 06:25] LABS: BASO % 0.1 % (0.0-1.0); HEMATOCRIT 36.6 % (42.0-52.0); LYMPH # 2.2 10*3/uL (1.3-4.4); MEAN CELL VOLUME 80.3 fl (80.0-94.0); MEAN CORPUSCULAR HGB 24.6 pg (27.0-31.0); MEAN CORPUSCULAR HGB CONC 30.6 g/dl (33.0-37.0); MONO # 1.2 10*3/uL (0.1-1.0); MONO % 11.4 % (3.0-9.0); NEUT # 6.9 10*3/uL (2.3-7.9); NEUT % 66.9 % (47.0-73.0); PLATELET COUNT AUTOMATED 306 10*3/uL (130-400); RED BLOOD COUNT 4.56 10*6/uL (4.50-5.90); RED CELL DISTRI WIDTH 18.8 % (0-14.5); WHITE BLOOD COUNT 10.3 10*3/uL (4.8-10.8)
[2022-07-09 06:27] LABS: BUN 22 mg/dl (7-24); CHLORIDE 105 mmol/L (98-107); CREATININE 1.01 mg/dL (0.70-1.30); POTASSIUM 4.4 mmol/L (3.5-5.1); SODIUM 136 mmol/L (136-145)
[2022-07-09 08:00] VITALS: BP 136/74
[2022-07-09 12:00] VITALS: BP 121/80
[2022-07-09] MEDS ORDERED: PREDNISONE10 MG PO (12:12)
[2022-07-09] MEDS ORDERED: LEVOFLOXACIN500 MG PO (12:12)
[2022-07-09] MEDS ORDERED: TOPROL XL25 MG PO (12:15)
== END 2022-07-09 13:05 | disposition home or self-care (01) | DRG 871 ==
LOC: ED 16:37 → EDHOLD 20:31 → 4E 20:31
PROVIDERS: Family Medicine; Internal Medicine; Student in an Organized Health Care Education/Training Program; ADMIT Family Medicine; ATTEND Family Medicine
DX: A41.9 Sepsis, unspecified organism (principal); J18.9 Pneumonia, unspecified organism; J96.01 Acute respiratory failure with hypoxia; N17.0 Acute kidney failure with tubular necrosis; E87.20 Acidosis, unspecified; I50.32 Chronic diastolic (congestive) heart failure; I13.0 Hypertensive heart and chronic kidney disease with heart failure and stage 1 through stage 4 chronic kidney disease, or unspecified chronic kidney disease; E87.1 Hypo-osmolality and hyponatremia; J44.1 Chronic obstructive pulmonary disease with (acute) exacerbation; I25.110 Atherosclerotic heart disease of native coronary artery with unstable angina pectoris; R65.20 Severe sepsis without septic shock; N18.31 Chronic kidney disease, stage 3a; G89.29 Other chronic pain; M54.9 Dorsalgia, unspecified; K21.9 Gastro-esophageal reflux disease without esophagitis; E78.5 Hyperlipidemia, unspecified; D64.9 Anemia, unspecified; I71.21 Aneurysm of the ascending aorta, without rupture; E11.22 Type 2 diabetes mellitus with diabetic chronic kidney disease; E11.65 Type 2 diabetes mellitus with hyperglycemia; Q85.00 Neurofibromatosis, unspecified; Z88.8 Allergy status to other drugs, medicaments and biological substances; Z91.041 Radiographic dye allergy status; Z91.013 Allergy to seafood; Z90.49 Acquired absence of other specified parts of digestive tract; Z90.3 Acquired absence of stomach [part of]; Z86.73 Personal history of transient ischemic attack (TIA), and cerebral infarction without residual deficits; I25.2 Old myocardial infarction; Z80.1 Family history of malignant neoplasm of trachea, bronchus and lung; Z80.3 Family history of malignant neoplasm of breast; Z79.4 Long term (current) use of insulin

== ENCOUNTER 2024-05-09 18:09 | Emergency (ER) | payer OTHER ==
[~2024-05-09] VITALS: Ht 154.9 cm; Wt 99.8 kg
[~2024-05-09 18:09] MED LIST changes: +Ipratropium Brom3 ML INH
[2024-05-09] MEDS ORDERED: Acetaminophen/Hydrocodone 5 MG/325 MG TABLET PO ONE (19:15)
== END 2024-05-09 19:34 | disposition home or self-care (01) ==
LOC: ED 18:09
DX: S63.502A Unspecified sprain of left wrist, initial encounter (principal); I10 Essential (primary) hypertension; E11.9 Type 2 diabetes mellitus without complications; J44.9 Chronic obstructive pulmonary disease, unspecified; I25.10 Atherosclerotic heart disease of native coronary artery without angina pectoris; G43.909 Migraine, unspecified, not intractable, without status migrainosus; F17.200 Nicotine dependence, unspecified, uncomplicated; Z91.013 Allergy to seafood; Z88.6 Allergy status to analgesic agent; Z90.49 Acquired absence of other specified parts of digestive tract; Z95.5 Presence of coronary angioplasty implant and graft; Z98.890 Other specified postprocedural states; X50.0XXA Overexertion from strenuous movement or load, initial encounter; Y93.89 Activity, other specified; Y92.89 Other specified places as the place of occurrence of the external cause; Y99.8 Other external cause status